=== PATIENT | female | born 1950 | race Caucasian/White ===

== ENCOUNTER → 2019-07-10 14:53 | Outpatient (CLI) | payer OTHER, SELFPAY ==
--- NOTE | 2019-07-10 15:08 | XR_ITS ---
PROCEDURE: XR LUMBAR SPINE 6V W BENDING CLINICAL INDICATION: LT LUMBAR RASICULOPATHY,H/O LUMBAR SURGERY,WEAKNESS LT FOOT COMPARISON: No exams were available for comparison FINDINGS: Mild dextroscoliosis of the lumbar spine with multilevel degenerative disc disease from T12-S1. There is 8 mm anterolisthesis of L3 on L4. There is mild wedging of L1 with loss of height anteriorly of approximately 20 percent. Age indeterminate. There is minimal wedging of L3 and L4 with loss of height anteriorly of approximately 10 percent age indeterminate. Flexion and extension views of lumbar spine show no abnormal subluxation in flexion or extension. There is generalized vascular calcification. IMPRESSION: Dextroscoliosis with multilevel lumbar spondylosis and age indeterminate wedging of L1, L3, and L4 with 8 mm anterolisthesis of L2 on L3 No abnormal subluxation in flexion or extension Dictated by: Iain Arriaga MD 07/10/2019 15:34 Electronically signed by Iain Arriaga MD in [place] 07/10/2019 15:34
== END ==
PROVIDERS: PCP Family Medicine; Visit Provider Family Medicine
DX: M54.16 Radiculopathy, lumbar region (principal); R29.898 Other symptoms and signs involving the musculoskeletal system; Z98.890 Other specified postprocedural states
CPT/HCPCS: 72114

== ENCOUNTER 2022-12-06 12:16 | Inpatient (IN) | payer MEDICARE, OTHER, SELFPAY ==
[2022-12-06] VITALS (14 sets, daily range): BP systolic 110–178; BP diastolic 69–90; PULSE 69–91; RESP 16–20; TEMP 36.6–37.1; O2SAT 94–97; BMI 21.0
--- NOTE | 2022-12-06 12:23 | XR_ITS ---
PROCEDURE INFORMATION: Exam: XR Left Knee Exam date and time: 12/06/2022 12:44 PM Age: 72 years old Clinical indication: Injury or trauma; Fall; Blunt trauma; Knee; Left TECHNIQUE: Imaging protocol: Radiologic exam of the left knee. Views: 3 views. COMPARISON: No relevant prior studies available. FINDINGS: Bones/joints: Diffuse osteopenia. There are pronounced degenerative changes of the knee joint, predominantly involving the medial joint compartment. No visible fracture or dislocation. No joint effusion Soft tissues: Normal. IMPRESSION: 1. There are pronounced degenerative changes of the knee joint, predominantly involving the medial joint compartment. 2. No visible fracture or dislocation.
--- NOTE | 2022-12-06 12:25 | XR_ITS ---
PROCEDURE INFORMATION: Exam: XR Left Hip Exam date and time: 12/06/2022 12:43 PM Age: 72 years old Clinical indication: Injury or trauma; Fall; Blunt trauma (contusions or hematomas); Left; Hip TECHNIQUE: Imaging protocol: Radiologic exam of the left hip. Views: 2 or 3 views hip with pelvis when performed. COMPARISON: CR XR LUMBAR SPINE 6V W BENDING 07/10/2019 3:10 PM FINDINGS: Bones/joints: No visible fracture or dislocation. Soft tissues: Unremarkable. IMPRESSION: No visible fracture or dislocation.
--- NOTE | 2022-12-06 12:25 | XR_ITS ---
PROCEDURE INFORMATION: Exam: XR Right Hip Exam date and time: 12/06/2022 12:40 PM Age: 72 years old Clinical indication: Injury or trauma; Fall; Blunt trauma (contusions or hematomas); Right; Hip TECHNIQUE: Imaging protocol: Radiologic exam of the right hip. Views: 2 or 3 views hip with pelvis when performed. COMPARISON: CR XR LUMBAR SPINE 6V W BENDING 07/10/2019 3:10 PM FINDINGS: Bones/joints: Acute impacted intertrochanteric fracture of the right femur. Mild varus angulation noted. Soft tissues: Unremarkable. IMPRESSION: Acute impacted intertrochanteric fracture of the right femur. Mild varus angulation noted.
--- NOTE | 2022-12-06 12:32 | HMH.EDGENADL ---
Discharge Plan Disposition Patient Disposition: Admitted Condition: Fair Clinical Impressions Clinical Impression: Closed intertrochanteric fracture of right femur Qualifiers: Encounter type: initial encounter Fracture alignment: nondisplaced Qualified Code(s): S72.144A - Nondisplaced intertrochanteric fracture of right femur, initial encounter for closed fracture Discharge ED Provider: Mg Monae Adult HPI General Chief complaint: Fall Stated complaint: fall Time Seen by Provider: 12/06/22 12:30 Mode of Arrival: EMS Source of Information: Patient and EMS Limitations: No Limitations Description of Symptoms (Recalled from ER Triage Doc. by RN): pt to ed c/o fall. pt states she was walking on hardwood floors with wool socks, slipped and fell. pt is c/o pelvic pain. History of Present Illness HPI narrative: This 72-year-old female with a history of diabetes, hyperlipidemia presents to the emergency department 5 days after fall. Patient states she fell 5 days ago, she denies losing consciousness and does not take any blood thinners, but she was unable to get up. She states she was crawling around her house primarily on her left side. She was unable to call for help. Her real estate consultant stop by the house today and found her down. Patient had urinated on herself. She is complaining of pain in the left hip and left knee and states she is generally weak. She has had minimal oral intake in the last few days. Patient also casually mentions that she has leukemia that she is not being treated for. Related Data Home Medications Medication Instructions Recorded Confirmed amlodipine 10 mg tablet 10 mg PO DAILY 12/06/22 12/06/22 atorvastatin 40 mg tablet 40 mg PO DAILY 12/06/22 12/06/22 lisinopril 40 mg tablet 40 mg PO DAILY 12/06/22 12/06/22 metformin 500 mg tablet 500 mg PO DAILY 12/06/22 12/06/22 Allergies Allergy/AdvReac Type Severity Reaction Status Date / Time No Known Allergies Allergy Verified 12/06/22 12:18 [facility] Disclaimer: The information contained in this section may have been updated after the patient was seen, as this information can be updated by other users. Medical History (Updated 12/06/22 @ 16:29 by Mg Monae MD) Diabetes HLD (hyperlipidemia) HTN (hypertension) Leukemia Family History Other No significant family history Social History (Updated 12/06/22 @ 16:19 by Camilla Seymour RN) Smoking Status: Never smoker alcohol intake: never current occupational status: other Travel in the last 8 weeks: None ROS Obtained: Yes All systems reviewed & no additional complaints except as documented Constitutional Constitutional: Reports body ache, Denies chills, Denies fever(s), Denies headache(s) and Reports weakness Eyes Eyes: Denies change in vision ENT Ears, Nose, Mouth, and Throat: Denies dizziness, Denies headache(s), Denies nasal congestion and Denies sore throat Cardiovascular Cardiovascular: Denies chest pain, Denies dyspnea and Denies leg edema Respiratory Respiratory: Denies cough and Denies dyspnea Gastrointestinal Gastrointestingal: Denies constipation, diarrhea, nausea or vomiting Genitourinary Female Genitourinary: Denies dysuria Musculoskeletal Musculoskeletal: Reports as per HPI, Reports arthralgias, Reports muscle weakness (Diffuse, baseline), Denies myalgias, Denies numbness and Denies tingling Integumentary/Breasts Skin/Breast: Denies change in pigmentation Neurologic Neurologic: Denies dizziness, Denies headache(s), Denies numbness, Denies tingling and Reports weakness Physical Exam General General appearance: alert, in no apparent distress and cachectic Head Head exam: atraumatic and normocephalic Eye Eye exam: Present PERRL and EOMI ENT ENT exam: Present mucous membranes moist Neck Neck exam: Present normal inspection and full ROM Chest Chest inspection: Present symmetric chest wall rise
[2022-12-06 12:33] LABS: Microscopic, Urine URINE MICROSCOPIC (MICROSCOPIC)
[2022-12-06 12:38] LABS: Appearance,Urine CLEAR (Clear); Bilirubin,Urine Negative (Negative); Blood, Urine Negative (Negative); Color,Urine YELLOW (Yellow); Glucose,Urine (UA) Negative (Negative); Ketones,Urine TRACE (Negative); Leukocyte Esterase,Urine Negative (Negative); Nitrate,Urine Negative (Negative); Protein,Urine Negative (Negative); Urobilinogen,Urine 0.2 EU/dl (0.2)
[2022-12-06 12:38] LABS: POC Glucose,Bedside 103 (70-110)
[2022-12-06 12:41] LABS: Squamous Epithelial Cell,Urine Occasional #/hpf (0-5); WBC,Urine Occasional #/hpf (0-3)
--- NOTE | 2022-12-06 12:59 | PC.NURSE ---
PT RETURNED FROM XR
[2022-12-06 13:36] LABS: Chloride 101 mmol/L (98-107); Potassium 3.9 mmoL/L (3.5-5.1); Sodium 136 mmol/L (136-145)
[2022-12-06 13:39] LABS: Alanine Aminotransferase 34 U/L (12-78); Albumin Level 3.8 g/dl (3.5-5.0); Albumin/Globulin Ratio 1.3 (1.1-1.8); Alkaline Phosphatase 79 U/L (38-126); Anion Gap 9.9 mEq/L (5-15); Aspartate Amino Transferase 50 U/L (14-36); Bilirubin,Total 1.3 mg/dl (0.2-1.3); Blood Urea Nitrogen 31 mg/dl (7-17); Calcium 8.9 mg/dl (8.4-10.2); Carbon Dioxide 29 mmol/L (22.0-30.0); Creatine Kinase 290 U/L (30-135); Creatinine Clearance Estimated 42 mL/min (50-200); Estimated Glomerular Filt Rate 99 ml/min (>60); GFR (African American) 119 ML/MIN (>60); Globulin 2.9 g/dL (1.3-3.2); Glucose 100 mg/dl (74-100); Total Protein,Serum 6.7 g/dl (6.3-8.2)
[2022-12-06 13:40] LABS: Lactic Acid 1.1 mmol/L (0.7-2.1)
--- NOTE | 2022-12-06 13:46 | ECG_ITS ---
APPROVED REPORT Exam: Resting ECG HR:83 bpm ECG Measurements Heart Rate 83 AXES QRSd 83 QRS 64 QT 380 T 31 QTc 419 Conclusion ATRIAL FIBRILLATION NONSPECIFIC ST & T-WAVE ABNORMALITY ABNORMAL RHYTHM ECG UNCONFIRMED REPORT Electronically signed by : Antonino De Leon MD 12/07/2022 20:25:23
[2022-12-06 14:14] LABS: Basophils # 3.2 K/mm3 (0-0.2); Eosinophils # 0.1 K/mm3 (0.0-0.4); Eosinophils % 0.1 % (0.1-12.0); Hematocrit 39.1 % (37.0-47.0); Hemoglobin 13.7 g/dL (12.2-16.2); Lymphocytes # 67.4 K/mm3 (0.7-4.5); Lymphocytes % 83.4 % (10-50); Mean Corpuscular Hemoglobin 29.6 pg (27.0-31.2); Mean Corpuscular Volume 84.5 fl (81-99); Mean Platelet Volume 8.4 fl (7.4-10.4); Monocytes % 1.2 % (1.7-9.3); Neutrophils # 12.3 K/mm3 (1.8-7.8); Neutrophils % 15.3 % (37.0-80.0); Platelet Count 278 K/mm3 (142-424); Red Blood Count 4.62 M/mm3 (4.20-5.40); Red Cell Distribution Width 13.8 % (11.5-17.5)
[2022-12-06 14:21] LABS: White Blood Count 80.8 K/mm3 (4.8-10.8)
[2022-12-06 14:22] LABS: MANUAL DIFFERENTIAL MANUAL DIFFERENTIAL (MANUAL DIFF)
[2022-12-06 14:34] LABS: Lymphocytes % 78 % (10-50); Monocytes % 3 % (2-9); Neutrophils % 19 % (42-76); Platelet Estimate Normal; RBC Morphology Normal; Total Cells Counted 100
--- NOTE | 2022-12-06 15:27 | EXP.HP ---
History of Present Illness *Admission Date: 12/06/22 *Reason for visit:: fall, hip pain *History of present illness: Ms. Ahumada is a 72-year-old female with history of hypertension, prediabetes, CLL (on no treatment), and hyperlipidemia. She was brought to the ER via EMS after being found on the floor at her home by her realtor. States she was walking on the floor in socks while taking her dog out approximately 5 days ago when she slipped and fell. Had onset of right hip pain. Has spent the past 5 days getting around her house on the floor and is skinned her knees and her left hip. Did not have the ability to get help as she lives by herself. Was found today by her realtor as she is in the process of selling her home. Denies any trauma to her head, loss of consciousness. Not on any blood thinners. No chest pain, shortness of breath, nausea or vomiting. She does smoke but has not had much to smoke, eat, or drink for the past 5 days. On evaluation she mentioned she has leukemia. Labs obtained in the ER along with imaging show intertrochanteric fracture of the right hip and leukocytosis of 80,000, lymphocyte predominant. Medicine was consulted for admission with orthopedics consult in the morning. Reviewed patient's chart in epic with as well as contacting [facility] in [place]. -Patient last seen at in 2016 after suspected stroke. Had some narrowing of her [employer] vasculature but CT does not mention jessica stroke. At that time A1c was at 6.6, TSH normal, white cell count 12, remainder of labs unremarkable -Most recent labs obtained on November 13 at [facility] with white cell count of 56,000. Last seen in the ER at [facility] in 2016 prior to being transferred to for reason above. On September 16, 2021, diagnosis of CLL was entered in her chart in the [facility] [employer] system. -Has seen oncology in [place], not currently on any treatment. No plan for chemotherapy or radiation. Patient does not want anything other than vitamins or supplements to treat her current condition. When discussing CODE STATUS and if she would want aggressive measures to bring her back to life if her heart stopped or if she , patient states she wants to be cared for to the best of our ability but if she dies she wants to pass peacefully. We will make her DNR. [facility] Disclaimer: The information contained in this section may have been updated after the patient was seen, as this information can be updated by other users. Medical History Diabetes HLD (hyperlipidemia) HTN (hypertension) Leukemia Surgical History No pertinent past surgical history Family History No significant family history Social History Smoking Status: Never smoker alcohol intake: never current occupational status: other Travel in the last 8 weeks: None Review of Systems Review of Systems Review of systems (narrative): 14 point review of systems performed, pertinent positives and negatives as per HPI Constitutional Constitutional: Denies headache(s) and Reports weakness ENT Ears, Nose, Mouth, and Throat: Denies dizziness and Denies headache(s) *Musculoskeletal Musculoskeletal: Denies numbness and Denies tingling *Neurologic Neurologic: Denies dizziness, Denies headache(s), Denies numbness, Denies tingling and Reports weakness Meds Home Medications and Allergies Home Medications Medication Instructions Recorded Confirmed Type amlodipine 10 mg tablet 10 mg PO DAILY 12/06/22 12/06/22 History atorvastatin 40 mg tablet 40 mg PO DAILY 12/06/22 12/06/22 History lisinopril 40 mg tablet 40 mg PO DAILY 12/06/22 12/06/22 History metformin 500 mg tablet 500 mg PO DAILY 12/06/22 12/06/22 History New Prescriptions to Start Prescriptions: Allergies Allergy/AdvReac Type Jillian
--- NOTE | 2022-12-06 15:35 | PC.NURSE ---
report called to lourdes RN
[2022-12-06 15:41] LABS: Lactate Dehydrogenase 285 U/L (313-618); Uric Acid 5.6 mg/dl (2.5-6.2)
[2022-12-06 15:43] LABS: Activated Partial Thrombo Time 28.3 seconds (22.8-30.6); INR 1.01 (0.9-1.1); Prothrombin Time 10.9 seconds (10.1-12.5)
--- NOTE | 2022-12-06 15:56 | PC.NURSE ---
arrived to floor by stretcher from ED
[2022-12-06 15:59] LABS: 25-OH Vitamin D, Total 68.1 ng/mL (30-100)
[2022-12-06 16:05] LABS: Hemoglobin A1C 5.7 % (4.0-6.0)
[2022-12-06 16:13] LABS: Thyroid Stimulating Hormone 9.95 uIU/mL (0.465-4.68)
--- NOTE | 2022-12-06 17:20 | CT_ITS ---
PROCEDURE INFORMATION: Exam: CT Right Lower Extremity Without Contrast, Hip Exam date and time: 12/06/2022 6:06 PM Age: 72 years old Clinical indication: Injury or trauma; Blunt trauma; Patient HX: Right hip pain due to fall; Additional info: Eval bone stability for surgery. TECHNIQUE: Imaging protocol: CT of the right lower extremity without contrast was performed. Exam focused on the hip. 3D rendering (Not supervised by radiologist): MIP and/or 3D reconstructed images were created by the technologist. Radiation optimization: All CT scans at this facility use at least one of these dose optimization techniques: automated exposure control; mA and/or kV adjustment per patient size (includes targeted exams where dose is matched to clinical indication); or iterative reconstruction. REPORTING DATA: Count of CT and Cardiac NM exams in prior 12 months: This patient has received 0 known CTs and 0 known cardiac nuclear medicine studies in the 12 months prior to the current study. COMPARISON: CR XR HIP RT 2-3V W/PELVIS 12/06/2022 12:40 PM FINDINGS: Bones/joints: Acute comminuted intertrochanteric fracture is re-identified. Alignment is not substantially changed from prior exam. Deformity along the distal sacrococcygeal junction favored sequela of prior injury. Soft tissues: Muscle edema noted. No discrete hematoma. IMPRESSION: Acute comminuted intertrochanteric fracture of the right femur.
[2022-12-06 17:25] LABS: POC Glucose,Bedside 102 (70-110)
--- NOTE | 2022-12-06 17:40 | XR_ITS ---
FINAL REPORT CLINICAL HISTORY: wheeze COMPARISON: 12/06/2022 FINDINGS: A single portable view of the chest was obtained. The heart size and pulmonary vascularity are within normal limits. The mediastinum is within normal limits. Persistent right base opacity of uncertain etiology but may represent unusual atelectasis or pneumonia. Mass is not excluded.. The bony thorax is intact. IMPRESSION: Persistent right base opacity may represent unusual atelectasis or pneumonia. Mass not excluded. Recommend chest CT with contrast. Reviewed, Interpreted and Dictated by Grant Lugo III, MD Transcribed by Mar Cerna Authenticated and [facility]
--- NOTE | 2022-12-06 17:44 | PC.WOUNDNOTE ---
LEFT OUTER KNEE LEFT HIP BRUISING TO RIGHT INNER THIGH
[2022-12-06 20:15] LABS: POC Glucose,Bedside 119 (70-110)
[2022-12-07] VITALS (21 sets, daily range): BP systolic 99–145; BP diastolic 44–74; PULSE 64–86; RESP 14–20; TEMP 36.4–43; O2SAT 87–95; BMI 22.1
--- NOTE | 2022-12-07 03:52 | PC.NURSE ---
No pain reported from patient. VS stable and patient remained on room air. Patient able to rest this shift.
[2022-12-07 06:06] LABS: POC Glucose,Bedside 108 (70-110)
[2022-12-07 06:21] LABS: Chloride 103 mmol/L (98-107); Potassium 4.2 mmoL/L (3.5-5.1); Sodium 133 mmol/L (136-145)
[2022-12-07 06:23] LABS: Alanine Aminotransferase 26 U/L (12-78); Aspartate Amino Transferase 42 U/L (14-36); Blood Urea Nitrogen 25 mg/dl (7-17); Creatinine Clearance Estimated 44 mL/min (50-200); Estimated Glomerular Filt Rate 99 ml/min (>60); GFR (African American) 119 ML/MIN (>60)
[2022-12-07 06:24] LABS: Albumin Level 3.1 g/dl (3.5-5.0); Albumin/Globulin Ratio 1.2 (1.1-1.8); Alkaline Phosphatase 61 U/L (38-126); Anion Gap 6.2 mEq/L (5-15); Calcium 8.3 mg/dl (8.4-10.2); Carbon Dioxide 28 mmol/L (22.0-30.0); Globulin 2.6 g/dL (1.3-3.2); Glucose 97 mg/dl (74-100); Magnesium 1.9 mg/dl (1.6-2.3); Total Protein,Serum 5.7 g/dl (6.3-8.2)
[2022-12-07 06:43] LABS: Basophils # 0.2 K/mm3 (0-0.2); Basophils % 0.3 % (0.1-2.0); Eosinophils # 0.2 K/mm3 (0.0-0.4); Eosinophils % 0.3 % (0.1-12.0); Hematocrit 33.1 % (37.0-47.0); Lymphocytes # 55.5 K/mm3 (0.7-4.5); Lymphocytes % 84.9 % (10-50); Mean Corpuscular HGB Conc 36.5 g/dL (31.8-35.4); Mean Corpuscular Hemoglobin 30.5 pg (27.0-31.2); Mean Corpuscular Volume 83.5 fl (81-99); Mean Platelet Volume 8.6 fl (7.4-10.4); Monocytes # 0.8 K/mm3 (0.1-1.0); Monocytes % 1.2 % (1.7-9.3); Neutrophils # 8.7 K/mm3 (1.8-7.8); Platelet Count 280 K/mm3 (142-424); Red Blood Count 3.96 M/mm3 (4.20-5.40); Red Cell Distribution Width 13.7 % (11.5-17.5)
[2022-12-07 06:50] LABS: Hemoglobin 12.1 g/dL (12.2-16.2)
[2022-12-07 06:51] LABS: Neutrophils % 13.3 % (37.0-80.0)
[2022-12-07 07:13] LABS: White Blood Count 65.4 K/mm3 (4.8-10.8)
[2022-12-07 07:14] LABS: MANUAL DIFFERENTIAL MANUAL DIFFERENTIAL (MANUAL DIFF)
--- NOTE | 2022-12-07 07:21 | EXP.ORTH.CON ---
History of Present Illness *Admission Date: 12/06/22 *Reason for visit:: Right hip fracture *History of present illness: Ms. Ahumada is a 72-year-old female with history of hypertension, prediabetes, CLL (on no treatment), and hyperlipidemia. She was brought to the ER via EMS after being found on the floor at her home by her realtor. States she was walking on the floor in socks while taking her dog out approximately 5 days ago when she slipped and fell. Had onset of right hip pain. Has spent the past 5 days getting around her house on the floor and is skinned her knees and her left hip. Did not have the ability to get help as she lives by herself. Was found today by her realtor as she is in the process of selling her home. Denies any trauma to her head, loss of consciousness. Not on any blood thinners. No chest pain, shortness of breath, nausea or vomiting. She does smoke but has not had much to smoke, eat, or drink for the past 5 days. On evaluation she mentioned she has leukemia. Labs obtained in the ER along with imaging show intertrochanteric fracture of the right hip and leukocytosis of 80,000, lymphocyte predominant. Reviewed patient's chart in epic with as well as contacting [facility] in [place]. -Patient last seen at in 2016 after suspected stroke. Had some narrowing of her [employer]CH [employer]PER[employer] vasculature but CT does not mention jessica stroke. At that time A1c was at 6.6, TSH normal, white cell count 12, remainder of labs unremarkable -Most recent labs obtained on November 13 at [facility] with white cell count of 56,000. Last seen in the ER at [facility] in 2016 prior to being transferred to for reason above. On September 16, 2021, diagnosis of CLL was entered in her chart in the [facility] system. -Has seen oncology in [place], not currently on any treatment. No plan for chemotherapy or radiation. Patient does not want anything other than vitamins or supplements to treat her current condition. [facility] Disclaimer: The information contained in this section may have been updated after the patient was seen, as this information can be updated by other users. Medical History Diabetes HLD (hyperlipidemia) HTN (hypertension) Leukemia Surgical History No pertinent past surgical history Family History Other No significant family history Social History Smoking Status: Never smoker alcohol intake: never current occupational status: other Travel in the last 8 weeks: None Review of Systems Constitutional Constitutional: Denies headache(s) and Reports weakness ENT Ears, Nose, Mouth, and Throat: Denies dizziness and Denies headache(s) *Musculoskeletal Musculoskeletal: Denies numbness and Denies tingling *Neurologic Neurologic: Denies dizziness, Denies headache(s), Denies numbness, Denies tingling and Reports weakness Meds Home Medications and Allergies Home Medications Medication Instructions Recorded Confirmed Type amlodipine 10 mg tablet 10 mg PO DAILY 12/06/22 12/06/22 History atorvastatin 40 mg tablet 40 mg PO DAILY 12/06/22 12/06/22 History lisinopril 40 mg tablet 40 mg PO DAILY 12/06/22 12/06/22 History metformin 500 mg tablet 500 mg PO DAILY 12/06/22 12/06/22 History New Prescriptions to Start Prescriptions: Allergies Allergy/AdvReac Type Severity Reaction Status Date / Time No Known Allergies Allergy Verified 12/06/22 12:18 Ortho Exam (Inpt) Vital signs and Labs for Last 24 Hours: Temp Pulse Resp BP Pulse Ox O2 Del Method 98.9 F 76 18 124/74 94 L Room Air 12/07/22 04:00 12/07/22 04:00 12/07/22 04:00 12/07/22 04:00 12/07/22 04:00 12/07/22 06:35 Laboratory Results - last 24 hr 12/06/22 12:29: Urine Color Yellow, Urine Appearance Clear, Urine pH 6.0, Ur Specif
[2022-12-07 07:36] LABS: Lymphocytes % 87 % (10-50); Neutrophils % 13 % (42-76); Total Cells Counted 100
[2022-12-07 07:40] LABS: Differential Comment YES; Platelet Estimate Normal; RBC Morphology Normal
--- NOTE | 2022-12-07 08:16 | EXP.ACUTE.PN ---
Subjective *Date: 12/07/22 *Time: 15:27 Interval history: Stable on room air. No nausea or vomiting. Pain responding to current regimen. Labs reviewed and stable. EKG this morning in normal sinus rhythm. Optimized for surgery. Medical Exam Vital signs and Labs for Last 24 Hours: Vital Signs Temp Pulse Pulse Resp BP BP Pulse Ox 12/07/22 07:53 98.3 F 86 18 126/69 94 L 12/07/22 06:35 12/07/22 05:07 12/07/22 04:00 98.9 F 76 18 124/74 94 L 12/07/22 03:05 12/07/22 01:03 12/06/22 23:48 77 12/06/22 23:03 12/06/22 20:07 12/06/22 21:05 12/06/22 20:00 98.7 F 78 16 110/69 94 L 12/06/22 18:10 12/06/22 18:08 12/06/22 17:45 74 12/06/22 17:45 74 12/06/22 17:00 12/06/22 15:00 12/06/22 15:51 97.9 F 78 20 144/78 H 12/06/22 15:00 72 16 149/80 H 95 12/06/22 14:45 76 17 145/80 H 96 12/06/22 14:30 74 153/84 H 97 12/06/22 14:16 73 169/90 H 96 12/06/22 14:01 16 167/85 H 95 12/06/22 13:45 76 16 178/81 H 94 L 12/06/22 13:30 91 H 138/90 94 L 12/06/22 13:22 69 176/79 H 95 12/06/22 12:30 82 171/75 H 94 L 12/06/22 12:19 97.9 F 86 20 153/85 H 96 O2 Del Method 12/07/22 07:53 Room Air 12/07/22 06:35 Room Air 12/07/22 05:07 Room Air 12/07/22 04:00 Room Air 12/07/22 03:05 Room Air 12/07/22 01:03 Room Air 12/06/22 23:48 12/06/22 23:03 Room Air 12/06/22 20:07 Room Air 12/06/22 21:05 Room Air 12/06/22 20:00 Room Air 12/06/22 18:10 Room Air 12/06/22 18:08 Room Air 12/06/22 17:45 12/06/22 17:45 12/06/22 17:00 Room Air 12/06/22 15:00 Room Air 12/06/22 15:51 Room Air 12/06/22 15:00 12/06/22 14:45 12/06/22 14:30 12/06/22 14:16 12/06/22 14:01 12/06/22 13:45 12/06/22 13:30 12/06/22 13:22 12/06/22 12:30 12/06/22 12:19 Room Air Intake and Output 12/06/22 12/07/22 12/07/22 23:59 07:59 15:59 Intake Total 240 / 240 Output Total 0 / 0 Balance 240 / 240 0 / 0 Intake: Intake, Oral Amount 240 / 240 Output: Output, Urine Amount 0 / 0 Other: Number of Unmeasured Voids 1 1 Weight 54.573 kg Patient Weight 12/07/22 23:59 Weight 54.573 kg Laboratory Results - last 24 hr 12/06/22 12:29: Urine Color Yellow, Urine Appearance Clear, Urine pH 6.0, Ur Specific [place] 1.020, Urine Protein Negative, Urine Glucose (UA) Negative, Urine Ketones Trace, Urine Blood Negative, Urine Nitrate Negative, Urine Bilirubin Negative, Urine Urobilinogen 0.2, Ur Leukocyte Esterase Negative, Urine RBC None, Urine WBC Occasional, Ur Squamous Epith Cells Occasional, Urine Bacteria None 12/06/22 12:30: POC Glucose 103 12/06/22 13:25: WBC 80.8 H*, RBC 4.62, Hgb 13.7, Hct 39.1, MCV 84.5, MCH 29.6, MCHC 35.0, RDW 13.8, Plt Count 278, MPV 8.4, Neut % (Auto) 15.3 L, Lymph % (Auto) 83.4 H, Taylor % (Auto) 1.2 L, Eos % (Auto) 0.1, Baso % (Auto) 4.0 H, Neut # (Auto) 12.3 H, Lymph # (Auto) 67.4 H, Taylor # (Auto) 1.0, Eos # (Auto) 0.1, Baso # (Auto) 3.2 H, Total Counted 100, Neutrophils % (Manual) 19 L, Lymphocytes % (Manual) 78 H, Monocytes % (Manual) 3, Platelet Estimate Normal, RBC Morphology Normal, PT 10.9, INR 1.01, APTT 28.3, Sodium 136, Potassium 3.9, Chloride 101, Carbon Dioxide 29, Anion Gap 9.9, BUN 31 H, Creatinine 0.60, Estimated Creat Clear 42, Estimated GFR 99, Est GFR ( Amer) 119, Glucose 100, Hemoglobin A1c 5.7, Lactate 1.1, Uric Acid 5.6, Calcium 8.9, Total Bilirubin 1.3, AST 50 H, ALT 34, Alkaline Phosphatase 79, Lactate Dehydrogenase 285 L, Total Creatine Kinase 290 H, Total Protein 6.7, Albumin 3.8, Globulin 2.9, Albumin/Globulin Ratio 1.3, 25-OH Vitamin D Total 68.1, TSH 9.95 H 12/06/22 17:17: POC Glucose 102 12/06/22 20:07: POC Glucose 119 H 12/07/22 05:58: POC Glucose 108 12/07/22 06:00: WBC 65.4 H*, RBC 3.96 L, Hgb 12.1 L D, Hct 33.1 L, MCV 83.5, MCH 30.5, MCHC 36.5 H, RDW 13.
--- NOTE | 2022-12-07 08:19 | ECG_ITS ---
APPROVED REPORT Exam: Resting ECG HR:67 bpm ECG Measurements Heart Rate 67 AXES CO 139 P 81 QRSd 84 QRS 35 QT 428 T 32 QTc 444 Conclusion SINUS RHYTHM NORMAL ECG UNCONFIRMED REPORT Electronically signed by : Antonino De Leon MD 12/07/2022 20:19:10
--- NOTE | 2022-12-07 08:56 | PC.NURSE ---
pt going off the floor to surgery at this time.
--- NOTE | 2022-12-07 08:56 | HMH.PHAINT1 ---
Pharmacy Intervention Comments: HOME MEDICATION LIST VERIFIED USING HOME BOTTLES
--- NOTE | 2022-12-07 09:23 | EXP.ANES.CKL ---
[facility] Disclaimer: The information contained in this section may have been updated after the patient was seen, as this information can be updated by other users. Medical History Diabetes HLD (hyperlipidemia) HTN (hypertension) Leukemia Surgical History No pertinent past surgical history Family History Other No significant family history Social History Smoking Status: Never smoker alcohol intake: never current occupational status: other Travel in the last 8 weeks: None [facility] Anesthesia Checklist Patient Identification Patient Identification: Arm Band Structural Data Admitted From: Inpatient Planned Operative Procedure/s: Right hip nailing Consent for Planned Operative Procedure(s) Verified: Yes Verified Documents: Surgical Consent and History and Physical NPO Status Verified Time NPO: 00:00 Additional verifications Patient : No Anesthesia Reactions: No Hx Blood Transfusions: No Blood Transfusion Reaction: No Cephalosporin Allergy: No Previous Colonoscopy: No Airway Assessment Mallampati Score:: Class III C-Spine Mobility Assessed: Yes TMJ Mobility Assessed: Yes Dentition: Poor Dentition Neurological Assessment Level of Consciousness: Awake, Alert, Appropriate and Follows Commands Hx Seizures: No Numbness or tingling in extremities: No Anesthesia Plan Anesthesia Risk discussed: Yes ASA Class: III Anesthesia Type: General Preoperative Comments Pre-Operative Comments: Leukemia. white coun 90,000 yesturday, 60,000 today
--- NOTE | 2022-12-07 10:57 | XR_ITS ---
FINAL REPORT CLINICAL HISTORY: NAILING IN OR fluoro time 1:02, 10.88 mgy FINDINGS: FLUOROSCOPY TIME LESS THAN ONE HOUR HISTORY: Right hip pinning intraoperative. FINDINGS: Fluoroscopy guidance was provided for positioning of intraoperative pins. 3 spot films were obtained. Fluoroscopy time was 1 minute and 2 seconds at a dosage of 10.88 MGy. IMPRESSION: As above. Reviewed, Interpreted and Dictated by Grant Lugo III, MD Transcribed by Mari Wooten Authenticated and [facility]
--- NOTE | 2022-12-07 11:19 | P.OP_ITS ---
Date of procedure: 12/07/22 Pre-op Diagnosis:: Right intertrochanteric hip fracture Post-op Diagnosis:: Same Procedure performed:: Cephalomedullary nailing right proximal femur Surgeon:: Jerome Beverly DO JUNIOR LEGAL SECRETARY:: Other Anesthesia: GETA Estimated blood loss (mL): 100 Operative findings:: See dictation Operative note:: Patient was identified preoperatively. Right hip marked with a yes and my initials. Transported operative suite. Beauchamp catheter placed. General anesthesia administered. Then placed on the fracture table. With all bony prominences well-padded. Her right hip was placed inline traction. The x-ray C arm machine was brought in. Reduction maneuver was performed to reduce the intertrochanteric hip fracture. Traction internal rotation created anatomic reduction of the hip fracture. Then the right hip was prepped and draped in normal sterile fashion. Once prepped and draped final operative timeout performed to identify proper patient procedure and extremity. Everyone involved in the case agreed. There were no counter indications to be given. She did receive preoperative antibiotics. Marking pen was made to make planned incision 2 fingerbreadths above the greater trochanter. Skin knife was used to incise through skin careful dissection is taken down IT band was split. The opening guidewire was then placed on the tip of the greater trochanter and advanced into the canal. This was confirmed on the AP and lateral x-rays. Opening reamer was then placed. Then a size 11 nail from the [employer] TFN system was utilized and placed over the guidewire and hammered down into place to adequate placement of the helical blade. The cannulated triple cannula set was put in place then the guidewire was placed and viewed on the AP and lateral views to get proper placement of the guidewire. Attention been made to the tip apex distance. Lateral cortex reamer was utilized and then step reamer was utilized and a size 95 nail was impacted in place. Attention was then brought superiorly where the sliding screw was locked into place with a flexible reamer. Attention was then brought distally. Where the distal locking screw was placed. Irrigation of the wound performed. X-rays taken the AP and lateral views and saved. Irrigation repeated. Deep layers of the IT band closed with 0 Vicryl stitch subcutaneous with 2-0 Vicryl stitch surgical clips in the skin for closure. Sterile hip dressing placed. Patient waken anesthesia taken recovery in stable condition. Condition: stable Disposition: PACU Complications:: None apparent
--- NOTE | 2022-12-07 11:22 | P.PNANES_ITS ---
[facility] Anesthesia Record Part I Anesthesia Record I Intake, IV Amount: 500 Hydration: Adequate Estimated blood loss (mL): 200 Urine output (mL): 300 Blood Products used (#): none Blood Pressure: 130/64 SaO2: 92 Pulse Rate: 85 Airway Patency: Patent Respiratory Rate: 14 Temperature: 98 F Patient is:: Drowsy and Stable Stable to PACU at:: 11:15
--- NOTE | 2022-12-07 11:26 | P.PNANES_ITS ---
[facility] Disclaimer: The information contained in this section may have been updated after the patient was seen, as this information can be updated by other users. Medical History Diabetes HLD (hyperlipidemia) HTN (hypertension) Leukemia Surgical History No pertinent past surgical history Family History Other No significant family history Social History Smoking Status: Never smoker alcohol intake: never substance use type: denies use current occupational status: other Travel in the last 8 weeks: None [facility] Anesthesia Checklist Patient Identification Patient Identification: Arm Band Structural Data Planned Operative Procedure/s: right hip nailing Consent for Planned Operative Procedure(s) Verified: Yes Verified Documents: Surgical Consent and History and Physical NPO Status Verified Time NPO: 00:00 Additional verifications Patient : No Anesthesia Reactions: No Hx Blood Transfusions: No Blood Transfusion Reaction: No Cephalosporin Allergy: No Previous Colonoscopy: No Airway Assessment Mallampati Score:: Class III C-Spine Mobility Assessed: Yes TMJ Mobility Assessed: Yes Dentition: Poor Dentition Neurological Assessment Level of Consciousness: Awake, Lethargic and Restless Hx Seizures: No Numbness or tingling in extremities: No Anesthesia Plan Anesthesia Risk discussed: Yes ASA Class: III Anesthesia Type: General Preoperative Comments Pre-Operative Comments: leukemia. WBC 90,000 yesterday, 60,000 today.
--- NOTE | 2022-12-07 12:00 | PC.NURSE ---
pt returned from surgery at this time. f/c in place and draining at bedside. pt aligned in the bed. pt pulling off gown. call light w/i reach, bed alarm on.
--- NOTE | 2022-12-07 13:30 | SW/DCPLANNER ---
Addendum entered by [facility] 12/11/22 10:01: Per Cesario w/ JULIO CÉSAR patient did pass a mini-mental and is able to sign her own paperwork for admission at [facility]. Cesario is fine w/ patient discharging to [facility] SNF level of care today. is fine w/ patient discharging to [facility]: Abi vergara/ [facility] is also agreeable. Patient will discharge to [facility] today SNF level of care. Addendum entered by Maren Macomb 12/11/22 07:36: Per Cesario w/ JULIO CÉSAR he will be onsite to speak w/ this patient between 8Am-12PM today. Cesario is aware that patient is medically stable for discharge. Addendum entered by [facility] 12/10/22 15:14: I attempted to contact the APS worker assigned to this case (Cesario Hines [phone]): no answer at this time/ VM left. Addendum entered by [facility] 12/09/22 13:14: Per Central Intake this case does meet criteria for investigation. I will update . Addendum entered by [facility] 12/09/22 12:47: I did make an APS report regarding patient's situation: laying in home for 5 days, AMS (at times does not know place/time/location), recently selling home without somewhere else to go, nobody to assist in decision making aside from realtor, son in fpc and being accepted to [facility] but not able to sign paperwork. ID# for this case is [id number]. Addendum entered by Maren Macomb 12/08/22 10:35: Updated patient information will be faxed to Abi vergara/ [facility]. The plan for this patient is to discharge tomorrow pending no setbacks. Addendum entered by [facility] 12/07/22 15:07: Abi vergara/ [facility] stated that she can accept this patient SNF level of care once medically stable for discharge. Original Note: I spoke w/ patient and her friend (Robert) that helps her at home. Per Robert patient will not have a home to discharge to once medically stable. Patient did have hip surgery this AM and was able to answer all questions appropriately. I did explain to patient and Robert the PT/OT will evaluate her tomorrow morning but will more than likely recommend SNF level of care. Patient is agreeable to placement if needed and prefers [facility]. Patient information will be faxed to Abi vergara/ [facility] today. I will continue to follow up w/ Robert lima [facility] and . Discharge date is unknown at this time.
--- NOTE | 2022-12-07 15:37 | DIET.NUTRFU ---
RD consulted to evaluate for malnutrition, low farhana score. Patient had sx today and unable to interview. Will access nutritional status tomorrow when more alert and able to answer questions. She is looking for placement currently for rehab.
[2022-12-07 16:13] LABS: Microscopic,Cath URINE MICROSCOPIC (MICROSCOPIC)
[2022-12-07 16:16] LABS: Appearance,Urine/Cath CLEAR (Clear); Bilirubin,Cath Negative (Negative); Blood, Urine/Cath Negative (Negative); Color,Urine/Cath YELLOW (Yellow); Glucose,Urine/Cath (UA) Negative (Negative); Ketones,Urine/Cath Negative (Negative); Leukocyte Esterase,Cath Negative (Negative); Nitrate,Cath Negative (Negative); Protein,Urine/Cath Negative (Negative); Urobilinogen,Cath 0.2 EU/dl (0.2)
[2022-12-08] VITALS (12 sets, daily range): BP systolic 122–147; BP diastolic 45–80; PULSE 68–87; RESP 17–20; TEMP 36.6–37.2; O2SAT 85–95; BMI 24.0
--- NOTE | 2022-12-08 03:36 | PC.NURSE ---
Patient easily aroused but very fatigued after surgery. No pain reported except for movement. VS stable. Patient able to sleep for most of shift
[2022-12-08 06:26] LABS: Chloride 103 mmol/L (98-107); Sodium 132 mmol/L (136-145)
[2022-12-08 06:27] LABS: Potassium 4.5 mmoL/L (3.5-5.1)
[2022-12-08 06:29] LABS: Alanine Aminotransferase 21 U/L (12-78); Alkaline Phosphatase 62 U/L (38-126); Anion Gap 4.5 mEq/L (5-15); Aspartate Amino Transferase 32 U/L (14-36); Bilirubin,Total 0.7 mg/dl (0.2-1.3); Blood Urea Nitrogen 17 mg/dl (7-17); Carbon Dioxide 29 mmol/L (22.0-30.0); Creatinine Clearance Estimated 48 mL/min (50-200); Estimated Glomerular Filt Rate 122 ml/min (>60); GFR (African American) 147 ML/MIN (>60)
[2022-12-08 06:30] LABS: Albumin/Globulin Ratio 1.3 (1.1-1.8); Globulin 2.4 g/dL (1.3-3.2); Glucose 102 mg/dl (74-100); Total Protein,Serum 5.4 g/dl (6.3-8.2)
[2022-12-08 06:32] LABS: Basophils % 1.6 % (0.1-2.0); Eosinophils # 0.1 K/mm3 (0.0-0.4); Eosinophils % 0.2 % (0.1-12.0); Hematocrit 31.8 % (37.0-47.0); Hemoglobin 11.1 g/dL (12.2-16.2); Lymphocytes # 53.9 K/mm3 (0.7-4.5); Lymphocytes % 81.9 % (10-50); Mean Corpuscular HGB Conc 34.9 g/dL (31.8-35.4); Mean Corpuscular Hemoglobin 29.5 pg (27.0-31.2); Mean Corpuscular Volume 84.3 fl (81-99); Mean Platelet Volume 7.8 fl (7.4-10.4); Monocytes # 0.9 K/mm3 (0.1-1.0); Monocytes % 1.3 % (1.7-9.3); Neutrophils # 9.9 K/mm3 (1.8-7.8); Platelet Count 294 K/mm3 (142-424); Red Blood Count 3.76 M/mm3 (4.20-5.40); Red Cell Distribution Width 13.9 % (11.5-17.5)
[2022-12-08 06:46] LABS: MANUAL DIFFERENTIAL MANUAL DIFFERENTIAL (MANUAL DIFF); White Blood Count 65.8 K/mm3 (4.8-10.8)
[2022-12-08 07:26] LABS: Lymphocytes % 77 % (10-50); Monocytes % 6 % (2-9); Neutrophils % 17 % (42-76); Total Cells Counted 100
[2022-12-08 07:27] LABS: Hypochromasia 1+; Macrocytosis 1+; Platelet Estimate Normal
--- NOTE | 2022-12-08 08:40 | P.PNANES_ITS ---
[facility] Anesthesia Record Part II Anesthesia Record Part II Discharge Time: 11:45 Destination: Medical Surgical Department PACU nurse assessment reviewed?: Yes Patient Condition:: Good Anesthesia Complications:: None Swallowing reflex intact?: Yes Airway Patency: Patent Cyanosis?: No Blood Pressure: 144/71 SaO2: 94 Respiratory Rate: 18 Pulse Rate: 69 Temperature: 98 F Mental Status: Alert & Oriented Pain level:: 1 Nausea and/or vomitting:: None Intake, IV Amount: 0 Hydration: Adequate
--- NOTE | 2022-12-08 10:47 | HMH.OTEV ---
OT Inpatient Evaluation Rehab OT IP Evaluation Start: 12/07/22 08:44 Freq: ONCE Status: Active Protocol: Document 12/08/22 10:38 [facility] (Rec: 12/08/22 10:46 [facility] [id number]) Rehab OT IP Assessment Subjective History Pt oriented x 3 on arrival. Pt admitted on 12/06/22 due to a fall at home with right hip pain. Pt required a Cephalomedullary nailing right proximal femur on 12/07/22. Pt has a past medical history of Cephalomedullary nailing right proximal femur. Pt claims prior to being in the hospital she lived at home alone. Pt claims she was independent with all ADLs and IADLs. She had recently sold her house with plans to move to [place]. Pt did not use a walker during ambulation. Pt also claims she still drives. Subjective I don't know if I can. Objective Patient Orientation Person,Place,Birthday Upper Extremity Gross ROM WFL Bed Mobility bed mobility-scooting,bed mobility - supine/sit Assist Level Maximum x 1 (75% assist) Transfer Training Sit/Stand Transfer Assist Level Minimal x 2 (25% assist) Chair Transfer Ability Minimal x 2 (25% assist) Chair Transfer Technique Sit to/from Ambulatory Chair Transfer Assistive Devices Rolling Walker Rehab OT IP prob,goals,plan Problems Date of Evaluation: 12/08/22 OT IP Problems Bed Mobility,Transfers,Balance ,Self care,Safety Rehab Potential Rehab Potential Good Equipment Needs Assistive Devices Rolling / Wheeled Walker Plan OT intervention Plan Bed Mobility,Transfers,Balance ,Self care,Safety,Therapeutic Exercise OT Plan Frequency BID Duration LOS Discharge Goals Bed Mobility Ability Assistance x1 Sit to Stand Chair Transfer Ability Minimal x 1 (25% assist) Chair Transfer Ability Minimal x 1 (25% assist) Chair Transfer Technique Sit to/from Ambulatory Chair Transfer Assistive Devices Rolling Walker Feeding Ability Assist with Tray Set Up Lower Body Dressing Ability Assistance X1 Upper Body Dressing Ability Assistance X1 Bathing Ability
--- NOTE | 2022-12-08 11:19 | HMH.PTEV ---
Physical Therapy Evaluation Rehab PT IP Evaluation Start: 12/07/22 08:44 Freq: ONCE Status: Active Protocol: Document 12/08/22 11:13 [facility] (Rec: 12/08/22 11:19 [facility] [id number]) Subjective/History History History 72 yowf adm to [facility] after ground level fall at home with resulting R hip fx, now S/P R femur IMN. She apparently was in the floor of her home for ~5 days after her fall before being found. She generally is independent with all mobility and ADLs without an AD, lives alone. She has PMH of HTN, HLD , and CLL. Subjective Subjective Pt c/o R LE pain this am. Appears somewhat confused, but unsure how much of this is baseline confusion per reports . New diagnosis of cancer in past 12 Yes months? Rehab PT IP Eval Objective Appearance Patient Behavior Appropriate Patient Orientation Person Difficulty following instructions mild Speech Pattern Clear Ambulation Patient Able to Ambulate Yes Ambulation Observation IP General Gait Pattern Observation Antalgic Gait,Shuffling Step, Decrease Weight Bear (R), Decrease Stride Lngth (R), Decrease Stride Lngth (L) Ambulation Distance (feet) 15 Ambulation Assistive Device Rolling Walker Ambulation Ability Minimal x 1 (25% assist) Balance Ability to Arise Unable Sitting Balance Steady, safe Standing Balance Steady, wide stance Dynamic Sitting Balance Ability Fair Dynamic Standing Balance Ability Fair Transfers Bed Transfer Ability Maximum x 1 (75% assist) Chair Transfer Ability Minimal x 2 (25% assist) Sit to Stand Bed Transfer Ability Minimal x 2 (25% assist) Sit to Stand Chair Transfer Ability Minimal x 2 (25% assist) Rehab PT IP prob,goals,plan Problems Date of Evaluation: 12/08/22 PT IP Problems Bed Mobility,Transfers,Gait Rehab Potential Rehab Potential Good Plan PT Intervention Plan Bed Mobility,Transfers,Gait, Self care,Therapeutic Exercise PT Plan Frequency BID Duration LOS Discharge Goals Bed Transfer Ability Moderate x 1 (50% assist) Sit to Stand Chair Transfer Ability Minimal x 1 (25% assist) Ambulation Assistive Device
--- NOTE | 2022-12-08 12:04 | EXP.ORTH.PN ---
Subjective *Date: 12/08/22 *Time: 12:04 Interval history: Patient sitting up in the chair. Reports that she feels some better. Has moderate amount of pain in her hip which is expected after surgery. Otherwise no complaints. Ortho Exam (Inpt) Vital signs and Labs for Last 24 Hours: Temp Pulse Resp BP Pulse Ox O2 Del Method 98.1 F 79 18 123/77 94 L Room Air 12/08/22 08:00 12/08/22 08:00 12/08/22 08:41 12/08/22 08:00 12/08/22 08:00 12/08/22 11:00 Laboratory Results - last 24 hr 12/07/22 09:43: Urine Color Yellow, Urine Appearance Clear, Urine pH 6.0, Ur Specific [place] 1.020, Urine Protein Negative, Urine Glucose (UA) Negative, Urine Ketones Negative, Urine Blood Negative, Urine Nitrate Negative, Urine Bilirubin Negative, Urine Urobilinogen 0.2, Ur Leukocyte Esterase Negative, Urine RBC None, Urine WBC None, Ur Squamous Epith Cells None, Urine Bacteria None 12/08/22 06:03: WBC 65.8 H*, RBC 3.76 L, Hgb 11.1 L, Hct 31.8 L, MCV 84.3, MCH 29.5, MCHC 34.9, RDW 13.9, Plt Count 294, MPV 7.8, Neut % (Auto) 15.0 L, Lymph % (Auto) 81.9 H, [place] % (Auto) 1.3 L, Eos % (Auto) 0.2, Baso % (Auto) 1.6, Neut # (Auto) 9.9 H, Lymph # (Auto) 53.9 H, [place] # (Auto) 0.9, Eos # (Auto) 0.1, Baso # (Auto) 1.0 H, Total Counted 100, Neutrophils % (Manual) 17 L, Lymphocytes % (Manual) 77 H, Monocytes % (Manual) 6, Differential Comment , Platelet Estimate Normal, Hypochromasia 1+, Macrocytosis 1+, Sodium 132 L, Potassium 4.5, Chloride 103, Carbon Dioxide 29, Anion Gap 4.5 L, BUN 17 D, Creatinine 0.50 L, Estimated Creat Clear 48, Estimated GFR 122, Est GFR ( Amer) 147 D, Glucose 102 H, Calcium 8.0 L, Magnesium 2.0, Total Bilirubin 0.7, AST 32, ALT 21, Alkaline Phosphatase 62, Total Protein 5.4 L, Albumin 3.0 L, Globulin 2.4, Albumin/Globulin Ratio 1.3 I & O for Labs for Last 24 Hours: Intake & Output 12/05/22 12/06/22 12/07/22 12/08/22 23:59 23:59 23:59 23:59 Intake Total 240 / 240 550 / 550 0 / 0 Output Total 550 / 550 300 / 300 Balance 240 / 240 0 / 0 -300 / -300 Weight 115 lb 120 lb 4.9 oz 130 lb 5 oz Additional findings:: Right hip: Surgical dressing in place. Compartments soft. Wiggles toes. Moves ankle and foot without difficulty. Grossly neurovascular intact. Assessment and Plan *Assessment and plan (1) Fracture, intertrochanteric, right femur: Problem Comment: Status post cephalomedullary nailing Status: Acute Qualifiers: Encounter type: initial encounter Fracture type: closed Fracture alignment: displaced Qualified Code(s): S72.141A - Displaced intertrochanteric fracture of right femur, initial encounter for closed fracture Category: Medical Code(s): S72.141A - Displaced intertrochanteric fracture of right femur, initial encounter for closed fracture Plan Patient doing as good as expected during the postoperative period. Continue with physical therapy. Patient would be a good candidate for rehabilitation at a retirement facility secondary to her living condition which is at home alone. Upon discharge patient will follow-up in the clinic 2 weeks for staple removal. Weightbearing as tolerated on rolling walker.
--- NOTE | 2022-12-08 14:10 | DIET.NUTRFU ---
Saw patient today to access nutritional status, she is at high risk for malnutrition based on current intake, skin breakdown and questionable weight loss. She seemed confused upon visit, not sure where baseline is. Was living alone, psychiatric social worker working on placement. seemed like she had a lack of motivation to cook for herself. To help with healing and meet nutritional needs will start ensure TID. She will need lots of encouragement she seems intent with drinking her coke at bedside. She could recall when last BM was, none noted here since admit, will continue to monitor. Full assessment completed with monitor meal intake
[2022-12-08 15:30] LABS: Peripheral Smear Review Scanned Result
--- NOTE | 2022-12-08 16:24 | PC.NURSE ---
pt has slept majority of shift. pt a&o x4 but has a hard time following commands and appears spaced out and confused at times. on initial assessment pt answered all questions correctly, when asked pt stated 51 this nurse asked if pts meant 51 and pt stated well it just depends on what my mother said . pt sat in chair for a few hrs, tolerated well. ivmf started due to pts poor oral intake. pt has ate less than 25% of meals this shift. pt will drink coke zero and has a candy bar at bs, pt has been eating. cb within reach waiting for placement.
--- NOTE | 2022-12-08 23:11 | EXP.PN ---
Subjective *Date: 12/09/22 *Time: 07:47 Interval history: Patient was seen and evaluated at the bedside. denies chest pain, shortness of breath, nausea, vomiting, abdominal pain. Patient does not have any complaints at this time. feels better overall Exam Data for Last 24 hours Vital signs and Labs for Last 24 Hours: Temp Pulse Resp BP Pulse Ox O2 Del Method 98.9 F 71 18 132/63 93 L Room Air 12/08/22 18:30 12/08/22 19:11 12/08/22 18:30 12/08/22 18:30 12/08/22 20:00 12/08/22 21:00 Laboratory Results - last 24 hr 12/08/22 06:03: WBC 65.8 H*, RBC 3.76 L, Hgb 11.1 L, Hct 31.8 L, MCV 84.3, MCH 29.5, MCHC 34.9, RDW 13.9, Plt Count 294, MPV 7.8, Neut % (Auto) 15.0 L, Lymph % (Auto) 81.9 H, [place] % (Auto) 1.3 L, Eos % (Auto) 0.2, Baso % (Auto) 1.6, Neut # (Auto) 9.9 H, Lymph # (Auto) 53.9 H, [place] # (Auto) 0.9, Eos # (Auto) 0.1, Baso # (Auto) 1.0 H, Total Counted 100, Neutrophils % (Manual) 17 L, Lymphocytes % (Manual) 77 H, Monocytes % (Manual) 6, Differential Comment , Platelet Estimate Normal, Hypochromasia 1+, Macrocytosis 1+, Sodium 132 L, Potassium 4.5, Chloride 103, Carbon Dioxide 29, Anion Gap 4.5 L, BUN 17 D, Creatinine 0.50 L, Estimated Creat Clear 48, Estimated GFR 122, Est GFR ( Amer) 147 D, Glucose 102 H, Calcium 8.0 L, Magnesium 2.0, Total Bilirubin 0.7, AST 32, ALT 21, Alkaline Phosphatase 62, Total Protein 5.4 L, Albumin 3.0 L, Globulin 2.4, Albumin/Globulin Ratio 1.3 I & O for Last 24 hours: Intake & Output 10/28/23 10/29/23 10/30/23 10/31/23 23:59 23:59 23:59 23:59 Intake Total 240 / 240 550 / 550 510 / 510 Output Total 550 / 550 301 / 301 Balance 240 / 240 0 / 0 209 / 209 Weight 52.163 kg 54.57 kg 59.109 kg Constitutional Constitutional: no acute distress *Routine HEENT Exam Head: Present normocephalic Eye: Present EOMI and PERRL ENT: Present mucous membranes moist *Routine Neck Exam Neck: Present supple; Absent lymphadenopathy *Routine Respiratory Exam Respiratory: Present CTA bilaterally *Routine Cardiovascular Exam Cardiovascular: Present RRR *Routine Abdominal Exam Abdominal: Present soft and normoactive bowel sounds; Absent tenderness *Routine Extremities Exam Extremities: Absent cyanosis, clubbing or edema *Routine Skin Exam Skin: Present warm; Absent rash *Routine Neurological Exam Neurological: Present alert and oriented X3 Assessment and Plan *Assessment and plan (1) Closed intertrochanteric fracture of right femur: Status: Acute Qualifiers: Encounter type: initial encounter Fracture alignment: nondisplaced Qualified Code(s): S72.144A - Nondisplaced intertrochanteric fracture of right femur, initial encounter for closed fracture Category: Medical Code(s): S72.141A - Displaced intertrochanteric fracture of right femur, initial encounter for closed fracture (2) HTN (hypertension): Status: Chronic Qualifiers: Hypertension type: primary hypertension Qualified Code(s): I10 - Essential (primary) hypertension Category: Medical Code(s): I10 - Essential (primary) hypertension (3) Hip pain: Status: Acute Qualifiers: Laterality: right Qualified Code(s): M25.551 - Pain in right hip Category: Medical Code(s): M25.559 - Pain in unspecified hip (4) Fracture, intertrochanteric, right femur: Problem Comment: Status post cephalomedullary nailing Status: Acute Qualifiers: Encounter type: initial encounter Fracture type: closed Fracture alignment: displaced Qualified Code(s): S72.141A - Displaced intertrochanteric fracture of right femur, initial encounter for closed fracture Category: Medical Code(s): S72.141A - Displaced intertrochanteric fracture of right femur, initial encounter for closed fracture (5) Leukemia: Status: Acute Qualifiers: Leukemia type: chronic, unspecified type Category: Medical Cod
[2022-12-09] VITALS (9 sets, daily range): BP systolic 130–164; BP diastolic 60–74; PULSE 64–87; RESP 16–18; TEMP 35.9–37.7; O2SAT 92–94; BMI 23.3
--- NOTE | 2022-12-09 01:20 | PC.NURSE ---
PATIENT HAS NOT VOIDED SICE 1700 WHEN F/C REMOVED. BLADDER SCANED X 1 (>198/> 106). ABDOMEN IS SOFT, NO SUPRAPUBIC TENDERNESS. NO BLADDER DISTENTION NOTED). WILL CONTINUE TO MONITOR.
--- NOTE | 2022-12-09 03:37 | PC.NURSE ---
RESTING IN BED. HOB UP 30 DEGREES. DSG TO R HIP C/DI. MEPILEX DRSG TO LEFT HIP C/D/I. NO C/O PAIN SINCE 2225.NORCO 5/325 MG APPEARS TO BE EFFECTIVE FOR PAIN CINTROL. HAS NOT VOIDED SINCE OCAMPO REMOVED.
[2022-12-09 06:13] LABS: Alanine Aminotransferase 19 U/L (12-78); Albumin Level 2.7 g/dl (3.5-5.0); Albumin/Globulin Ratio 1.1 (1.1-1.8); Alkaline Phosphatase 60 U/L (38-126); Anion Gap 8.7 mEq/L (5-15); Aspartate Amino Transferase 29 U/L (14-36); Bilirubin,Total 0.6 mg/dl (0.2-1.3); Blood Urea Nitrogen 11 mg/dl (7-17); Calcium 8.2 mg/dl (8.4-10.2); Carbon Dioxide 27 mmol/L (22.0-30.0); Chloride 101 mmol/L (98-107); Creatinine Clearance Estimated 47 mL/min (50-200); Estimated Glomerular Filt Rate 122 ml/min (>60); GFR (African American) 147 ML/MIN (>60); Globulin 2.4 g/dL (1.3-3.2); Glucose 115 mg/dl (74-100); Potassium 3.7 mmoL/L (3.5-5.1); Sodium 133 mmol/L (136-145); Total Protein,Serum 5.1 g/dl (6.3-8.2)
--- NOTE | 2022-12-09 10:27 | CT_ITS ---
FINAL REPORT CLINICAL HISTORY: AMS COMPARISON: None FINDINGS: Axial images of the head were obtained without contrast. Coronal reformatted images were also obtained. This study was performed with techniques to keep radiation doses as low as reasonably achievable (ALARA). Individualized dose reduction techniques using automated exposure control or adjustment of mA and/or kV according to the patient''s size were employed. There is generalized age-appropriate atrophy. Periventricular low-attenuation areas are seen consistent with mild chronic ischemic changes. There is no evidence of intracranial hemorrhage or mass. There is no evidence of acute infarct. There is no evidence of shift of the midline structures. No skull abnormality is seen on the bone window images. IMPRESSION: Atrophy and mild periventricular chronic ischemic changes. No acute intracranial abnormality identified. Reviewed, Interpreted and Dictated by Grant Lugo III, MD Transcribed by Mar Cerna Authenticated and [facility]
--- NOTE | 2022-12-09 11:45 | HMH.PTWOUND ---
Rehab Inpt Wound Evaluation Rehab IP Wound Evaluation Start: 12/06/22 17:07 Freq: ONCE Status: Active Protocol: Document 12/09/22 11:23 PHORNE (Rec: 12/09/22 11:44 PHORNE [id number]) Rehab PT Wound Assessment Subjective Subjective 72 yowf adm to [facility] after ground level fall at home with resulting R hip fx now S/P R femur IMN. She was found after laying in floor for ~ 5 days with resulting pressure injuries on the L LE at knee and hip. Wound Left Lateral Knee Wound Type Pressure Ulcer Is This a Chronic Wound No Wound Length (cm) 6.3 Wound Width (cm) 2.4 Wound Depth (cm) 0.1 Wound Bed Appearance Beefy Red,Yellow Percentage Granulated (%) 50 Percentage of Slough (%) 50 Wound Margins Description Well Defined Surrounding Tissue Appearance [place] Wound Drainage Description Serous Drainage Amount Small Primary Dressing Composite Comment polymem silver Wound Secondary Dressing Type Transparent Drape Comment tegaderm Wound Debridement Method Gauze Wound Debridement Amount of Tissue Minimal Removed Wound Debridement Result Necrotic Tissue Remains Dressing Change Patient Tolerance Tolerated Well Right Hip Wound Type Pressure Ulcer Is This a Chronic Wound No Wound Staging Stage II Query Text:Stage I - Unbroken, red skin, no blanching. Stage II - Skin broken, superficial skin loss involving epidermis alone or also dermis. Partial loss of skin layers. Stage III - Pressure area involves epidermis, dermis and subcutaneous tissue, full thickness skin loss. Stage IV - Pressure area involves epidermis, subcutaneous tissue, bone and other supportive tissue. Full thickness skin loss with extensive destruction of underlying tissue and structures. Wound Length (cm) 4.0 Wound Width (cm) 2.0 Wound Depth (cm) 0.1 Wound Bed Appearance [place] Wound Margins Description Well Defined Surrounding Tissue Appearance [place] Wound Drainage Description Serous Drainage Amount Scant Wound Topical Solution/Irrigant Saline Irrigant Primary Dressing Composite Comment bordered foam dressing.
--- NOTE | 2022-12-09 12:09 | P.PN_ITS ---
Subjective *Date: 12/09/22 *Time: 12:09 Interval history: Patient resting comfortably in bed. Upon waking no complaints. Normal amount of expected hip pain present. Ortho Exam (Inpt) Vital signs and Labs for Last 24 Hours: Temp Pulse Resp BP Pulse Ox O2 Del Method 97.5 F L 78 17 164/73 H 92 L Room Air 12/09/22 11:06 12/09/22 11:06 12/09/22 11:06 12/09/22 11:06 12/09/22 11:06 12/09/22 11:06 Laboratory Results - last 24 hr 12/09/22 05:36: Sodium 133 L, Potassium 3.7, Chloride 101, Carbon Dioxide 27, Anion Gap 8.7, BUN 11 D, Creatinine 0.50 L, Estimated Creat Clear 47, Estimated GFR 122, Est GFR ( Amer) 147, Glucose 115 H, Calcium 8.2 L, Total Bilirubin 0.6, AST 29, ALT 19, Alkaline Phosphatase 60, Total Protein 5.1 L, Albumin 2.7 L, Globulin 2.4, Albumin/Globulin Ratio 1.1 I & O for Labs for Last 24 Hours: Intake & Output 12/06/22 12/07/22 12/08/22 12/09/22 23:59 23:59 23:59 23:59 Intake Total 240 / 240 550 / 550 510 / 1438 2110 Output Total 550 / 550 301 / 301 0 / 0 Balance 240 / 240 0 / 0 209 / 1137 2110 Weight 115 lb 120 lb 4.9 oz 130 lb 5 oz 127 lb 1.6 oz Additional findings:: Right hip: Surgical dressing in place no saturation of the dressing. Compartments soft. Assessment and Plan *Assessment and plan (1) Fracture, intertrochanteric, right femur: Problem Comment: Status post cephalomedullary nailing Status: Acute Qualifiers: Encounter type: initial encounter Fracture type: closed Fracture alignment: displaced Qualified Code(s): S72.141A - Displaced intertrochanteric fracture of right femur, initial encounter for closed fracture Category: Medical Code(s): S72.141A - Displaced intertrochanteric fracture of right femur, initial encounter for closed fracture Plan Given home situation living by herself patient would best served with rehabilit ation placement. This is appropriate in her situation. She can be weightbearing as tolerated on the rolling walker. She will return to the clinic in 2 weeks after discharge for staple removal. Sterile dressing change prior to discharge.
--- NOTE | 2022-12-09 16:35 | EXP.PN ---
Subjective *Date: 12/09/22 *Time: 16:35 Interval history: Patient resting comfortably in bed. Upon waking no complaints. appears a little fatigued and drowsy, denied CP, SOB, N/V, holding conversations . Exam Data for Last 24 hours Vital signs and Labs for Last 24 Hours: Temp Pulse Resp BP Pulse Ox O2 Del Method 96.7 F L 85 17 132/65 94 L Room Air 12/09/22 15:09 12/09/22 15:09 12/09/22 15:12/09/22 15:12/09/22 15:09 12/09/22 15:09 Laboratory Results - last 24 hr 12/09/22 05:36: Sodium 133 L, Potassium 3.7, Chloride 101, Carbon Dioxide 27, Anion Gap 8.7, BUN 11 D, Creatinine 0.50 L, Estimated Creat Clear 47, Estimated GFR 122, Est GFR ( Amer) 147, Glucose 115 H, Calcium 8.2 L, Total Bilirubin 0.6, AST 29, ALT 19, Alkaline Phosphatase 60, Total Protein 5.1 L, Albumin 2.7 L, Globulin 2.4, Albumin/Globulin Ratio 1.1 I & O for Last 24 hours: Intake & Output 12/06/22 12/07/22 12/08/22 12/09/22 23:59 23:59 23:59 23:59 Intake Total 240 / 240 550 / 550 510 / 1438 2231 / 2231 Output Total 550 / 550 301 / 301 0 / 0 Balance 240 / 240 0 / 0 209 / 1137 2230 / 2231 Weight 52.163 kg 54.57 kg 59.109 kg 57.652 kg Constitutional Constitutional: no acute distress Comments: appears weak and frail *Routine HEENT Exam Head: Present normocephalic Eye: Present EOMI and PERRL ENT: Present mucous membranes moist *Routine Neck Exam Neck: Present supple; Absent lymphadenopathy *Routine Respiratory Exam Respiratory: Present CTA bilaterally *Routine Cardiovascular Exam Cardiovascular: Present RRR *Routine Abdominal Exam Abdominal: Present soft and normoactive bowel sounds; Absent tenderness *Routine Extremities Exam Extremities: Absent cyanosis, clubbing or edema *Routine Skin Exam Skin: Present warm; Absent rash *Routine Neurological Exam Neurological: Present alert and oriented X3 Assessment and Plan *Assessment and plan (1) Closed intertrochanteric fracture of right femur: Status: Acute Qualifiers: Encounter type: initial encounter Fracture alignment: nondisplaced Qualified Code(s): S72.144A - Nondisplaced intertrochanteric fracture of right femur, initial encounter for closed fracture Category: Medical Code(s): S72.141A - Displaced intertrochanteric fracture of right femur, initial encounter for closed fracture (2) HTN (hypertension): Status: Chronic Qualifiers: Hypertension type: primary hypertension Qualified Code(s): I10 - Essential (primary) hypertension Category: Medical Code(s): I10 - Essential (primary) hypertension (3) Hip pain: Status: Acute Qualifiers: Laterality: right Qualified Code(s): M25.551 - Pain in right hip Category: Medical Code(s): M25.559 - Pain in unspecified hip (4) Fracture, intertrochanteric, right femur: Problem Comment: Status post cephalomedullary nailing Status: Acute Qualifiers: Encounter type: initial encounter Fracture type: closed Fracture alignment: displaced Qualified Code(s): S72.141A - Displaced intertrochanteric fracture of right femur, initial encounter for closed fracture Category: Medical Code(s): S72.141A - Displaced intertrochanteric fracture of right femur, initial encounter for closed fracture (5) Leukemia: Status: Acute Qualifiers: Leukemia type: chronic, unspecified type Category: Medical Code(s): C95.90 - Leukemia, unspecified not having achieved remission (6) Hypothyroid: Status: Acute Qualifiers: Hypothyroidism type: acquired Qualified Code(s): E03.9 - Hypothyroidism, unspecified Category: Medical Code(s): E03.9 - Hypothyroidism, unspecified (7) Tobacco use disorder: Status: Acute Category: Medical Code(s): F17.200 - Nicotine dependence, unspecified, uncomplicated Plan Patient is a 72-year-old female who presented
--- NOTE | 2022-12-09 17:51 | PC.NURSE ---
pt has been up to chair majority of shit, pt alert to self and place. pt unable to give year and month. pt knows pt fell at home but cannot give as much detail as to when pt was admitted or even from yesterday. pt had a large bm this am in bsc. bed/chair alarm on for pt safety. pt has not c/o pain this shift, pt may grimace after transferring from bed to chair or when repositioning in chair but states not really needing pain meds. pt has done well so far physically. cb within reach.
[2022-12-10] VITALS (11 sets, daily range): BP systolic 127–150; BP diastolic 52–67; PULSE 61–97; RESP 16–18; TEMP 36.6–37.2; O2SAT 93–100; BMI 24.0
--- NOTE | 2022-12-10 04:11 | PC.NURSE ---
At the beginning of the shift pt was oriented to self and had moderate confusion, pt required reorientation to whereabouts and condition. Pt is alert and oriented x4 this morning @ 0400. Pt transfers with 2 assist at this time and seems to be in pain while doing so. Pt has complained of pain once this shift and otherwise offers no complaints.
[2022-12-10 06:38] LABS: Alanine Aminotransferase 19 U/L (12-78); Albumin Level 2.7 g/dl (3.5-5.0); Albumin/Globulin Ratio 1.1 (1.1-1.8); Alkaline Phosphatase 57 U/L (38-126); Anion Gap 7.1 mEq/L (5-15); Aspartate Amino Transferase 29 U/L (14-36); Bilirubin,Total 0.6 mg/dl (0.2-1.3); Blood Urea Nitrogen 8 mg/dl (7-17); Calcium 8.2 mg/dl (8.4-10.2); Carbon Dioxide 30 mmol/L (22.0-30.0); Chloride 101 mmol/L (98-107); Creatinine Clearance Estimated 48 mL/min (50-200); Estimated Glomerular Filt Rate 157 ml/min (>60); GFR (African American) 190 ML/MIN (>60); Globulin 2.4 g/dL (1.3-3.2); Glucose 98 mg/dl (74-100); Potassium 4.1 mmoL/L (3.5-5.1); Sodium 134 mmol/L (136-145); Total Protein,Serum 5.1 g/dl (6.3-8.2)
[2022-12-10 11:18] LABS: Ammonia 9 umol/L (9-30)
[2022-12-10 14:11] LABS: Microscopic, Urine URINE MICROSCOPIC (MICROSCOPIC)
[2022-12-10 15:03] LABS: Appearance,Urine CLEAR (Clear); Bilirubin,Urine Negative (Negative); Blood, Urine Negative (Negative); Color,Urine YELLOW (Yellow); Glucose,Urine (UA) Negative (Negative); Ketones,Urine Negative (Negative); Leukocyte Esterase,Urine Negative (Negative); Nitrate,Urine Negative (Negative); Protein,Urine Negative (Negative); Specific Gravity, Urine <= 1.005 (1.005-1.030); Urobilinogen,Urine 0.2 EU/dl (0.2)
--- NOTE | 2022-12-10 17:26 | EXP.PN ---
Subjective *Date: 12/10/22 *Time: 17:26 Interval history: Patient resting comfortably in bed. appears more confused today, seems waxing and wanning, delirium in hospital, denied CP, SOB, N/V, holding conversations . Exam Data for Last 24 hours Vital signs and Labs for Last 24 Hours: Temp Pulse Resp BP Pulse Ox O2 Del Method 98.9 F 78 17 127/52 L 98 Room Air 12/10/22 15:50 12/10/22 15:50 12/10/22 15:50 12/10/22 15:50 12/10/22 15:50 12/10/22 15:50 Laboratory Results - last 24 hr 12/10/22 05:29: Sodium 134 L, Potassium 4.1, Chloride 101, Carbon Dioxide 30, Anion Gap 7.1, BUN 8 D, Creatinine 0.40 L, Estimated Creat Clear 48, Estimated GFR 157, Est GFR ( Amer) 190 D, Glucose 98, Calcium 8.2 L, Total Bilirubin 0.6, AST 29, ALT 19, Alkaline Phosphatase 57, Total Protein 5.1 L, Albumin 2.7 L, Globulin 2.4, Albumin/Globulin Ratio 1.1 12/10/22 10:20: Ammonia 9 12/10/22 11:48: Urine Color Yellow, Urine Appearance Clear, Urine pH 6.0, Ur Specific [place] <= 1.005, Urine Protein Negative, Urine Glucose (UA) Negative, Urine Ketones Negative, Urine Blood Negative, Urine Nitrate Negative, Urine Bilirubin Negative, Urine Urobilinogen 0.2, Ur Leukocyte Esterase Negative, Urine RBC None, Urine WBC None, Ur Squamous Epith Cells None I & O for Last 24 hours: Intake & Output 12/07/22 12/08/22 12/09/22 12/10/22 23:59 23:59 23:59 23:59 Intake Total 550 / 550 510 / 1438 3157 / 3277 480 / 480 Output Total 550 / 550 301 / 301 0 / 0 252 / 252 Balance 0 / 0 209 / 1137 3157 / 3277 228 / 228 Weight 54.57 kg 59.109 kg 57.652 kg 59.148 kg Constitutional Constitutional: no acute distress Comments: appears weak and frail *Routine HEENT Exam Head: Present normocephalic Eye: Present EOMI and PERRL ENT: Present mucous membranes moist *Routine Neck Exam Neck: Present supple; Absent lymphadenopathy *Routine Respiratory Exam Respiratory: Present CTA bilaterally *Routine Cardiovascular Exam Cardiovascular: Present RRR *Routine Abdominal Exam Abdominal: Present soft and normoactive bowel sounds; Absent tenderness *Routine Extremities Exam Extremities: Absent cyanosis, clubbing or edema *Routine Skin Exam Skin: Present warm; Absent rash *Routine Neurological Exam Neurological: Present alert and oriented X3 Detailed Neurological Exam Comments: appears confused, and oriented to self and place only, not to time Assessment and Plan *Assessment and plan (1) Closed intertrochanteric fracture of right femur: Status: Acute Qualifiers: Encounter type: initial encounter Fracture alignment: nondisplaced Qualified Code(s): S72.144A - Nondisplaced intertrochanteric fracture of right femur, initial encounter for closed fracture Category: Medical Code(s): S72.141A - Displaced intertrochanteric fracture of right femur, initial encounter for closed fracture (2) HTN (hypertension): Status: Chronic Qualifiers: Hypertension type: primary hypertension Qualified Code(s): I10 - Essential (primary) hypertension Category: Medical Code(s): I10 - Essential (primary) hypertension (3) Hip pain: Status: Acute Qualifiers: Laterality: right Qualified Code(s): M25.551 - Pain in right hip Category: Medical Code(s): M25.559 - Pain in unspecified hip (4) Fracture, intertrochanteric, right femur: Problem Comment: Status post cephalomedullary nailing Status: Acute Qualifiers: Encounter type: initial encounter Fracture type: closed Fracture alignment: displaced Qualified Code(s): S72.141A - Displaced intertrochanteric fracture of right femur, initial encounter for closed fracture Category: Medical Code(s): S72.141A - Displaced intertrochanteric fracture of right femur, initial encounter for closed fracture (5) Leukemia: Status: Acute Qualifiers: Leukemia type: chronic, unspecified type Gianna
--- NOTE | 2022-12-10 18:28 | PC.NURSE ---
Pt has appeared to rest well this shift. she was up to the chair for a few hours this afternoon, but otherwise has rested in bed. lung sounds are clear throughout. bowel sounds are active in all quads. nad noted. pt is alert to self and place. pt states her birthday is [birth year]. per pt drivers license bday is [birth year].
[2022-12-11 04:00] VITALS: BP 148/68; PULSE 77; RESP 17; TEMP 36.6; O2SAT 94; BMI 23.2
--- NOTE | 2022-12-11 05:40 | PC.NURSE ---
Patient has not been able to sleep all night. Has been restless and picking at her dressing most of the night. RN has reinforced all dressings. Patient has been incontinent and continent through the night. Has been up tot the bedside. Remains a 2 assist to get up. Patient is alert to self and knows that she fell but is not alert to anything else. No other issue noted by nurse or patient
[2022-12-11 06:25] LABS: Anion Gap 8.9 mEq/L (5-15); Blood Urea Nitrogen 7 mg/dl (7-17); Calcium 8.4 mg/dl (8.4-10.2); Carbon Dioxide 29 mmol/L (22.0-30.0); Chloride 103 mmol/L (98-107); Creatinine Clearance Estimated 47 mL/min (50-200); Estimated Glomerular Filt Rate 157 ml/min (>60); GFR (African American) 190 ML/MIN (>60); Glucose 97 mg/dl (74-100); Potassium 3.9 mmoL/L (3.5-5.1); Sodium 137 mmol/L (136-145)
[2022-12-11 06:42] VITALS: PULSE 75; PULSE 76
[2022-12-11 06:58] LABS: Basophils # 0.4 K/mm3 (0-0.2); Basophils % 0.7 % (0.1-2.0); Eosinophils # 0.3 K/mm3 (0.0-0.4); Eosinophils % 0.6 % (0.1-12.0); Hematocrit 29.7 % (37.0-47.0); Lymphocytes # 50.7 K/mm3 (0.7-4.5); Lymphocytes % 85.1 % (10-50); Mean Corpuscular HGB Conc 33.8 g/dL (31.8-35.4); Mean Corpuscular Volume 85.8 fl (81-99); Mean Platelet Volume 8.2 fl (7.4-10.4); Monocytes # 0.8 K/mm3 (0.1-1.0); Monocytes % 1.4 % (1.7-9.3); Neutrophils # 7.3 K/mm3 (1.8-7.8); Platelet Count 378 K/mm3 (142-424); Red Blood Count 3.46 M/mm3 (4.20-5.40)
[2022-12-11 07:04] LABS: White Blood Count 59.6 K/mm3 (4.8-10.8)
[2022-12-11 07:05] LABS: Neutrophils % 12.3 % (37.0-80.0)
[2022-12-11 07:06] LABS: MANUAL DIFFERENTIAL MANUAL DIFFERENTIAL (MANUAL DIFF)
[2022-12-11 08:00] VITALS: BP 130/63; PULSE 85; RESP 16; TEMP 37; O2SAT 95
[2022-12-11 08:24] LABS: Lymphocytes % 77 % (10-50); Monocytes % 2 % (2-9); Neutrophils % 21 % (42-76); Platelet Estimate Normal; Total Cells Counted 100
[2022-12-11 08:25] LABS: RBC Morphology Normal
--- NOTE | 2022-12-11 08:58 | PC.NURSE ---
COURTESY TECH NOTE; ROUNDED ON PT 0815, PT DENIED NEED FOR DRINK, NEED TO REPOSITION IN BED, AND NEED FOR ASSISTANCE WITH RESTROOM. CALL LIGHT WITHIN REACH, NO FURTHER REQUESTS AT THIS TIME MELVI CHOWDARY
--- NOTE | 2022-12-11 10:36 | EXP.DC.SUM ---
General Admission date:: 12/06/22 Discharge date: 12/11/22 HPI HPI HPI: Ms. Ahumada is a 72-year-old female with history of hypertension, prediabetes, CLL (on no treatment), and hyperlipidemia. She was brought to the ER via EMS after being found on the floor at her home by her realtor. States she was walking on the floor in socks while taking her dog out approximately 5 days ago when she slipped and fell. Had onset of right hip pain. Has spent the past 5 days getting around her house on the floor and is skinned her knees and her left hip. Did not have the ability to get help as she lives by herself. Was found today by her realtor as she is in the process of selling her home. Denies any trauma to her head, loss of consciousness. Not on any blood thinners. No chest pain, shortness of breath, nausea or vomiting. She does smoke but has not had much to smoke, eat, or drink for the past 5 days. On evaluation she mentioned she has leukemia. Labs obtained in the ER along with imaging show intertrochanteric fracture of the right hip and leukocytosis of 80,000, lymphocyte predominant. Reviewed patient's chart in epic with [facility] [place]. -Patient last seen at in 2016 after suspected stroke. Had some narrowing of her [employer] vasculature but CT does not mention jessica stroke. At that time A1c was at 6.6, TSH normal, white cell count 12, remainder of labs unremarkable -Most recent labs obtained on November 13 at [place] with white cell count of 56,000. Last seen in the ER at [place] in 2016 prior to being transferred to for reason above. On September 16, 2021, diagnosis of CLL was entered in her chart in the [facility] system. -Has seen oncology in [place], not currently on any treatment. No plan for chemotherapy or radiation. Patient does not want anything other than vitamins or supplements to treat her current condition. Hospital Course Hospital Course Hospital Course: Patient was seen and evaluated at the bedside on the day of discharge. Patient is stable for discharge. Patient wishes to be discharged. All patient questions were answered and patient was given time to ask questions. Patient was discharged in stable condition. Patient is a 72-year-old female who presented to hospital for right hip pain, patient underwent inpatient surgery. Assessment Right hip pain Fall Closed intertrochanteric fracture of right femur Hypertension Hypothyroidism Hyperlipidemia Leukemia Tobacco use disorder Patient is much more alert and awake, patient is stable for discharge, patient agrees with the discharge plan Exam Data for Last 24 hours Vital signs and Labs for Last 24 Hours: Temp Pulse Resp BP Pulse Ox O2 Del Method 98.6 F 85 16 130/63 95 Room Air 12/11/22 08:00 12/11/22 08:00 12/11/22 08:00 12/11/22 08:00 12/11/22 08:00 12/11/22 09:00 Laboratory Results - last 24 hr 12/10/22 10:20: Ammonia 9 12/10/22 11:48: Urine Color Yellow, Urine Appearance Clear, Urine pH 6.0, Ur Specific [place] <= 1.005, Urine Protein Negative, Urine Glucose (UA) Negative, Urine Ketones Negative, Urine Blood Negative, Urine Nitrate Negative, Urine Bilirubin Negative, Urine Urobilinogen 0.2, Ur Leukocyte Esterase Negative, Urine RBC None, Urine WBC None, Ur Squamous Epith Cells None 12/11/22 05:26: WBC 59.6 H*, RBC 3.46 L, Hgb 10.0 L, Hct 29.7 L, MCV 85.8, MCH 29.0, MCHC 33.8, RDW 14.0, Plt Count 378 D, MPV 8.2, Neut % (Auto) 12.3 L, Lymph % (Auto) 85.1 H, [place] % (Auto) 1.4 L, Eos % (Auto) 0.6, Baso % (Auto) 0.7, Neut # (Auto) 7.3, Lymph # (Auto) 50.7 H, [place] # (Auto) 0.8, Eos # (Auto) 0.3, Baso # (Auto) 0.4 H, Total Counted 100, Neutrophils % (Manual) 21 L, Lymphocytes % (Manual) 77 H, Monocytes % (Manual) 2, Platelet Estimate Normal, RBC Morphology Normal, Sodium 137, Potassium 3.9, Chloride 103, Carbon Dioxide 29, Anion Gap 8.9, BUN 7, Creatinine 0.40 L, Estimated Creat Clear 47, Estimated GFR 157, Est GFR (
== END 2022-12-11 12:06 | DRG 481 ==
LOC: ER 13:00 → 2ND 14:04
PROVIDERS: Internal Medicine; Orthopaedic Surgery; Admitting Provider Internal Medicine Adolescent Medicine; Emergency Provider Emergency Medicine; Visit Provider Internal Medicine Adolescent Medicine
PROC: 0QS634Z Reposition Right Upper Femur with Internal Fixation Device, Percutaneous Approach (ICD-10-PCS; CPT 27245; principal; 2022-12-07 09:00)
DX: S72.141A Displaced intertrochanteric fracture of right femur, initial encounter for closed fracture (principal); C91.10 Chronic lymphocytic leukemia of B-cell type not having achieved remission; E11.9 Type 2 diabetes mellitus without complications; E78.5 Hyperlipidemia, unspecified; I10 Essential (primary) hypertension; E03.9 Hypothyroidism, unspecified; F17.200 Nicotine dependence, unspecified, uncomplicated; Z66 Do not resuscitate
CPT/HCPCS: 27245; 36415; 70450; 71045; 73502; 73562; 73700; 80048; 80053; 81001; 82140; 82306; 82550; 82962; 83036; 83605; 83615; 83735; 84443; 84550; 85007; 85025; 85610; 85730; 93005; 94640; 97110; 97116; 97163; 97166; 97530; 97535; 99285; C1713; C1769; C1776; J2405

== ENCOUNTER 2023-09-19 22:15 | Observation (INO) | payer MEDICARE, OTHER, SELFPAY ==
[2023-09-19 22:15] VITALS: BP 148/98; PULSE 86; RESP 22; TEMP 36.5; O2SAT 96; BMI 18.2
--- NOTE | 2023-09-19 22:16 | XR_ITS ---
PROCEDURE INFORMATION: Exam: XR Chest Exam date and time: 09/19/2023 10:18 PM Age: 73 years old Clinical indication: Cough; Additional info: Cough, copd TECHNIQUE: Imaging protocol: Radiologic exam of the chest. Views: 2 views. COMPARISON: CR XR CHEST PORTABLE 01/19/2023 5:24 PM FINDINGS: Lungs: Pulmonary vessels appear normal. Extensive patchy opacification right perihilar region. Linear atelectasis associated with the left hilum. Pleural spaces: Unremarkable. No pleural effusion. No pneumothorax. Heart/Mediastinum: Cardiac silhouette is normal. Bones/joints: Unremarkable. IMPRESSION: 1. Cardiac silhouette is normal. 2. Pulmonary vessels appear normal. 3. Extensive patchy opacification right perihilar region. Likely focal infiltrate. CT chest may be helpful to further delineate this finding. 4. Linear atelectasis associated with the left hilum.
--- NOTE | 2023-09-19 22:19 | [facility].EDCP ---
Discharge Plan Disposition Patient Disposition: Admitted Prescriptions Prescriptions: No Action hydrocodone-acetaminophen 5-325 mg tablet 1 tab PO Q6H 30 Days Qty: 90 0RF atorvastatin 40 mg Tablet 40 mg PO DAILY metformin 500 mg Tablet 500 mg PO DAILY amlodipine 10 mg Tablet 10 mg PO DAILY lisinopril 40 mg Tablet 40 mg PO DAILY ergocalciferol (vitamin D2) 1,250 mcg (50,000 unit) Capsule 1,250 mcg PO .2 TIMES A WEEK Referrals Follow up/Referrals: Provider,Referral, MD [Primary Care Provider] - See instructions Clinical Impressions Clinical Impression: Acute exacerbation of chronic obstructive pulmonary disease, Pneumonia, Elevated troponin Print Language Print Language: Fijian Discharge ED Provider: Андрей Gallegos HPI General Chief Complaint: Shortness of Breath/Dyspnea Stated Complaint: dyspnea Time Seen by Provider: 09/19/23 22:16 History of Present Illness HPI narrative: Patient is a 73-year-old female past medical history of COPD not on home oxygen who presents emergency department for evaluation of shortness of breath. Onset was acute, over the last 3 to 5 days, there is associated productive cough. Patient has a productive cough at baseline however this is much worse than normal. There is increased shortness of breath. No current chest pain. Due to persistent symptoms she presents here for continued evaluation. Related Data Home Medications ?Medication ?Instructions ?Recorded ?Confirmed amlodipine 10 mg tablet 10 mg PO DAILY 12/06/22 12/24/22 atorvastatin 40 mg tablet 40 mg PO DAILY 12/06/22 12/24/22 lisinopril 40 mg tablet 40 mg PO DAILY 12/06/22 12/24/22 metformin 500 mg tablet 500 mg PO DAILY 12/06/22 12/24/22 ergocalciferol (vitamin D2) 1,250 1,250 mcg PO .2 TIMES A WEEK 12/07/22 12/24/22 mcg (50,000 unit) capsule Previous Rx's ?Medication ?Instructions ?Recorded hydrocodone 5 mg-acetaminophen 325 1 tab PO Q6H pain 30 days #90 tabs 12/21/22 mg tablet Allergies Allergy/AdvReac Type Severity Reaction Status Date / Time No Known Allergies Allergy Verified 12/24/22 08:58 [facility] Disclaimer: The information contained in this section may have been updated after the patient was seen, as this information can be updated by other users. Medical History (Updated 09/19/23 @ 23:05 by Андрей Gallegos MD) Leukemia Diabetes HLD (hyperlipidemia) HTN (hypertension) Surgical History (Updated 01/10/23 @ 08:48 by Jerome Beverly DO) Status post-operative repair of hip fracture No pertinent past surgical history Family History Other No significant family history Social History Smoking Status: Current every day smoker alcohol intake: never substance use type: denies use current occupational status: other Travel in the last 8 weeks: None ROS Obtained: Yes Systems reviewed as appropriate & no additional complaints except as documented Physical Exam General General appearance: alert and in no apparent distress Head Head exam: atraumatic and normocephalic Eye Eye exam: Present PERRL and EOMI ENT ENT exam: Present mucous membranes moist Neck Neck exam: Present normal inspection Chest Chest inspection: Present normal inspection and symmetric chest wall rise Respiratory Respiratory exam: Present wheezes, accessory muscle use and prolonged expiratory phase; Absent respiratory distress Cardiovascular Cardiovascular exam: Present regular rate and normal rhythm Abdominal Exam Abdominal exam: Present soft; Absent tenderness Extremities Exam Extremities exam: Present normal inspection and other (No pitting edema) Neurological Exam Neurological exam: Present alert Psychiatric Psychiatric exam: Present normal affect Skin Skin exam: Present warm and dry HEART Score HEART Score HEART Score assessment performed?: Yes History (anamnesis): Slightly suspicious ECG: Non-specific disturbance Age: >65 years Risk factors: 1-2 risk factors Troponin: > 3x normal limit HEART Score: 6 Critical Care Critical Care Time Critical Care Time: Yes Attestation: On 09/19/23, the high probability of a clinically significant, sudden or life threatening deterioration of the following system(s) required my full and direct attention, intervention and personal management. The time I documented below is in addition to time spent performing reported procedures but includes the following listed in this critical care notation. Total Time Total Critical Care Time: 45 Medical Decision Making Merlin Inquiry Pt receiving controlled substance: No Vital Signs Vital Signs: 09/19/23 22:15 Temperature 97.7 F Temperature Source Oral Pulse Rate [Left Radial] 86 Respiratory Rate 22 Blood Pressure [Right Arm] 148/98 H Blood Pressure Mean [Right Arm] 114 Blood Pressure Source [Right Arm] Automatic Cuff Blood Pressure Position [Right Arm] Sitting 02 Sat by Pulse Oximetry 96 Oxygen Delivery Method Room Air Lab Data Labs: Lab Results 09/19/23 22:16: VBG pH 7.35, VBG pCO2 49.8, VBG pO2 38.8, VBG HCO3 26.6, VBG Total CO2 28.1 H, VBG O2 Saturation 71.6 H, VBG Base Excess 0.9, VBG Lactic Acid 1.3 09/19/23 22:25: WBC 36.0 H*, RBC 4.57, Hgb 12.5, Hct 39.5, MCV 86.3, MCH 27.4, MCHC 31.7 L, RDW 15.1, Plt Count 295, MPV 7.6, Neut % (Auto) 24.4 L, Lymph % (Auto) 71.2 H, [place] % (Auto) 1.5 L, Eos % (Auto) 1.7, Baso % (Auto) 1.1, Neut # (Auto) 8.8 H, Lymph # (Auto) 25.7 H, [place] # (Auto) 0.6, Eos # (Auto) 0.6 H, Baso # (Auto) 0.4 H, Sodium 135 L, Potassium 4.0, Chloride 105, Carbon Dioxide 28, Anion Gap 6.0, BUN 9, Creatinine 0.40 L, Estimated Creat Clear 44, Estimated GFR 157, Est GFR ( Amer) 190, Glucose 115 H, Calcium 8.5, Total Bilirubin 0.5, AST 24, ALT 12, Alkaline Phosphatase 98, Troponin I 0.15 H, Total Protein 6.0 L, Albumin 3.6, Globulin 2.4, Albumin/Globulin Ratio 1.5 09/19/23 22:25 09/19/23 22:25 Response Orders (Tests/Meds): ED MEDICATIONS Generic Name Dose Route Start Last Admin Trade Name Freq PRN Reason Stop Dose Admin Acetaminophen 650 mg 09/19/23 22:56 Acetaminophen 325mg Tab PO 10/19/23 22:55 Q4HP PRN Fever or Mild Pain (1-3) Albuterol/Ipratropium 3 ml 09/20/23 00:00 Ipratropium/Albuterol 3 Ml Neb IH 10/20/23 00:00 Q6RT MANAS Enoxaparin Sodium 40 mg 09/20/23 09:00 Enoxaparin 40mg/0.4ml Syringe SQ 10/20/23 08:59 DAILY MANAS Magnesium Sulfate 2 gm in 50 mls @ 50 mls/hr 09/19/23 22:24 09/19/23 22:53 Magnesium Sulfate 2gm/50ml Premix IV 09/19/23 23:23 50 mls/hr ONCE ONE Administration Ceftriaxone Sodium 1 gm/ 50 mls @ 100 mls/hr 09/19/23 22:43 Sodium Chloride IV 09/19/23 23:12 ONCE ONE Morphine Sulfate 2 mg 09/19/23 22:56 Morphine 2mg/Ml Syringe IV 10/19/23 22:55 Q2HP PRN Severe Pain (7-10) Nicotine 21 mg 09/19/23 22:56 Nicotine 21mg/24hr Patch TD 10/19/23 22:55 DAILYP PRN Nicotine Cravings Ondansetron HCl 4 mg 09/19/23 22:56 Ondansetron 4mg/2ml Vial IV 10/19/23 22:55 Q8HP PRN Nausea Pantoprazole Sodium 40 mg 09/20/23 09:00 Pantoprazole 40mg Tablet PO 10/20/23 08:59 DAILY MANAS Discontinued Medications Generic Name Dose Route Start Last Admin Trade Name Freq PRN Reason Stop Dose Admin Albuterol/Ipratropium 6 ml 09/19/23 22:18 Ipratropium/Albuterol 3 Ml Neb IH 09/19/23 22:19 ONCE ONE Azithromycin 500 mg/ Sodium 250 mls @ 250 mls/hr 09/19/23 22:17 09/19/23 22:37 Chloride IV 09/19/23 22:18 250 mls/hr ONCE ONE Administration ORDERS Category Date Time Status Cardiology Consult [Consult to Cardiology] [CONS] Cons 09/19/23 22:56 Active Routine Pulmonology Consult [Consult to Pulmonology] [CONS] Cons 09/19/23 22:56 Active Routine CXR 2 view (NOT portable) [XR chest 2V] Stat Exams 09/19/23 22:16 Taken CBC w/Auto Diff [Complete Blood Count Auto Diff] Stat Lab 09/19/23 22:25 Results CMP [Comprehensive Metabolic Panel] Stat Lab 09/19/23 22:25 Completed Complete Blood Count Auto Diff AMLAB Lab 09/20/23 06:00 Ordered Comprehensive Metabolic Panel AMLAB Lab 09/20/23 06:00 Ordered Magnesium AMLAB Lab 09/20/23 06:00 Ordered Trop I [Troponin I] Stat Lab 09/19/23 22:25 Completed Troponin I Q3H Lab 09/20/23 01:30 Ordered Troponin I Q3H Lab 09/20/23 04:30 Ordered VBG [Venous Blood Gas] Stat RT 09/19/23 22:16 Completed EKG Request [ECG Request] Stat Y 09/19/23 22:16 Ordered ECG Data Tracing #1: ECG Narrative: Independently interpreted by me rate is 87, rhythm is irregular, sinus with intermittent ventricular complexes, no ST elevation in anatomical contiguous leads, QTc 420. Tracing #2: ECG Narrative: Independently turbid by me rate is 106, rhythm is regular, axis is normal, no ST elevation in anatomical contiguous leads, QTc 401 MDM Narrative Medical Decision Narrative: In summary patient is a 73-year-old female past medical history described above who presents emergency department for evaluation of shortness cough in the setting of COPD. Patient is hemodynamically stable nontoxic-appearing upon arrival with diffuse expiratory phase wheezing and accessory muscle use upon arrival however no pending respiratory compromise. Patient likely has COPD exacerbation from virus however differential includes pneumonia, atypical ACS, among others. Workup will be conducted with hematologic labs, chest x-ray, EKG, troponin, VBG. Patient received single DuoNeb and methylprednisolone prehospital therefore interventions will be continued with 2 more DuoNebs, azithromycin, 2 g of magnesium sulfate. Initial workup reviewed by me, patient has white count of 36,000 however has chronic lymphocytic leukemia and is actually better compared to her baseline with terms of leukocytosis. No significant SHERIF or electrolyte abnormality. Chest x-ray informally interpreted by me, right middle lobe pneumonia, interstitial opacities. Patient will be broadened with ceftriaxone in addition to azithromycin for her pneumonia. Sepsis bolus fluids were considered but will be deferred given that she is not tachycardic and appears euvolemic upon my exam. Given pneumonia combined with patient age, comorbidities, respiratory status although she is not on oxygen she will benefit from admission to this institution. The case discussed with hospital medicine who admit the patient under service for continued evaluation at this time. After admission discussion patient's troponin came back 0.15, she is not currently having chest pain. Repeat EKG will be conducted. I suspect this is stress-induced myocardial injury.
[2023-09-19] MEDS: IPRATROPIUM/ALBUTEROL 3 ML NEB 6 ML IH (22:22)
--- NOTE | 2023-09-19 22:30 | ECG_ITS ---
APPROVED REPORT Exam: Resting ECG HR:87 bpm ECG Measurements Heart Rate 87 AXES GA 153 P 76 QRSd 89 QRS 64 QT 375 T 61 QTc 420 Conclusion SINUS RHYTHM WITH OCCASIONAL VENTRICULAR PREMATURE COMPLEXES WITH OCCASIONAL SUPRAVENTRICULAR PREMATURE COMPLEXES MINIMAL ST DEPRESSION [0.025+ mV ST DEPRESSION] BORDERLINE ECG Electronically signed by : RANCHO HAMILTON, 09/19/2023 23:29:01
[2023-09-19 22:31] LABS: Basophils # 0.4 K/mm3 (0-0.2); Basophils % 1.1 % (0.1-2.0); Eosinophils # 0.6 K/mm3 (0.0-0.4); Eosinophils % 1.7 % (0.1-12.0); Hematocrit 39.5 % (37.0-47.0); Hemoglobin 12.5 g/dL (12.2-16.2); Lymphocytes # 25.7 K/mm3 (0.7-4.5); Lymphocytes % 71.2 % (10-50); Mean Corpuscular HGB Conc 31.7 g/dL (31.8-35.4); Mean Corpuscular Hemoglobin 27.4 pg (27.0-31.2); Mean Corpuscular Volume 86.3 fl (81-99); Mean Platelet Volume 7.6 fl (7.4-10.4); Monocytes # 0.6 K/mm3 (0.1-1.0); Monocytes % 1.5 % (1.7-9.3); Neutrophils # 8.8 K/mm3 (1.8-7.8); Neutrophils % 24.4 % (37.0-80.0); Platelet Count 295 K/mm3 (142-424); Red Blood Count 4.57 M/mm3 (4.20-5.40); Red Cell Distribution Width 15.1 % (11.5-17.5)
[2023-09-19 22:36] LABS: Albumin Level 3.6 g/dl (3.5-5.0); Chloride 105 mmol/L (98-107); MANUAL DIFFERENTIAL MANUAL DIFFERENTIAL (MANUAL DIFF); Sodium 135 mmol/L (136-145)
[2023-09-19] MEDS: AZITHROMYCIN 500 MG in 0.9 % SODIUM CHLORIDE 250 ML 250 MG IV (22:37)
[2023-09-19 22:39] LABS: Alanine Aminotransferase 12 U/L (12-78); Albumin/Globulin Ratio 1.5 (1.1-1.8); Alkaline Phosphatase 98 U/L (38-126); Aspartate Amino Transferase 24 U/L (14-36); Bilirubin,Total 0.5 mg/dl (0.2-1.3); Blood Urea Nitrogen 9 mg/dl (7-17); Carbon Dioxide 28 mmol/L (22.0-30.0); Creatinine Clearance Estimated 44 mL/min (50-200); Estimated Glomerular Filt Rate 157 ml/min (>60); GFR (African American) 190 ML/MIN (>60); Globulin 2.4 g/dL (1.3-3.2)
[2023-09-19 22:40] VITALS: PULSE 85
[2023-09-19 22:40] LABS: Calcium 8.5 mg/dl (8.4-10.2); Glucose 115 mg/dl (74-100)
--- NOTE | 2023-09-19 22:46 | PC.NURSE ---
Will RT has green top for VBG. Dr Gallegos aware of pts hx of high WBCs, and WBC being 36 today. Pt given warm blanket at this time
[2023-09-19 22:48] LABS: Lactate Venous 1.3 mmol/L (0.4-2.0); VBG Base Excess 0.9 mmol/L (-2.4-2.3); VBG HCO3 26.6 mmol/L (23-30); VBG Oxygen Saturation 71.6 % (50-70); VBG PCO2 49.8 mmol/L (35-51); VBG PH 7.35 mmol/L (7.31-7.41); VBG PO2 38.8 mmol/L (28-40); VBG Total CO2 28.1 mmol/L (23-27)
[2023-09-19 22:51] LABS: Troponin I 0.15 ng/ml (0.00-0.034)
[2023-09-19] MEDS: MAGNESIUM SULFATE IN WATER 2 GM/50 ML PIGGYBACK IV (22:53)
--- NOTE | 2023-09-19 22:58 | EXP.HP ---
History of Present Illness *Admission Date: 09/19/23 *Reason for visit:: SOB *History of present illness: This is a 73-year-old female with PMHx of COPD, tobacco user, HTN, CLL, not on home oxygen who presents emergency department for evaluation of shortness of breath. Onset was acute, over the last 3 to 5 days, there is associated productive cough. Patient has a productive cough at baseline however this is much worse than normal. There is increased shortness of breath. No current chest pain. Due to persistent symptoms she presents here for continued evaluation. [facility] Disclaimer: The information contained in this section may have been updated after the patient was seen, as this information can be updated by other users. Medical History (Updated 09/20/23 @ 13:33 by BARBARA Liz) Leukemia Diabetes HLD (hyperlipidemia) HTN (hypertension) Surgical History Status post-operative repair of hip fracture No pertinent past surgical history Family History Other No significant family history Social History Smoking Status: Current every day smoker alcohol intake: never substance use type: denies use current occupational status: other Travel in the last 8 weeks: None Review of Systems Review of Systems Review of systems:: pertinent systems reviewed and negative unless documented below Meds Home Medications and Allergies Home Medications ?Medication ?Instructions ?Recorded ?Confirmed ?Type amlodipine 10 mg tablet 10 mg PO DAILY 12/06/22 09/20/23 History atorvastatin 40 mg tablet 40 mg PO HS 12/06/22 09/20/23 History lisinopril 40 mg tablet 40 mg PO DAILY 12/06/22 09/20/23 History albuterol sulfate 90 mcg/actuation 2 puff inhalation Q6H PRN 09/20/23 09/20/23 History aerosol inhaler Shortness Of Breath ascorbic acid (vitamin C) 500 mg 500 mg PO Q48H 09/20/23 09/20/23 History tablet aspirin 81 mg chewable tablet 81 mg PO DAILY 09/20/23 09/20/23 History ferrous sulfate 324 mg (65 mg 324 mg PO Q48H 09/20/23 09/20/23 History iron) tablet,delayed release fluticasone 250 mcg-salmeterol 50 1 inh inhalation BID 09/20/23 09/20/23 History mcg/dose blistr powdr for inhalation (Wixela Inhub) levothyroxine 125 mcg tablet 125 mcg PO DAILY 09/20/23 09/20/23 History (Synthroid) tiotropium bromide 1.25 2 puff inhalation DAILY 09/20/23 09/20/23 History mcg/actuation mist for inhalation (Spiriva Respimat) New Prescriptions to Start Prescriptions: Allergies Allergy/AdvReac Type Severity Reaction Status Date / Time Penicillins Allergy Verified 09/19/23 23:55 Exam Data for Last 24 hours Vital signs and Labs for Last 24 Hours: Temp Pulse Resp BP Pulse Ox O2 Del Method 97.7 F 86 22 148/98 H 96 Room Air 09/19/23 22:15 09/19/23 22:15 09/19/23 22:15 09/19/23 22:15 09/19/23 22:15 09/19/23 22:15 Laboratory Results - last 24 hr 09/19/23 22:16: VBG pH 7.35, VBG pCO2 49.8, VBG pO2 38.8, VBG HCO3 26.6, VBG Total CO2 28.1 H, VBG O2 Saturation 71.6 H, VBG Base Excess 0.9, VBG Lactic Acid 1.3 09/19/23 22:25: WBC 36.0 H*, RBC 4.57, Hgb 12.5, Hct 39.5, MCV 86.3, MCH 27.4, MCHC 31.7 L, RDW 15.1, Plt Count 295, MPV 7.6, Neut % (Auto) 24.4 L, Lymph % (Auto) 71.2 H, [place] % (Auto) 1.5 L, Eos % (Auto) 1.7, Baso % (Auto) 1.1, Neut # (Auto) 8.8 H, Lymph # (Auto) 25.7 H, [place] # (Auto) 0.6, Eos # (Auto) 0.6 H, Baso # (Auto) 0.4 H, Sodium 135 L, Potassium 4.0, Chloride 105, Carbon Dioxide 28, Anion Gap 6.0, BUN 9, Creatinine 0.40 L, Estimated Creat Clear 44, Estimated GFR 157, Est GFR ( Amer) 190, Glucose 115 H, Calcium 8.5, Total Bilirubin 0.5, AST 24, ALT 12, Alkaline Phosphatase 98, Troponin I 0.15 H, Total Protein 6.0 L, Albumin 3.6, Globulin 2.4, Albumin/Globulin Ratio 1.5 Temp Pulse Resp BP Pulse Ox O2 Del Method 97.9 F 72 16 149/80 H 95 Room Air 12/06/22 12:19 12/06/22 15:00 12/06/22 15:00 12/06/22 15:00 12/06/22 15:00 12/06/22 12:19 Laboratory Results - last 24 hr 12/06/22 12:29: Urine Color Yellow, Urine Appearance Clear, Urine pH 6.0, Ur Specific [place] 1.020, Urine Protein Negative, Urine Glucose (UA) Negative, Urine Ketones Trace, Urine Blood Negative, Urine Nitrate Negative, Urine Bilirubin Negative, Urine Urobilinogen 0.2, Ur Leukocyte Esterase Negative, Urine RBC None, Urine WBC Occasional, Ur Squamous Epith Cells Occasional, Urine Bacteria None 12/06/22 12:30: POC Glucose 103 12/06/22 13:25: WBC 80.8 H*, RBC 4.62, Hgb 13.7, Hct 39.1, MCV 84.5, MCH 29.6, MCHC 35.0, RDW 13.8, Plt Count 278, MPV 8.4, Neut % (Auto) 15.3 L, Lymph % (Auto) 83.4 H, [place] % (Auto) 1.2 L, Eos % (Auto) 0.1, Baso % (Auto) 4.0 H, Neut # (Auto) 12.3 H, Lymph # (Auto) 67.4 H, [place] # (Auto) 1.0, Eos # (Auto) 0.1, Baso # (Auto) 3.2 H, Total Counted 100, Neutrophils % (Manual) 19 L, Lymphocytes % (Manual) 78 H, Monocytes % (Manual) 3, Platelet Estimate Normal, RBC Morphology Normal, Sodium 136, Potassium 3.9, Chloride 101, Carbon Dioxide 29, Anion Gap 9.9, BUN 31 H, Creatinine 0.60, Estimated Creat Clear 42, Estimated GFR 99, Est GFR ( Amer) 119, Glucose 100, Lactate 1.1, Calcium 8.9, Total Bilirubin 1.3, AST 50 H, ALT 34, Alkaline Phosphatase 79, Total Creatine Kinase 290 H, Total Protein 6.7, Albumin 3.8, Globulin 2.9, Albumin/Globulin Ratio 1.3 I & O for Last 24 hours: Intake & Output 09/16/23 09/17/23 09/18/23 09/19/23 23:59 23:59 23:59 23:59 Weight 54.431 kg Intake & Output 12/03/22 12/04/22 12/05/22 12/06/22 23:59 23:59 23:59 23:59 Weight 52.163 kg Constitutional Constitutional: no acute distress, average body habitus, chronically ill appearing and disheveled *Routine HEENT Exam Head: Present normocephalic and atraumatic Eye: Present EOMI and PERRL ENT: Present mucous membranes moist *Routine Neck Exam Neck: Present supple; Absent lymphadenopathy Routine Chest/Breast/Axilla Exam Chest wall: Absent tenderness *Routine Respiratory Exam Respiratory: Present prolonged expiratory phase, wheezes and normal respiratory effort; Absent rhonchi or crackles *Routine Cardiovascular Exam Cardiovascular: Present RRR *Routine Abdominal Exam Abdominal: Present soft and normoactive bowel sounds; Absent tenderness *Routine Rectal Exam Rectal:: deferred *Routine Genitalia Exam Genitalia:: deferred *Routine Extremities Exam Extremities: Absent cyanosis, clubbing or edema Comments: Right leg shorter than left and externally rotated. Tender to palpation over right hip. Abrasions on bilateral knees and left hip *Routine Skin Exam Skin: Present warm; Absent rash Comments: Wounds as per extremity exam, abrasions bilaterally on knees and on left hip. *Routine Neurological Exam Neurological: Present alert, oriented X3 and moving all extremities; Absent altered mental status H&P: Result Imaging and Cardiology EKG: Status: image reviewed by me, Preliminary report and final report Chest x-ray: Status: image reviewed by me, Preliminary report and final report Assessment and Plan *Assessment and plan (1) Acute exacerbation of chronic obstructive pulmonary disease: Status: Acute Category: Medical Code(s): J44.1 - Chronic obstructive pulmonary disease with (acute) exacerbation (2) Pneumonia: Status: Acute Qualifiers: Laterality: right Lung location: middle lobe of lung Pneumonia type: due to unspecified organism Qualified Code(s): J18.9 - Pneumonia, unspecified organism Category: Medical Code(s): J18.9 - Pneumonia, unspecified organism (3) Elevated troponin: Status: Acute Category: Medical Code(s): R79.89 - Other specified abnormal findings of blood chemistry (4) Chronic lymphocytic leukemia: Status: Acute Category: Medical Code(s): C91.10 - Chronic lymphocytic leukemia of B-cell type not having achieved remission (5) HTN (hypertension): Status: Chronic Qualifiers: Hypertension type: primary hypertension Qualified Code(s): I10 - Essential (primary) hypertension Category: Medical Code(s): I10 - Essential (primary) hypertension Plan 73-year-old female with PMHx of COPD, tobacco user, HTN, CLL, not on home oxygen who presents emergency department for evaluation of shortness of breath. Onset was acute, over the last 3 to 5 days, there is associated productive cough. initial work up included CBC that showed leukocytosis of 36. however, is better or around baseline in the setting of CLL. troponin elevated. no chest pain or ST changes. Xray concern for right perihiliar pacthy opacity. patient started on IV ceftriaxone and zithro. ED requested admission. Findings discussed. Agreed for it. Plan as follow: -Acute on chronic hypercapnic respiratory failure. COPD exacerbation Right middle lobe opacity concerning for pneumonia. Elevated troponin. Likely higher oxygen demand CLL Admit patient for continuous monitoring. Dispo [facility] Cardiac and pulmonology consult X-ray reviewed. Concern for right opacity. CT ordered Trend troponin Monitor for chest pain. Rest of the vital signs per unit protocol Continue Rocephin 1 g IV every 24h and Zithromax 500 mg IV daily Sputum culture DuoNeb every 6h. Monitor O2 saturation oxygen as needed Monitor for daily CBC was watch leukocytosis Repeat labs in the morning -Other chronic conditions: Hypertension hyperlipidemia: Resume atorvastatin amlodipine and lisinopril Lovenox for DVT prophylaxis. Protonix for GI bleed prophylaxis Full code
[2023-09-19 23:04] LABS: Lymphocytes % 76 % (10-50); Monocytes % 3 % (2-9); Neutrophils % 21 % (42-76); Total Cells Counted 100
--- NOTE | 2023-09-19 23:04 | ECG_ITS ---
APPROVED REPORT Exam: Resting ECG HR:106 bpm ECG Measurements Heart Rate 106 AXES TX 153 P 81 QRSd 90 QRS 67 QT 339 T 67 QTc 401 Conclusion SINUS TACHYCARDIA ANTERIOR MYOCARDIAL INFARCTION , OF INDETERMINATE AGE [40+ ms Q WAVE AND/OR ST/T ABNORMALITY IN V3/V4] ABNORMAL ECG UNCONFIRMED REPORT Electronically signed by : PILLO WARD, 09/22/2023 06:56:44
[2023-09-19 23:16] LABS: Acanthocytes 2+
[2023-09-19 23:19] LABS: Ovalocytes 1+; Platelet Estimate Normal
[2023-09-19] MEDS: CEFTRIAXONE 1 GM 1 GM in 0.9 % SODIUM CHLORIDE 50 ML IV (23:34)
--- NOTE | 2023-09-19 23:56 | PC.NURSE ---
rounded on pt at this time. pt given warm blanket.
[2023-09-20] VITALS (15 sets, daily range): BP systolic 116–141; BP diastolic 69–96; PULSE 72–106; RESP 16–22; TEMP 36.3–36.8; O2SAT 92–98; BMI 17.0; BMI 18.3
--- NOTE | 2023-09-20 00:09 | PC.NURSE ---
Report called to YVONNE Aguilar at this time.
--- NOTE | 2023-09-20 00:23 | PC.NURSE ---
Patient arrived to floor via wheelchair from ED at 00:21.
--- NOTE | 2023-09-20 00:30 | PC.NURSE ---
Pt Pt unable to recall current medications and correct dosage. plans to call [facility] in am to bring them to her
[2023-09-20 01:58] LABS: Troponin I 1.34 ng/ml (0.00-0.034)
--- NOTE | 2023-09-20 02:04 | PC.NURSE ---
Lab notified this nurse of pt critical trop. 1.34, pt placed on tele at this time, EQ notified.
--- NOTE | 2023-09-20 03:51 | CT_ITS ---
PROCEDURE INFORMATION: Exam: CT Chest Without Contrast; Diagnostic Exam date and time: 09/20/2023 4:01 AM Age: 73 years old Clinical indication: Abnormal findings; Other: Right perihilar opacity TECHNIQUE: Imaging protocol: Diagnostic computed tomography of the chest without contrast. Radiation optimization: All CT scans at this facility use at least one of these dose optimization techniques: automated exposure control; mA and/or kV adjustment per patient size (includes targeted exams where dose is matched to clinical indication); or iterative reconstruction. COMPARISON: CR XR CHEST 2V 09/19/2023 10:18 PM FINDINGS: Lungs: Areas of focal consolidation are seen in the right middle lobe as well as the left upper lobe. The right middle lobe bronchus appears to be narrowed. Pleural spaces: Small right-sided pleural effusion is noted. Heart: Unremarkable. No cardiomegaly. No pericardial effusion. Coronary arteries: Coronary atherosclerosis is present. Lymph nodes: There is prominent mediastinal lymphadenopathy, precarinal lymph node measures 23 mm, right paratracheal lymph node 15 mm. Subcarinal lymph nodes 16 mm. Some calcified hilar lymph nodes are seen on the left. Vasculature: Unremarkable. No aortic aneurysm. Bones/joints: Unremarkable. No acute fracture. Soft tissues: Unremarkable. IMPRESSION: 1. There are bilateral areas of airspace opacity involving the right middle lobe and the medial left upper lobe. Both of these may be chronic in nature as there is evidence of bronchiectasis present. Consider follow-up examination in 3 months to demonstrate interval change, consider IV contrast at that time for further evaluation of the maik. 2. There is diffuse mediastinal lymphadenopathy present. Calcified left hilar lymph nodes consistent with chronic granulomatous disease is noted.
[2023-09-20 05:07] LABS: Basophils # 0.5 K/mm3 (0-0.2); Basophils % 1.1 % (0.1-2.0); Eosinophils % 0.1 % (0.1-12.0); Hematocrit 38.3 % (37.0-47.0); Hemoglobin 12.1 g/dL (12.2-16.2); Lymphocytes # 29.6 K/mm3 (0.7-4.5); Lymphocytes % 72.3 % (10-50); Mean Corpuscular HGB Conc 31.7 g/dL (31.8-35.4); Mean Corpuscular Hemoglobin 27.1 pg (27.0-31.2); Mean Corpuscular Volume 85.5 fl (81-99); Mean Platelet Volume 7.3 fl (7.4-10.4); Monocytes # 0.2 K/mm3 (0.1-1.0); Monocytes % 0.4 % (1.7-9.3); Neutrophils # 10.7 K/mm3 (1.8-7.8); Neutrophils % 26.1 % (37.0-80.0); Platelet Count 290 K/mm3 (142-424); Red Blood Count 4.48 M/mm3 (4.20-5.40); Red Cell Distribution Width 15.1 % (11.5-17.5)
[2023-09-20 05:11] LABS: Albumin Level 3.9 g/dl (3.5-5.0); Chloride 104 mmol/L (98-107); Potassium 4.7 mmoL/L (3.5-5.1); Sodium 134 mmol/L (136-145)
[2023-09-20 05:13] LABS: Blood Urea Nitrogen 11 mg/dl (7-17); Creatinine Clearance Estimated 44 mL/min (50-200); Estimated Glomerular Filt Rate 157 ml/min (>60); GFR (African American) 190 ML/MIN (>60)
[2023-09-20 05:14] LABS: Alanine Aminotransferase 23 U/L (12-78); Albumin/Globulin Ratio 1.5 (1.1-1.8); Alkaline Phosphatase 95 U/L (38-126); Anion Gap 6.7 mEq/L (5-15); Aspartate Amino Transferase 45 U/L (14-36); Bilirubin,Total 0.5 mg/dl (0.2-1.3); Calcium 8.9 mg/dl (8.4-10.2); Carbon Dioxide 28 mmol/L (22.0-30.0); Globulin 2.6 g/dL (1.3-3.2); Glucose 162 mg/dl (74-100); Magnesium 2.2 mg/dl (1.6-2.3); Total Protein,Serum 6.5 g/dl (6.3-8.2)
[2023-09-20 05:27] LABS: Troponin I 2.78 ng/ml (0.00-0.034)
--- NOTE | 2023-09-20 05:32 | PC.NURSE ---
EMILY MADRID and Dr. Maldonado notified of critical troponin 2.78 at this time. trending from 1.34. new orders obtained for lovenox 1mg per kg BID.
[2023-09-20] MEDS: ENOXAPARIN 60MG/0.6ML SYRINGE 55 MG SQ ×2 (05:52→18:32)
[2023-09-20 06:10] LABS: POC Glucose,Bedside 170 (70-110)
--- NOTE | 2023-09-20 06:12 | PC.NURSE ---
Pt is alert and oriented x4 and currently tolerating RA well @ 96%. Pt denies pain, has a persistent cough, and c/o SOA when ambulating to the BR. Troponin levels have trended upwards throughout this shift and are now at critical levels, hospitalist and archeologist classical are aware and orders implemented. Pt denies needs at this time.
[2023-09-20] MEDS: IPRATROPIUM/ALBUTEROL 3 ML NEB IH ×5 (06:26→23:26)
--- NOTE | 2023-09-20 09:51 | CARE MANAGER ---
[facility] is [facility]. [facility] do not have [facility] available for transfer.
--- NOTE | 2023-09-20 10:39 | PC.NURSE ---
spoke with pt's friend/person to notify at 0918 this am and he stated that [facility].
--- NOTE | 2023-09-20 10:48 | CA_ITS ---
APPROVED REPORT EXAM: Comprehensive 2D, Doppler, and color-flow Echocardiogram Engineer Third Assistant: Halle Wright RT(R) Ht: 5 ft 8 in Wt: 121lbs BSA: 1.65 BP: 148/98 mmHg Indications: NSTEMI, COPD, smoker, HTN, SOB, hyperlipidemia, CLL 2D Dimensions Left Atrium 3.19 cm F: 2.7 - 3.8 EF AP4 39.30 % GL Strain -6.3 % M-Mode Dimensions RVDd 2.47 cm (0.9-2.6) LVDd 4.89 cm (3.5-5.7) Ao Diam 2.83 cm (2.0-3.7) LVDs 3.57 cm (3.5-5.7) IVSd 0.86 cm (0.6-1.1) PWd 0.71 cm (0.6-1.1) EF (Teich) 52.50% FS 27.00% EDV (Teich) 112.30 mL ESV (Teich) 53.30 mL LV Diastology E Decel Time 150 (160-240 msec) E/A Ratio 0.8 MED E' 6.6 (>= 7 cm/sec) E'/MED E' Ratio 9.94 (<= 14) LAT E' 4.7 (>= 10 cm/sec) E/LAT E' Ratio 13.96 (<= 14) Aortic Valve LVOT Max 99.0 (70-110 cm/s) LVOT VTI 18.83 cm AoV Peak Trevor. 126.0 (50-130 cm/s) AO Mean GR. 3.20 (<5 mmHg) AO VTI 24.9 (18-25 cm) Mitral Valve MV E Max Trevor. 66.0 (40-130 cm/s) MV A Velocity 88.0 (40-130 cm/s) E/A Ratio 0.75 MV Decel. Time 150 (160-240 ms) Tricuspid Valve TR P. Velocity 272.00 cm/s RAP Estimate 10.00 mmHg RVSP 39.60 mmHg Left Ventricle The left ventricle is normal size. Left ventricular systolic function is moderate to severely decreased. There is increased LV wall thickness. Proximal septal thickening is noted. There is moderate to severe hypokinesis. The mid to distal septal, anteroseptal, and inferoseptal LV ornelas, as well as the LV apex, are akinetic. Grade 2 diastolic dysfunction. LVEF is 30%. Right Ventricle Right ventricle is mildly dilated. The right ventricular systolic function is normal. Atria Left atrium is mildly dilated. Right atrium is mildly dilated. There is no Doppler evidence of interatrial shunt. Aortic Valve The aortic valve is mildly thickened. There is no aortic valvular stenosis. Trace aortic regurgitation. Mitral Valve The mitral valve is normal in structure. No evidence of mitral valve stenosis. Trace mitral regurgitation. Tricuspid Valve The tricuspid valve leaflets are thin and pliable. Mild tricuspid regurgitation. RVSP is 25-30 mmHg. Pulmonic Valve The pulmonary valve is normal in structure. Trace pulmonic regurgitation. Great Vessels The aortic root is normal in size. The ascending aorta is not well visualized. IVC is normal in size and collapses >50% with inspiration. Pericardium Trivial, anterior pericardial effusion. No echo indications of tamponade. Other Information Study Quality: Fair Conclusion Moderate to severe reduction in LV systolic function (LVEF 30%). Mid to distal septal, anteroseptal, and inferoseptal LV ornelas, as well as the LV apex, are akinetic. Mild RV dilation with normal RV function. Mild biatrial dilation. Mild tricuspid regurgitation. RVSP is 25-30 mmHg. Trivial, anterior pericardial effusion. No echo indications of tamponade. Electronically signed by : Faby Negrete MD 09/20/2023 15:10:28
[2023-09-20] MEDS: predniSONE 20MG TAB 40 MG PO (10:54)
--- NOTE | 2023-09-20 11:20 | P.CONPHA_ITS ---
Pharmacy Intervention Comments: home medication list verified using list from [facility]
--- NOTE | 2023-09-20 13:26 | EXP.CARD.CON ---
History of Present Illness History of Present Illness Consult date: 09/20/23 Requesting physician: Candis Dunbar Consult reason: shortness of breath Chief complaint: SOA, CHF, NSTEMI Additional Medical History:: 1. Tobacco use A. COPD B. Chest CT, 09/20/2023, bilateral airspace opacity, RML and medial MOOSE. Diffuse mediastinal lymphadenopathy present. Coronary atherosclerosis noted. 2. Hypertension 3. Chronic lymphocytic leukemia 4. Non-STEMI, 09/19/2023 5. History of recent right hip fracture per patient 6. History of recent head trauma with questionable TIA/CVA, 09/[address], 12/2022, atrophy and mild periventricular chronic ischemic changes. No acute intracranial abnormality identified. History of present illness: This is a 73-year-old female with PMHx of COPD, tobacco user, HTN, CLL, not on home oxygen who presents emergency department for evaluation of shortness of breath. Onset was acute, over the last 3 to 5 days, there is associated productive cough. Patient has a productive cough at baseline however this is much worse than normal. There is increased shortness of breath. No current chest pain. Due to persistent symptoms she presents here for continued evaluation. The above per Davon Burgos APRN for the hospitalist service. Cardiology consulted due to elevated troponins. Patient denies any prior cardiac history but has had most of her care at the [facility]. She is somewhat of a poor historian but relates recent fall at home with right hip fracture and head trauma. Reportedly was treated at the [facility]. Echocardiogram is pending but preliminary review shows mild-moderately decreased ejection fraction. [facility] Disclaimer: The information contained in this section may have been updated after the patient was seen, as this information can be updated by other users. Medical History (Updated 09/20/23 @ 13:33 by BARBARA Liz) Leukemia Diabetes HLD (hyperlipidemia) HTN (hypertension) Surgical History Status post-operative repair of hip fracture No pertinent past surgical history Family History Other No significant family history Social History Smoking Status: Current every day smoker alcohol intake: never substance use type: denies use current occupational status: other Travel in the last 8 weeks: None Review of Systems Review of Systems Review of systems:: pertinent systems reviewed and negative unless documented below *Cardiovascular Cardiovascular: Denies chest pain and Reports dyspnea *Respiratory Respiratory: Reports cough and Reports dyspnea Exam Data for Last 24 hours Vital signs and Labs for Last 24 Hours: Temp Pulse Resp BP Pulse Ox O2 Del Method 98.0 F 80 22 116/69 95 Room Air 09/20/23 08:00 09/20/23 12:00 09/20/23 08:00 09/20/23 08:00 09/20/23 08:00 09/20/23 10:38 Laboratory Results - last 24 hr 09/19/23 22:16: VBG pH 7.35, VBG pCO2 49.8, VBG pO2 38.8, VBG HCO3 26.6, VBG Total CO2 28.1 H, VBG O2 Saturation 71.6 H, VBG Base Excess 0.9, VBG Lactic Acid 1.3 09/19/23 22:25: WBC 36.0 H*, RBC 4.57, Hgb 12.5, Hct 39.5, MCV 86.3, MCH 27.4, MCHC 31.7 L, RDW 15.1, Plt Count 295, MPV 7.6, Neut % (Auto) 24.4 L, Lymph % (Auto) 71.2 H, [place] % (Auto) 1.5 L, Eos % (Auto) 1.7, Baso % (Auto) 1.1, Neut # (Auto) 8.8 H, Lymph # (Auto) 25.7 H, [place] # (Auto) 0.6, Eos # (Auto) 0.6 H, Baso # (Auto) 0.4 H, Total Counted 100, Neutrophils % (Manual) 21 L, Lymphocytes % (Manual) 76 H, Monocytes % (Manual) 3, Platelet Estimate Normal, Ovalocytes 1+, Acanthocytes (Spur) 2+, Sodium 135 L, Potassium 4.0, Chloride 105, Carbon Dioxide 28, Anion Gap 6.0, BUN 9, Creatinine 0.40 L, Estimated Creat Clear 44, Estimated GFR 157, Est GFR ( Amer) 190, Glucose 115 H, Calcium 8.5, Total Bilirubin 0.5, AST 24, ALT 12, Alkaline Phosphatase 98, Troponin I 0.15 H, Total Protein 6.0 L, Albumin 3.6, Globulin 2.4, Albumin/Globulin Ratio 1.5 09/20/23 01:25: Troponin I 1.34 H 09/20/23 04:53: WBC 41.0 H*, RBC 4.48, Hgb 12.1 L, Hct 38.3, MCV 85.5, MCH 27.1, MCHC 31.7 L, RDW 15.1, Plt Count 290, MPV 7.3 L, Neut % (Auto) 26.1 L, Lymph % (Auto) 72.3 H, [place] % (Auto) 0.4 L, Eos % (Auto) 0.1, Baso % (Auto) 1.1, Neut # (Auto) 10.7 H, Lymph # (Auto) 29.6 H, [place] # (Auto) 0.2, Eos # (Auto) 0.0, Baso # (Auto) 0.5 H, Sodium 134 L, Potassium 4.7, Chloride 104, Carbon Dioxide 28, Anion Gap 6.7, BUN 11, Creatinine 0.40 L, Estimated Creat Clear 44, Estimated GFR 157, Est GFR ( Amer) 190, Glucose 162 H D, Calcium 8.9, Magnesium 2.2, Total Bilirubin 0.5, AST 45 H D, ALT 23 D, Alkaline Phosphatase 95, Troponin I 2.78 H, Total Protein 6.5, Albumin 3.9, Globulin 2.6, Albumin/Globulin Ratio 1.5 09/20/23 05:54: POC Glucose 170 H I & O for Last 24 hours: Intake & Output 09/18/23 09/19/23 09/20/23 09/21/23 11:59 11:59 11:59 11:59 Intake Total 240 / 240 Output Total 0 / 0 Balance 240 / 240 Weight 121 lb 6 oz Constitutional Constitutional: no acute distress *Routine Respiratory Exam Respiratory: Present decreased breath sounds; Absent rhonchi or wheezes *Routine Cardiovascular Exam Cardiovascular: Present RRR; Absent murmur, gallop or rubs *Routine Extremities Exam Extremities: Absent edema *Routine Neurological Exam Neurological: Present alert Meds Home Medications and Allergies Home Medications ?Medication ?Instructions ?Recorded ?Confirmed ?Type amlodipine 10 mg tablet 10 mg PO DAILY 12/06/22 09/20/23 History atorvastatin 40 mg tablet 40 mg PO HS 12/06/22 09/20/23 History lisinopril 40 mg tablet 40 mg PO DAILY 12/06/22 09/20/23 History albuterol sulfate 90 mcg/actuation 2 puff inhalation Q6H PRN 09/20/23 09/20/23 History aerosol inhaler Shortness Of Breath ascorbic acid (vitamin C) 500 mg 500 mg PO Q48H 09/20/23 09/20/23 History tablet aspirin 81 mg chewable tablet 81 mg PO DAILY 09/20/23 09/20/23 History ferrous sulfate 324 mg (65 mg 324 mg PO Q48H 09/20/23 09/20/23 History iron) tablet,delayed release fluticasone 250 mcg-salmeterol 50 1 inh inhalation BID 09/20/23 09/20/23 History mcg/dose blistr powdr for inhalation (Wixela Inhub) levothyroxine 125 mcg tablet 125 mcg PO DAILY 09/20/23 09/20/23 History (Synthroid) tiotropium bromide 1.25 2 puff inhalation DAILY 09/20/23 09/20/23 History mcg/actuation mist for inhalation (Spiriva Respimat) New Prescriptions to Start Prescriptions: Allergies Allergy/AdvReac Type Severity Reaction Status Date / Time Penicillins Allergy Verified 09/19/23 23:55 Assessment and Plan *Assessment and plan (1) NSTEMI (non-ST elevated myocardial infarction): Status: Acute Category: Medical Code(s): I21.4 - Non-ST elevation (NSTEMI) myocardial infarction (2) Pneumonia: Status: Acute Qualifiers: Laterality: right Lung location: middle lobe of lung Pneumonia type: due to unspecified organism Qualified Code(s): J18.9 - Pneumonia, unspecified organism Category: Medical Code(s): J18.9 - Pneumonia, unspecified organism (3) Chronic lymphocytic leukemia: Status: Acute Category: Medical Code(s): C91.10 - Chronic lymphocytic leukemia of B-cell type not having achieved remission (4) Tobacco use disorder: Status: Acute Category: Medical Code(s): F17.200 - Nicotine dependence, unspecified, uncomplicated (5) HFrEF (heart failure with reduced ejection fraction): Status: Acute Category: Medical Code(s): I50.20 - Unspecified systolic (congestive) heart failure (6) Coronary artery calcification seen on CAT scan: Status: Acute Category: Medical Code(s): I25.10 - Atherosclerotic heart disease of [place] coronary artery without angina pectoris Plan 1. Non-STEMI -Echo pending but preliminary shows reduced ejection fraction -Start aspirin and Plavix -Patient will need left heart catheterization 2. New diagnosis of HFrEF -Lasix and potassium started today -Start Entresto 3. Possible pneumonia -Antibiotics started 4. Chronic lymphocytic leukemia -White count 36-41K Begin DAPT and goal-directed medical therapy for HFrEF Plan left heart catheterization if able to perform here or transfer to [place] for further treatment
[2023-09-20] MEDS: FUROSEMIDE 40MG/4ML VIAL 40 MG IV (13:44)
[2023-09-20] MEDS: SACUBITRIL/VALSARTAN 24-26MG TABLET 1 EACH PO ×2 (13:44→20:22)
[2023-09-20] MEDS: POTASSIUM CHLORIDE 20MEQ TAB 20 MEQ PO ×2 (13:44→20:22)
--- NOTE | 2023-09-20 13:46 | HMH.OTEV ---
OT Inpatient Evaluation Rehab OT IP Evaluation Start: 09/20/23 11:58 Freq: ONCE Status: Active Protocol: Document 09/20/23 13:41 [facility] (Rec: 09/20/23 13:45 [facility] [id number]) Rehab OT IP Assessment Subjective History Pt oriented x 3 on arrival. Pt agreeable to engage in therapy evaluation. Pt admitted on 09/19/23 due to PNA . History and Physical: This is a 73-year-old female with PMHx of COPD, tobacco user, HTN, CLL, not on home oxygen who presents emergency department for evaluation of shortness of breath. Onset was acute, over the last 3 to 5 days, there is associated productive cough. Patient has a productive cough at baseline however this is much worse than normal. There is increased shortness of breath. No current chest pain. Due to persistent symptoms she presents here for continued evaluation. Subjective Prior to being in the hospital , pt lived at home alone. No steps to enter home. Pt is normally independent with all ADLs and simple IADLs. Pt does have a cleaning lady come in weekly to clean and do her laundry. Her laundry is in her basement, but she no longer goes up and down the stair. Normally she uses a rolling walker during functional transfers. She is able to cook simple meals and do light cleaning. Objective Patient Orientation Person,Place,Birthday Right Upper Extremity Gross ROM WFL Left Upper Extremity Gross ROM WFL Bed Mobility bed mobility-scooting,bed mobility - supine/sit Assist Level Supervision/Stand by Transfer Training Sit/Stand Transfer Assist Level Supervision/Stand by Chair Transfer Ability Supervision/Stand by Chair Transfer Technique Sit to/from Ambulatory Chair Transfer Assistive Devices Rolling Walker Lower Body Dressing Ability Standby Assistance Performing Toilet Hygiene Ability Standby Assistance Overall Commode/Toilet Transfer Ability Standby Assistance Commode/Toilet Transfer Technique Sit to/from Ambulatory Rehab OT IP prob,goals,plan Problems Date of Evaluation: 09/20/23 Rehab Potential Rehab Potential Innapropriate for Skilled Therapy Discharge Plan OT Discharge Plan Pt appears to be at baseline with functional transfers and ADL independence. Pt can return home once medically stable per physician. Therapist does recommend HH OT evaluation upon returning home as needed. Eval Complexity Eval Charge Codes 20400 - Low Complexity PHYSICIAN CERTIFICATION: I certify the specified therapy services for Zoey Charles Ahumada are required, authorized, and reviewed every 30 days.
--- NOTE | 2023-09-20 13:46 | HMH.PTEV ---
Physical Therapy Evaluation Rehab PT IP Evaluation Start: 09/20/23 11:58 Freq: ONCE Status: Active Protocol: Document 09/20/23 13:41 [facility] (Rec: 09/20/23 13:46 [facility] [id number]) Subjective/History History History Per H&P: This is a 73-year- old female with PMHx of COPD, tobacco user, HTN, CLL, not on home oxygen who presents emergency department for evaluation of shortness of breath. Onset was acute, over the last 3 to 5 days, there is associated productive cough . Patient has a productive cough at baseline however this is much worse than normal. There is increased shortness of breath. No current chest pain. Due to persistent symptoms she presents here for continued evaluation. Subjective Subjective PLOF Per pt report: Lives alone in single-level home with basement. No BOYD. Used RW and SPC for IND ambulation. Avoids the basement stairs. Pt has a rack cleaner who comes and does laundry. Denies recent falls. New diagnosis of cancer in past 12 No months? Rehab PT IP Eval Objective Appearance Patient Behavior Appropriate,Cooperative Patient Orientation Person,Place Difficulty following instructions none Speech Pattern Clear Ambulation Patient Able to Ambulate Yes Ambulation Observation IP General Gait Pattern Observation No Deviations/Normal Ambulation Distance (feet) 30 Ambulation Assistive Device Standard Walker Ambulation Ability Supervision/Stand by Balance Ability to Arise Able, uses arms to help Sitting Balance Steady, safe Standing Balance Steady, wide stance Transfers Bed Transfer Ability Supervision/Stand by Sit to Stand Bed Transfer Ability Supervision/Stand by Rehab PT IP prob,goals,plan Problems Date of Evaluation: 09/20/23 Rehab Potential Rehab Potential Innapropriate for Skilled Therapy Discharge Plan PT Discharge Plan Pt safe to d/c home when deemed medically necessary d/t current level of mobility and home set-up. Pt not appropriate for skilled acute care PT at this time d/t pt?s mobility being at baseline. Eval Complexity Eval Charge Codes 80297 - Moderate Complexity PHYSICIAN CERTIFICATION: I certify the specified therapy services for Zoey Ahumada are required, authorized, and reviewed every 30 days.
[2023-09-20 14:29] LABS: Hemoglobin A1C 5.8 % (4.0-6.0)
--- NOTE | 2023-09-20 15:25 | EXP.PN ---
Subjective *Date: 09/20/23 *Time: 15:44 Interval history: patient was seen and evaluated at the bedside. No reported acute events overnight, denies chest pain, shortness of breath, nausea, vomiting, abdominal pain. Exam Data for Last 24 hours Vital signs and Labs for Last 24 Hours: Temp Pulse Resp BP Pulse Ox O2 Del Method 98.0 F 80 22 116/69 95 Room Air 09/20/23 08:00 09/20/23 12:00 09/20/23 08:00 09/20/23 08:00 09/20/23 08:00 09/20/23 13:00 Laboratory Results - last 24 hr 09/19/23 22:16: VBG pH 7.35, VBG pCO2 49.8, VBG pO2 38.8, VBG HCO3 26.6, VBG Total CO2 28.1 H, VBG O2 Saturation 71.6 H, VBG Base Excess 0.9, VBG Lactic Acid 1.3 09/19/23 22:25: WBC 36.0 H*, RBC 4.57, Hgb 12.5, Hct 39.5, MCV 86.3, MCH 27.4, MCHC 31.7 L, RDW 15.1, Plt Count 295, MPV 7.6, Neut % (Auto) 24.4 L, Lymph % (Auto) 71.2 H, [place] % (Auto) 1.5 L, Eos % (Auto) 1.7, Baso % (Auto) 1.1, Neut # (Auto) 8.8 H, Lymph # (Auto) 25.7 H, [place] # (Auto) 0.6, Eos # (Auto) 0.6 H, Baso # (Auto) 0.4 H, Total Counted 100, Neutrophils % (Manual) 21 L, Lymphocytes % (Manual) 76 H, Monocytes % (Manual) 3, Platelet Estimate Normal, Ovalocytes 1+, Acanthocytes (Spur) 2+, Sodium 135 L, Potassium 4.0, Chloride 105, Carbon Dioxide 28, Anion Gap 6.0, BUN 9, Creatinine 0.40 L, Estimated Creat Clear 44, Estimated GFR 157, Est GFR ( Amer) 190, Glucose 115 H, Calcium 8.5, Total Bilirubin 0.5, AST 24, ALT 12, Alkaline Phosphatase 98, Troponin I 0.15 H, Total Protein 6.0 L, Albumin 3.6, Globulin 2.4, Albumin/Globulin Ratio 1.5 09/20/23 01:25: Troponin I 1.34 H 09/20/23 04:53: WBC 41.0 H*, RBC 4.48, Hgb 12.1 L, Hct 38.3, MCV 85.5, MCH 27.1, MCHC 31.7 L, RDW 15.1, Plt Count 290, MPV 7.3 L, Neut % (Auto) 26.1 L, Lymph % (Auto) 72.3 H, [place] % (Auto) 0.4 L, Eos % (Auto) 0.1, Baso % (Auto) 1.1, Neut # (Auto) 10.7 H, Lymph # (Auto) 29.6 H, [place] # (Auto) 0.2, Eos # (Auto) 0.0, Baso # (Auto) 0.5 H, Sodium 134 L, Potassium 4.7, Chloride 104, Carbon Dioxide 28, Anion Gap 6.7, BUN 11, Creatinine 0.40 L, Estimated Creat Clear 44, Estimated GFR 157, Est GFR ( Amer) 190, Glucose 162 H D, Calcium 8.9, Magnesium 2.2, Total Bilirubin 0.5, AST 45 H D, ALT 23 D, Alkaline Phosphatase 95, Troponin I 2.78 H, Total Protein 6.5, Albumin 3.9, Globulin 2.6, Albumin/Globulin Ratio 1.5 09/20/23 05:54: POC Glucose 170 H 09/20/23 13:55: Hemoglobin A1c 5.8, Troponin I 5.00 H I & O for Last 24 hours: Intake & Output 09/17/23 09/18/23 09/19/23 09/20/23 23:59 23:59 23:59 23:59 Intake Total 480 / 480 Output Total 0 / 0 Balance 480 / 480 Weight 54.431 kg 55.055 kg Constitutional Constitutional: no acute distress *Routine HEENT Exam Head: Present normocephalic Eye: Present EOMI and PERRL ENT: Present mucous membranes moist *Routine Neck Exam Neck: Present supple; Absent lymphadenopathy *Routine Respiratory Exam Respiratory: Present wheezes *Routine Cardiovascular Exam Cardiovascular: Present RRR *Routine Abdominal Exam Abdominal: Present soft and normoactive bowel sounds; Absent tenderness *Routine Extremities Exam Extremities: Absent cyanosis, clubbing or edema *Routine Skin Exam Skin: Present warm; Absent rash *Routine Neurological Exam Neurological: Present alert and oriented X3 Assessment and Plan *Assessment and plan (1) Acute exacerbation of chronic obstructive pulmonary disease: Status: Acute Category: Medical Code(s): J44.1 - Chronic obstructive pulmonary disease with (acute) exacerbation (2) Pneumonia: Status: Acute Qualifiers: Laterality: right Lung location: middle lobe of lung Pneumonia type: due to unspecified organism Qualified Code(s): J18.9 - Pneumonia, unspecified organism Category: Medical Code(s): J18.9 - Pneumonia, unspecified organism (3) Elevated troponin: Status: Acute Category: Medical Code(s): R79.89 - Other specified abnormal findings of blood chemistry (4) Chronic lymphocytic leukemia: Status: Acute Category: Medical Code(s): C91.10 - Chronic lymphocytic leukemia of B-cell type not having achieved remission (5) HTN (hypertension): Status: Chronic Qualifiers: Hypertension type: primary hypertension Qualified Code(s): I10 - Essential (primary) hypertension Category: Medical Code(s): I10 - Essential (primary) hypertension Plan 73-year-old female with PMHx of COPD, tobacco user, HTN, CLL, not on home oxygen who presents emergency department for evaluation of shortness of breath. Onset was acute, over the last 3 to 5 days, there is associated productive cough. initial work up included CBC that showed leukocytosis of 36. however, is better or around baseline in the setting of CLL. troponin elevated. no chest pain or ST changes. Xray concern for right perihiliar pacthy opacity. patient started on IV ceftriaxone and zithro. ED requested admission. Findings discussed. Agreed for it. Plan as follow: Acute on chronic hypercapnic respiratory failure COPD exacerbation Right middle lobe opacity concerning for pneumonia. Elevated troponin. Likely higher oxygen demand CLL NSTEMI Cardiac and pulmonology consulted Cardiology plans for [facility], patient is a [place] patien X-ray reviewed. Concern for right opacity. CT ordered - There are bilateral areas of airspace opacity involving the right middle lobe and the medial left upper lobe Trend troponin Continue Rocephin 1 g IV every 24h and Zithromax 500 mg IV daily Sputum culture DuoNeb every 6h, prednisone. Monitor O2 saturation oxygen as needed Monitor for daily CBC was watch leukocytosis -Other chronic conditions: Hypertension hyperlipidemia: Resume atorvastatin amlodipine and lisinopril Lovenox for DVT prophylaxis. Protonix for GI bleed prophylaxis Full code
--- NOTE | 2023-09-20 18:35 | PC.NURSE ---
Lung sounds remain wheezy this evening throughout bilateral lungs. VSS. Trops have trended up to 5.0 today and MD is aware. Remains alert and oriented with periods of confusion.
[2023-09-20] MEDS: CEFTRIAXONE 1 GM 1 GM in 0.9 % SODIUM CHLORIDE 50 ML IV (20:19)
[2023-09-20] MEDS: AZITHROMYCIN 500 MG in 0.9 % SODIUM CHLORIDE 250 ML 250 MG IV (20:22)
[2023-09-20] MEDS: ALBUTEROL-HFA 90MCG/PUFF INHALER 8GM 2 PUFF IH (22:50)
[2023-09-20] MEDS: METHYLPREDNISOLONE SOD SUCC 125MG VIAL 60 MG IV (23:43)
[2023-09-21] VITALS (8 sets, daily range): BP systolic 113–144; BP diastolic 65–84; PULSE 75–103; RESP 16–26; TEMP 36.4–36.9; O2SAT 90–94; BMI 16.9
[2023-09-21] MEDS: ONDANSETRON 4MG/2ML VIAL 4 MG IV (01:15)
[2023-09-21] MEDS: IPRATROPIUM/ALBUTEROL 3 ML NEB IH ×4 (01:16→13:10)
--- NOTE | 2023-09-21 01:36 | XR_ITS ---
PROCEDURE INFORMATION: Exam: XR Chest Exam date and time: 09/21/2023 1:40 AM Age: 73 years old Clinical indication: Shortness of breath; Additional info: SOB worsening TECHNIQUE: Imaging protocol: Radiologic exam of the chest. Views: 1 view. COMPARISON: CT CHEST WO CON 09/20/2023 4:01 AM FINDINGS: Lungs: Focal bilateral perihilar airspace disease appears unchanged when compared to recent CT. Pleural spaces: Unremarkable. No pleural effusion. No pneumothorax. Heart/Mediastinum: Unremarkable. No cardiomegaly. Bones/joints: Unremarkable. IMPRESSION: Focal bilateral perihilar airspace disease appears unchanged when compared to recent CT.
[2023-09-21] MEDS: FUROSEMIDE 40MG/4ML VIAL 40 MG IV (01:48)
--- NOTE | 2023-09-21 05:20 | PC.NURSE ---
Alert and oriented, intermittent confusion at times, easily reoriented. Uses bedside commode. Pt began to desat to 86%, placed on 2L NC, O2 sat >90%. Pt started to have audible wheezes and SOA, OPTICAL INSTRUMENT INSPECTOR notified, duonebs and solu-medrol administered. Patient continued, chest xray obtained and lasix ordered by EMILY Burgos. Pt now comfortable in room and rested. HR was in 100s at beginning of shift, now HR is in 80s. Patient states she is feeling better than she was and no longer complains of SOA. Lung sounds inspiratory/expiratory wheezing noted. Bed alarm on. Call light in reach.
[2023-09-21] MEDS: ENOXAPARIN 60MG/0.6ML SYRINGE 55 MG SQ (05:46)
[2023-09-21 07:17] LABS: Anion Gap 15.1 mEq/L (5-15); Blood Urea Nitrogen 17 mg/dl (7-17); Calcium 8.8 mg/dl (8.4-10.2); Carbon Dioxide 18 mmol/L (22.0-30.0); Chloride 104 mmol/L (98-107); Creatinine Clearance Estimated 41 mL/min (50-200); Estimated Glomerular Filt Rate 157 ml/min (>60); GFR (African American) 190 ML/MIN (>60); Glucose 168 mg/dl (74-100); Potassium 5.1 mmoL/L (3.5-5.1); Sodium 132 mmol/L (136-145)
[2023-09-21 07:41] LABS: Basophils # 0.4 K/mm3 (0-0.2); Eosinophils % 0.1 % (0.1-12.0); Hematocrit 37.9 % (37.0-47.0); Hemoglobin 12.8 g/dL (12.2-16.2); Lymphocytes # 24.8 K/mm3 (0.7-4.5); Lymphocytes % 64.8 % (10-50); Mean Corpuscular HGB Conc 33.7 g/dL (31.8-35.4); Mean Corpuscular Hemoglobin 30.8 pg (27.0-31.2); Mean Corpuscular Volume 91.3 fl (81-99); Mean Platelet Volume 8.7 fl (7.4-10.4); Monocytes # 0.3 K/mm3 (0.1-1.0); Monocytes % 0.7 % (1.7-9.3); Neutrophils # 12.8 K/mm3 (1.8-7.8); Neutrophils % 33.4 % (37.0-80.0); Platelet Count 263 K/mm3 (142-424); Red Blood Count 4.15 M/mm3 (4.20-5.40); Red Cell Distribution Width 15.1 % (11.5-17.5); White Blood Count 38.3 K/mm3 (4.8-10.8)
[2023-09-21 07:52] LABS: MANUAL DIFFERENTIAL MANUAL DIFFERENTIAL (MANUAL DIFF)
[2023-09-21 09:48] LABS: Lymphocytes % 67 % (10-50); Neutrophils % 33 % (42-76); Platelet Estimate Normal; RBC Morphology Normal; Total Cells Counted 100
[2023-09-21] MEDS: POTASSIUM CHLORIDE 20MEQ TAB 20 MEQ PO (10:11)
[2023-09-21] MEDS: DEXAMETHASONE 4MG/ML 1ML VIAL 6 MG IV (10:11)
[2023-09-21] MEDS: PANTOPRAZOLE 40MG TABLET 40 MG PO (10:11)
[2023-09-21] MEDS: SACUBITRIL/VALSARTAN 24-26MG TABLET 1 EACH PO (10:11)
--- NOTE | 2023-09-21 10:16 | P.PN_ITS ---
Subjective Subjective Date: 09/21/23 Time: 10:17 Principal diagnosis: Non-STEMI Interval history: 73-year-old white female in bed in no acute distress. Patient is reluctant to proceed with cardiac catheterization despite concerns for non-STEMI and reduced ejection fraction. There is some concern regarding the patient's mental status and ability to consent to any procedures. I discussed this with Dr. Wallis and he will contact her POA for further evaluation. Exam Data for Last 24 hours Vital signs and Labs for Last 24 Hours: Temp Pulse Resp BP Pulse Ox O2 Del Method O2 Flow Rate 98.1 F 80 26 H 129/78 94 L Room Air 2 09/21/23 08:00 09/21/23 09:20 09/21/23 08:00 09/21/23 08:00 09/21/23 09:20 09/21/23 09:20 09/21/23 05:00 Laboratory Results - last 24 hr 09/20/23 13:55: Hemoglobin A1c 5.8, Troponin I 5.00 H 09/21/23 05:57: WBC 38.3 H*, RBC 4.15 L, Hgb 12.8, Hct 37.9, MCV 91.3, MCH 30.8, MCHC 33.7, RDW 15.1, Plt Count 263, MPV 8.7, Neut % (Auto) 33.4 L, Lymph % (Auto) 64.8 H, [place] % (Auto) 0.7 L, Eos % (Auto) 0.1, Baso % (Auto) 1.0, Neut # (Auto) 12.8 H, Lymph # (Auto) 24.8 H, [place] # (Auto) 0.3, Eos # (Auto) 0.0, Baso # (Auto) 0.4 H, Total Counted 100, Neutrophils % (Manual) 33 L, Lymphocytes % (Manual) 67 H, Platelet Estimate Normal, RBC Morphology Normal, Sodium 132 L, Potassium 5.1, Chloride 104, Carbon Dioxide 18 L, Anion Gap 15.1 H, BUN 17 D, Creatinine 0.40 L, Estimated Creat Clear 41, Estimated GFR 157, Est GFR ( Amer) 190, Glucose 168 H, Calcium 8.8 I & O for Last 24 hours: Intake & Output 09/18/23 09/19/23 09/20/23 09/21/23 11:59 11:59 11:59 11:59 Intake Total 240 / 240 1310 / 1310 Output Total 0 / 0 500 / 500 Balance 240 / 240 810 / 810 Weight 121 lb 6 oz 111 lb 14.4 oz Microbiology Reports for the Last 24 Hours: Microbiology 09/20/23 08:26 Sputum - Expectorated Sputum Gram Stain - Final Constitutional Constitutional: no acute distress *Routine Respiratory Exam Respiratory: Present CTA bilaterally *Routine Cardiovascular Exam Cardiovascular: Present RRR *Routine Neurological Exam Neurological: Present alert and oriented X3 Progress Note: A&P Assessment and plan (1) Acute exacerbation of chronic obstructive pulmonary disease: Status: Acute (2) Pneumonia: Status: Acute (3) Elevated troponin: Status: Acute (4) Chronic lymphocytic leukemia: Status: Acute (5) HTN (hypertension): Status: Chronic Assessment and Plan Assessment and Plan for All Diagnoses:: 1. Non-STEMI -Echo EF 30% -Start aspirin and Plavix -Patient will need left heart catheterization but will hold for now due to concerns for mental status and ability to consent to any procedure. 2. New diagnosis of HFrEF -Start Lasix -Start Entresto and coreg 3. Possible pneumonia -Antibiotics started 4. Chronic lymphocytic leukemia -White count 36-41K Continue Entresto Begin Coreg Continue lasix and monitor renal status stop potassium Pt does not want any procedure at this time.
[2023-09-21 11:22] LABS: Troponin I 2.08 ng/ml (0.00-0.034)
--- NOTE | 2023-09-21 13:12 | EXP.DC.SUM ---
General Admission date:: 09/20/23 Discharge date: 09/21/23 HPI HPI HPI: This is a 73-year-old female with PMHx of COPD, tobacco user, HTN, CLL, not on home oxygen who presents emergency department for evaluation of shortness of breath. Onset was acute, over the last 3 to 5 days, there is associated productive cough. Patient has a productive cough at baseline however this is much worse than normal. There is increased shortness of breath. No current chest pain. Due to persistent symptoms she presents here for continued evaluation. Hospital Course Hospital Course Hospital Course: 73-year-old female with PMHx of COPD, tobacco user, HTN, CLL, not on home oxygen who presents emergency department for evaluation of shortness of breath. Onset was acute, over the last 3 to 5 days, there is associated productive cough. initial work up included CBC that showed leukocytosis of 36. however, is better or around baseline in the setting of CLL. troponin elevated. no chest pain or ST changes. Xray concern for right perihiliar pacthy opacity. patient started on IV ceftriaxone and azithromycin. ED requested admission. Patient did well and was weaned to room air. Tolerating antibiotics. Afebrile. No chest pain. Stable to discharge home with further management as an outpatient. Problems addressed as follows: Acute on chronic hypercapnic respiratory failure COPD exacerbation Right middle lobe opacity concerning for pneumonia. -Chest imaging showing concern for pneumonia. Symptoms consistent with COPD exacerbation. Initiated on empiric antibiotics and steroids with ceftriaxone, azithromycin, prednisone. Transition to oral cefdinir and azithromycin to complete 5-day course along with prednisone at discharge. Weaned to room air. Stable oxygen saturations above 90 for more than 24 hours prior to discharge. Non-STEMI New diagnosis heart failure with reduced ejection fraction -Likely supply/demand mismatch given the setting of COPD exacerbation/pneumonia. Echo obtained showing EF of 30%. Started on aspirin and Plavix. Cardiology consulted and evaluated patient. Recommended considering left heart cath. Patient not interested in pursuing any procedure at this time. Wants to think about it. Recommend close follow-up with cardiology and further evaluation as an outpatient. -Initiated on goal-directed therapy including Entresto and carvedilol. Will initiate Lasix for fluid management. Patient tolerating well with good blood pressure control. -Troponin peaked at 5, decreasing by day of discharge to 2. Patient asymptomatic and chest pain-free. CLL - White count 36-41K, around patient's baseline per chart review Total time spent on discharge 32 minutes in counseling, documentation, chart review, and direct care with patient. Exam Data for Last 24 hours Vital signs and Labs for Last 24 Hours: Temp Pulse Resp BP Pulse Ox O2 Del Method O2 Flow Rate 98.1 F 80 26 H 129/78 94 L Room Air 2 09/21/23 08:00 09/21/23 09:20 09/21/23 08:00 09/21/23 08:00 09/21/23 09:20 09/21/23 09:20 09/21/23 05:00 Laboratory Results - last 24 hr 09/20/23 13:55: Hemoglobin A1c 5.8, Troponin I 5.00 H 09/21/23 05:57: WBC 38.3 H*, RBC 4.15 L, Hgb 12.8, Hct 37.9, MCV 91.3, MCH 30.8, MCHC 33.7, RDW 15.1, Plt Count 263, MPV 8.7, Neut % (Auto) 33.4 L, Lymph % (Auto) 64.8 H, [place] % (Auto) 0.7 L, Eos % (Auto) 0.1, Baso % (Auto) 1.0, Neut # (Auto) 12.8 H, Lymph # (Auto) 24.8 H, [place] # (Auto) 0.3, Eos # (Auto) 0.0, Baso # (Auto) 0.4 H, Total Counted 100, Neutrophils % (Manual) 33 L, Lymphocytes % (Manual) 67 H, Platelet Estimate Normal, RBC Morphology Normal, Sodium 132 L, Potassium 5.1, Chloride 104, Carbon Dioxide 18 L, Anion Gap 15.1 H, BUN 17 D, Creatinine 0.40 L, Estimated Creat Clear 41, Estimated GFR 157, Est GFR ( Amer) 190, Glucose 168 H, Calcium 8.8 09/21/23 09:35: Troponin I 2.08 H I & O for Last 24 hours: Intake & Output 09/18/23 09/19/23 09/20/23 09/21/23 23:59 23:59 23:59 23:59 Intake Total 780 / 1280 770 / 770 Output Total 0 / 0 700 / 700 Balance 780 / 1280 70 / 70 Weight 54.431 kg 55.055 kg 50.757 kg Microbiology Reports for the Last 24 Hours: Microbiology 09/20/23 08:26 Sputum - Expectorated Sputum Gram Stain - Final Constitutional Constitutional: no acute distress, thin, chronically ill appearing and cooperative *Routine HEENT Exam Head: Present normocephalic Eye: Present EOMI and PERRL ENT: Present mucous membranes moist *Routine Neck Exam Neck: Present supple; Absent lymphadenopathy *Routine Respiratory Exam Respiratory: Present prolonged expiratory phase, rhonchi, wheezes and normal respiratory effort; Absent crackles *Routine Cardiovascular Exam Cardiovascular: Present RRR *Routine Abdominal Exam Abdominal: Present soft and normoactive bowel sounds; Absent tenderness *Routine Rectal Exam Patient deferred: visual exam *Routine Exam Patient deferred: external exam *Routine Extremities Exam Extremities: Absent cyanosis, clubbing or edema *Routine Skin Exam Skin: Present intact and warm; Absent rash *Routine Neurological Exam Neurological: Present alert, oriented X3 and moving all extremities; Absent altered mental status Comments: poor insight Results Data Completed and Pending Labs on day of discharge: Labs from last 24 hours 09/21/23 09/21/23 09/20/23 09:35 05:57 13:55 WBC 38.3 H* RBC 4.15 L Hgb 12.8 Hct 37.9 MCV 91.3 MCH 30.8 MCHC 33.7 RDW 15.1 Plt Count 263 MPV 8.7 Neut % (Auto) 33.4 L Lymph % (Auto) 64.8 H [place] % (Auto) 0.7 L Eos % (Auto) 0.1 Baso % (Auto) 1.0 Neut # (Auto) 12.8 H Lymph # (Auto) 24.8 H [place] # (Auto) 0.3 Eos # (Auto) 0.0 Baso # (Auto) 0.4 H Total Counted 100 Neutrophils % (Manual) 33 L Lymphocytes % (Manual) 67 H Platelet Estimate Normal RBC Morphology Normal Sodium 132 L Potassium 5.1 Chloride 104 Carbon Dioxide 18 L Anion Gap 15.1 H BUN 17 D Creatinine 0.40 L Estimated Creat Clear 41 Estimated GFR 157 Est GFR ( Amer) 190 Glucose 168 H Hemoglobin A1c 5.8 Calcium 8.8 Troponin I 2.08 H 5.00 H DS: Diagnosis Discharge Diagnosis (1) Acute exacerbation of chronic obstructive pulmonary disease: Status: Acute Code(s): J44.1 - Chronic obstructive pulmonary disease with (acute) exacerbation (2) Pneumonia: Status: Acute Code(s): J18.9 - Pneumonia, unspecified organism Qualifiers: Laterality: right Lung location: middle lobe of lung Pneumonia type: due to unspecified organism Qualified Code(s): J18.9 - Pneumonia, unspecified organism (3) Elevated troponin: Status: Acute Code(s): R79.89 - Other specified abnormal findings of blood chemistry (4) Chronic lymphocytic leukemia: Status: Acute Code(s): C91.10 - Chronic lymphocytic leukemia of B-cell type not having achieved remission (5) HTN (hypertension): Status: Chronic Code(s): I10 - Essential (primary) hypertension Qualifiers: Hypertension type: primary hypertension Qualified Code(s): I10 - Essential (primary) hypertension Meds Home Medications and Allergies Home Medications ?Medication ?Instructions ?Recorded ?Confirmed ?Type amlodipine 10 mg tablet 10 mg PO DAILY 12/06/22 09/20/23 History atorvastatin 40 mg tablet 40 mg PO HS 12/06/22 09/20/23 History albuterol sulfate 90 mcg/actuation 2 puff inhalation Q6H PRN 09/20/23 09/20/23 History aerosol inhaler Shortness Of Breath ascorbic acid (vitamin C) 500 mg 500 mg PO Q48H 09/20/23 09/20/23 History tablet aspirin 81 mg chewable tablet 81 mg PO DAILY 09/20/23 09/20/23 History ferrous sulfate 324 mg (65 mg 324 mg PO Q48H 09/20/23 09/20/23 History iron) tablet,delayed release fluticasone 250 mcg-salmeterol 50 1 inh inhalation BID 09/20/23 09/20/23 History mcg/dose blistr powdr for inhalation (Wixela Inhub) levothyroxine 125 mcg tablet 125 mcg PO DAILY 09/20/23 09/20/23 History (Synthroid) tiotropium bromide 1.25 2 puff inhalation DAILY 09/20/23 09/20/23 History mcg/actuation mist for inhalation (Spiriva Respimat) azithromycin 250 mg tablet 500 mg (2 x 250 mg) PO DAILY 2 09/21/23 Rx days #4 tabs carvedilol 3.125 mg tablet 3.125 mg PO BID 30 days #60 tabs 09/21/23 Rx cefdinir 300 mg capsule 300 mg PO BID 2 days #4 caps 09/21/23 Rx prednisone 20 mg tablet 40 mg (2 x 20 mg) PO DAILY 3 days 09/21/23 Rx #6 tabs sacubitril 24 mg-valsartan 26 mg 1 tab PO BID 30 days #60 tabs 09/21/23 Rx tablet (Entresto) New Prescriptions to Start Prescriptions: azithromycin Bimal,Eugenio carvedilol Bimal,Eugenio cefdinir Bimal,Eugenio prednisone Bimal,Eugenio sacubitril-valsartan [Entresto] Eugenio Wallis Allergies Allergy/AdvReac Type Severity Reaction Status Date / Time Penicillins Allergy Verified 09/19/23 23:55 Discharge Plan Disposition Patient Disposition: Home, Self-Care Condition: Fair Follow up Plan Follow up with: Alonso Druan PA [Physician Dog Food Shredder Operator] - 10/05/23 1:30 pm Janet Elliott APRN [Referring] - Enter time for follow up Prescriptions/Medication Reconciliation: New azithromycin 250 mg Tablet 500 mg PO DAILY 2 Days Qty: 4 0RF prednisone 20 mg Tablet 40 mg PO DAILY 3 Days Qty: 6 0RF cefdinir 300 mg Capsule 300 mg PO BID 2 Days Qty: 4 0RF carvedilol 3.125 mg Tablet 3.125 mg PO BID 30 Days Qty: 60 0RF Entresto 24-26 mg Tablet 1 tab PO BID 30 Days Qty: 60 0RF Continued atorvastatin 40 mg Tablet 40 mg PO HS amlodipine 10 mg Tablet 10 mg PO DAILY fluticasone propion-salmeterol [Wixela Inhub] 250-50 mcg/dose Blister With Device 1 inh INHALATION BID ascorbic acid (vitamin C) 500 mg Tablet 500 mg PO Q48H levothyroxine [Synthroid] 125 mcg Tablet 125 mcg PO DAILY aspirin 81 mg Tablet,Chewable 81 mg PO DAILY albuterol sulfate 90 mcg/actuation Hfa Aerosol Inhaler 2 puff INHALATION Q6H PRN (Reason: Shortness Of Breath) ferrous sulfate 324 mg (65 mg iron) Tablet,Delayed Release (Dr/Ec) 324 mg PO Q48H Spiriva Respimat 1.25 mcg/actuation Mist 2 puff INHALATION DAILY Discontinued lisinopril 40 mg Tablet 40 mg PO DAILY Problem Reconciliation Problems Reviewed?: Yes Patient Discharge Instructions ACTIVITY: Continue current activity DIET: continue same diet Patient Instructions: DI for Pneumonia -- Adult, DI for Shortness of Breath Print Language: Croatian Providers Primary Care Provider: Provider,Referral Admit Provider: Candis Dunbar Attending Provider: Candis Dunbar
[2023-09-21] MEDS: CEFDINIR 300MG CAPSULE 300 MG PO (13:39)
[2023-09-21] MEDS: CARVEDILOL 3.125MG TABLET 3.125 MG PO (13:39)
--- NOTE | 2023-09-22 14:12 | CARE MANAGER ---
Called and spoke with patient regarding recent discharge. She stated that she is struggling a little bit with SOA, but is using her inhaler and her nebulizers. Feels like she will get to feeling better once she gets some rest. Her medications [facility] delivered [facility] tomorrow.
== END 2023-09-21 17:55 | disposition home or self-care (01) ==
LOC: ER 23:05 → 2ND 09-20 00:01
PROVIDERS: Nurse Practitioner Family; Physician Assistant; Admitting Provider Internal Medicine; Emergency Provider Emergency Medicine; Visit Provider Internal Medicine
DX: J18.9 Pneumonia, unspecified organism (principal); J44.1 Chronic obstructive pulmonary disease with (acute) exacerbation; C91.10 Chronic lymphocytic leukemia of B-cell type not having achieved remission; I21.4 Non-ST elevation (NSTEMI) myocardial infarction; I50.20 Unspecified systolic (congestive) heart failure; I11.0 Hypertensive heart disease with heart failure; I25.10 Atherosclerotic heart disease of native coronary artery without angina pectoris; E11.9 Type 2 diabetes mellitus without complications; F17.210 Nicotine dependence, cigarettes, uncomplicated; J96.22 Acute and chronic respiratory failure with hypercapnia; Z79.899 Other long term (current) drug therapy
CPT/HCPCS: 36415; 71045; 71046; 71250; 80048; 80053; 82803; 82962; 83036; 83735; 84484; 85007; 85025; 85027; 87070; 87205; 93005; 93306; 94640; 94761; 97162; 97165; 99285; 99291; G0378; J0456; J0696; J1100; J1650; J1940; J2405; J2919; J3475; J7050; J7620

== ENCOUNTER 2024-03-23 22:36 | Emergency (ER) | payer OTHER, SELFPAY ==
[2024-03-23 22:36] VITALS: BP 134/77; PULSE 71; RESP 16; TEMP 37.2; O2SAT 95; BMI 18.2
[2024-03-23 22:40] VITALS: PULSE 70; O2SAT 94
--- NOTE | 2024-03-23 22:44 | PC.NURSE ---
Rounding complete. Patient has no needs at this time.
[2024-03-23 22:45] VITALS: PULSE 72; O2SAT 93
[2024-03-23 22:58] LABS: Microscopic, Urine URINE MICROSCOPIC (MICROSCOPIC)
--- NOTE | 2024-03-23 22:59 | XR_ITS ---
PROCEDURE INFORMATION: Exam: XR Chest Exam date and time: 03/23/2024 11:03 PM Age: 74 years old Clinical indication: Shortness of breath TECHNIQUE: Imaging protocol: Radiologic exam of the chest. Views: 2 views. COMPARISON: CR XR CHEST PORTABLE 09/21/2023 1:40 AM FINDINGS: Lungs: Right middle lobe infiltrate. Left suprahilar atelectasis. No significant change since 09/21/2023. Pleural spaces: Unremarkable. No pleural effusion. No pneumothorax. Heart/Mediastinum: Unremarkable. No cardiomegaly. Bones/joints: Unremarkable. IMPRESSION: Right middle lobe infiltrate. Left suprahilar atelectasis. No significant change since 09/21/2023.
[2024-03-23 23:00] VITALS: PULSE 105; O2SAT 95
[2024-03-23 23:04] LABS: Basophils # 0.1 K/mm3 (0-0.2); Basophils % 0.3 % (0.1-2.0); Eosinophils # 0.7 K/mm3 (0.0-0.4); Eosinophils % 1.4 % (0.1-12.0); Hematocrit 40.4 % (37.0-47.0); Hemoglobin 13.5 g/dL (12.2-16.2); Lymphocytes # 40.2 K/mm3 (0.7-4.5); Lymphocytes % 78.9 % (10-50); Mean Corpuscular HGB Conc 33.4 g/dL (31.8-35.4); Mean Corpuscular Hemoglobin 28.4 pg (27.0-31.2); Mean Corpuscular Volume 84.9 fl (81-99); Mean Platelet Volume 9.8 fl (7.4-10.4); Monocytes # 1.5 K/mm3 (0.1-1.0); Monocytes % 2.9 % (1.7-9.3); Neutrophils # 8.2 K/mm3 (1.8-7.8); Neutrophils % 16.1 % (37.0-80.0); Platelet Count 257 K/mm3 (142-424); Red Blood Count 4.76 M/mm3 (4.20-5.40); Red Cell Distribution Width 13.7 % (11.5-17.5)
--- NOTE | 2024-03-23 23:08 | PC.NURSE ---
Rounding complete; no needs at this time
[2024-03-23 23:10] LABS: Appearance,Urine CLEAR (Clear); Bilirubin,Urine Negative (Negative); Blood, Urine TRACE-L (Negative); Color,Urine YELLOW (Yellow); Glucose,Urine (UA) Negative (Negative); Ketones,Urine Negative (Negative); Leukocyte Esterase,Urine 1+ (Negative); Nitrate,Urine Negative (Negative); Protein,Urine Negative (Negative); Urobilinogen,Urine 0.2 EU/dl (0.2)
--- NOTE | 2024-03-23 23:10 | ECG_ITS ---
APPROVED REPORT Exam: Resting ECG HR:65 bpm ECG Measurements Heart Rate 65 AXES MA 122 P 48 QRSd 94 QRS 46 QT 405 T 62 QTc 416 Conclusion SINUS RHYTHM NORMAL ECG Electronically signed by : LORETTA NOBLE, 03/24/2024 05:56:59
[2024-03-23 23:11] LABS: White Blood Count 50.9 K/mm3 (4.8-10.8)
--- NOTE | 2024-03-23 23:11 | CT_ITS ---
PROCEDURE INFORMATION: Exam: CTA Chest With Contrast Exam date and time: 03/23/2024 11:44 PM Age: 74 years old Clinical indication: Cough and shortness of breath; Additional info: Cough SOA wbc 50.9 TECHNIQUE: Imaging protocol: Computed tomographic angiography of the chest with contrast. Exam focused on the arteries. 3D rendering (Not supervised by radiologist): MIP and/or 3D reconstructed images were created by the technologist. Radiation optimization: All CT scans at this facility use at least one of these dose optimization techniques: automated exposure control; mA and/or kV adjustment per patient size (includes targeted exams where dose is matched to clinical indication); or iterative reconstruction. Contrast material: ISOVUE; Contrast volume: 80 ml; Contrast route: INTRAVENOUS (IV); COMPARISON: CT CHEST WO CON 09/20/2023 4:01 AM FINDINGS: Pulmonary arteries: No acute pulmonary emboli. Aorta: Unremarkable. No aortic aneurysm. No aortic dissection. Lungs: Moderate bilateral upper and lower lobe bronchial wall thickening, compatible with reactive airways disease or bronchitis. Scarring and associated localized bronchiectasis within the medial left upper lobe and within the posterior right middle lobe. Pleural spaces: Unremarkable. No pneumothorax. No pleural effusion. Heart: Unremarkable. No cardiomegaly. No pericardial effusion. Coronary arteries: Moderate three-vessel coronary artery atherosclerotic calcification. Lymph nodes: Calcified left hilar lymph nodes, compatible with prior granulomatous disease. Multiple enlarged lymph nodes throughout the mediastinum and axillary regions bilaterally, with the largest in the precarinal region measuring approximately 16 mm in short axis diameter, similar to comparison study. Spleen: Splenomegaly. Adrenal glands: 13 mm left adrenal nodule, likely benign, but not definitively characterized on this study. Bones/joints: Multilevel thoracic spine degenerative disc space narrowing and osteophyte formation. Soft tissues: Unremarkable. IMPRESSION: 1. No acute pulmonary emboli. 2. Moderate bilateral upper and lower lobe bronchial wall thickening, compatible with reactive airways disease or bronchitis. 3. 13 mm left adrenal nodule, likely benign, but not definitively characterized on this study. 4. Multiple enlarged lymph nodes throughout the mediastinum and axillary regions bilaterally, with the largest in the precarinal region measuring approximately 16 mm in short axis diameter, similar to comparison study.
--- NOTE | 2024-03-23 23:11 | PC.NURSE ---
WBC 50.[address] Monae [id number]
[2024-03-23 23:12] LABS: MANUAL DIFFERENTIAL MANUAL DIFFERENTIAL (MANUAL DIFF)
[2024-03-23 23:13] LABS: Chloride 100 mmol/L (98-107)
[2024-03-23 23:14] LABS: Potassium 4.5 mmoL/L (3.5-5.1); Sodium 134 mmol/L (136-145)
[2024-03-23 23:16] LABS: Alanine Aminotransferase 15 U/L (12-78); Anion Gap 11.5 mEq/L (5-15); Aspartate Amino Transferase 31 U/L (14-36); Blood Urea Nitrogen 9 mg/dl (7-17); Carbon Dioxide 27 mmol/L (22.0-30.0); Creatinine Clearance Estimated 43 mL/min (50-200); Estimated Glomerular Filt Rate 98 ml/min (>60); GFR (African American) 119 ML/MIN (>60)
[2024-03-23 23:16] LABS: Coronavirus 19, PCR Not Detected (NotDetected); Influenza A, PCR Not Detected (NotDetected); Influenza B, PCR Not Detected (NotDetected)
[2024-03-23 23:17] LABS: Albumin/Globulin Ratio 1.7 (1.1-1.8); Alkaline Phosphatase 84 U/L (38-126); Bilirubin,Total 0.5 mg/dl (0.2-1.3); Calcium 8.9 mg/dl (8.4-10.2); Globulin 2.4 g/dL (1.3-3.2); Glucose 110 mg/dl (74-100); Total Protein,Serum 6.4 g/dl (6.3-8.2)
[2024-03-23 23:29] LABS: D-Dimer 0.86 ug/mL (0.0-0.5); Troponin I < 0.01 ng/ml (0.00-0.034)
[2024-03-23 23:30] VITALS: BP 116/68; PULSE 66; O2SAT 94
[2024-03-23] MEDS: VANCOMYCIN CONSULT REQUEST 1 EACH NOTAPPLIC (23:34)
--- NOTE | 2024-03-23 23:35 | PC.NURSE ---
Rounding complete; no needs at this time
[2024-03-23 23:37] LABS: Bacteria,Urine 1+ /lpf; RBC,Urine Occasional #/hpf (0-3)
[2024-03-23 23:45] LABS: Eosinophils % 2 % (0-3); Monocytes % 1 % (2-9); Neutrophils % 13 % (42-76); Ovalocytes 1+; Platelet Estimate Normal; Poikilocytosis 1+; Total Cells Counted 100
[2024-03-23 23:47] LABS: Burr Cells 1+
[2024-03-23 23:49] LABS: Lymphocytes % 84 % (10-50)
[2024-03-23] MEDS: SODIUM CHLORIDE 0.9% 10ML SYR (RAD ONLY) 10 ML IV (23:52)
[2024-03-23] MEDS: 0.9 % SODIUM CHLORIDE 50 ML VIAL IV (23:52)
[2024-03-23] MEDS: IOPAMIDOL-370 (76%);100ML BOTTLE 80 ML IV (23:52)
[2024-03-24] MEDS: LACTATED RINGERS 1000ML 1,500 ML 999 ML IV (00:10)
[2024-03-24] MEDS: PIPERACILLIN/TAZO 4.5 GM in 0.9 % SODIUM CHLORIDE 100 ML IV (00:10)
[2024-03-24] MEDS: IPRATROPIUM/ALBUTEROL 3 ML NEB 9 ML IH (00:15)
[2024-03-24 00:16] VITALS: BP 120/73; PULSE 64; O2SAT 95
[2024-03-24 00:33] VITALS: PULSE 70; PULSE 74
--- NOTE | 2024-03-24 00:35 | PC.NURSE ---
YVONNE Victoria obtained VBG on pt, CamillaRT walking it to lab at this time.
[2024-03-24 00:39] LABS: Lactate Venous 1.2 mmol/L (0.4-2.0); VBG Base Excess 1.5 mmol/L (-2.4-2.3); VBG HCO3 26.6 mmol/L (23-30); VBG Oxygen Saturation 75.1 % (50-70); VBG PH 7.38 mmol/L (7.31-7.41); VBG PO2 39.3 mmol/L (28-40)
--- NOTE | 2024-03-24 00:47 | PC.NURSE ---
Rounding complete; no needs at this time
[2024-03-24] MEDS: VANCOMYCIN HCL 1,000 MG in 0.9 % SODIUM CHLORIDE 250 ML 125 MG IV (01:10)
[2024-03-24 01:20] VITALS: BP 133/73; PULSE 68; O2SAT 95
--- NOTE | 2024-03-24 01:21 | PC.NURSE ---
Rounding done; patient has no needs
--- NOTE | 2024-03-24 01:21 | PC.NURSE ---
Helped ambulate the Pt to the bathroom per the physicians request o2 sats stayed above 90%
[2024-03-24 01:30] VITALS: BP 117/71; PULSE 63; O2SAT 96
--- NOTE | 2024-03-24 01:53 | PC.NURSE ---
Called House for a bed
[2024-03-24 02:00] VITALS: BP 126/75; PULSE 73; O2SAT 96
--- NOTE | 2024-03-24 02:09 | PC.NURSE ---
Report given to thanh
--- NOTE | 2024-03-24 02:14 | PC.NURSE ---
Patient decided she does not want to stay in the hospital. She is currently trying to call someone to get her.
[2024-03-24] MEDS: ALBUTEROL-HFA 90MCG/PUFF INHALER 8GM 2 PUFF IH (02:20)
[2024-03-24] MEDS: AEROCHAMBER/OPTIHALER 1 UNIT MC (02:28)
--- NOTE | 2024-03-24 02:28 | PC.NURSE ---
Rounding done, patient has no needs at this time
--- NOTE | 2024-03-24 02:37 | PC.NURSE ---
Patient IV removed. Catheter tip intact. Bleeding controlled
[2024-03-24 03:03] VITALS: BP 116/72; PULSE 76; RESP 16; TEMP 36.6; O2SAT 96
--- NOTE | 2024-03-24 03:04 | [facility].EDCP ---
Discharge Plan Disposition Patient Disposition: Home, Self-Care Condition: Good Prescriptions Prescriptions: No Action atorvastatin 40 mg Tablet 40 mg PO HS amlodipine 10 mg Tablet 10 mg PO DAILY fluticasone propion-salmeterol [Wixela Inhub] 250-50 mcg/dose Blister With Device 1 inh INHALATION BID ascorbic acid (vitamin C) 500 mg Tablet 500 mg PO Q48H levothyroxine [Synthroid] 125 mcg Tablet 125 mcg PO DAILY aspirin 81 mg Tablet,Chewable 81 mg PO DAILY albuterol sulfate 90 mcg/actuation Hfa Aerosol Inhaler 2 puff INHALATION Q6H PRN (Reason: Shortness Of Breath) ferrous sulfate 324 mg (65 mg iron) Tablet,Delayed Release (Dr/Ec) 324 mg PO Q48H Spiriva Respimat 1.25 mcg/actuation Mist 2 puff INHALATION DAILY azithromycin 250 mg Tablet 500 mg PO DAILY 2 Days Qty: 4 0RF prednisone 20 mg Tablet 40 mg PO DAILY 3 Days Qty: 6 0RF cefdinir 300 mg Capsule 300 mg PO BID 2 Days Qty: 4 0RF carvedilol 3.125 mg Tablet 3.125 mg PO BID 30 Days Qty: 60 0RF sacubitril-valsartan [Entresto] 24-26 mg Tablet 1 tab PO BID 30 Days Qty: 60 0RF Referrals Follow up/Referrals: Provider,Referral, MD [Primary Care Provider] - See instructions Clinical Impressions Clinical Impression: Pneumonia, Sepsis Instructions Patient Instructions: DI for Pneumonia -- Adult, DI for Sepsis -- Adult Print Language Print Language: Turkmen Discharge ED Provider: Mg Monae [facility] General Chief Complaint: Shortness of Breath/Dyspnea Stated Complaint: SOA, green phlegm Time Seen by Provider: 03/23/24 23:02 Mode of Arrival: EMS Source of Information: Patient and EMS Limitations: Physical Limitations Description of Symptoms (Recalled from ER Triage Doc. by RN): Patient reports shortness of breath, wheezing. States she is coughing up green stuff. States she is not on O2 at home. Has a history of COPD. History of Present Illness HPI narrative: 74-year-old female presents to the ER complaining of cough, shortness of breath, wheezing. Symptoms have been going for multiple days. She reports she does not wear oxygen at home but does have a history of COPD. Patient has to be redirected in order to obtain an accurate history, but she does state that she lives with other people who have recently had flu. She states she has an inhaler that has been helping her symptoms, but she believes it is out and her refill has not yet arrived in the mail. She does not have chest pain or pressure. She denies abdominal pain, nausea, vomiting, diarrhea, dysuria, hematuria, headache, dizziness, she does report subjective fever and chills. Cough is reportedly productive of green mucus. Patient reports she gets around with a wheelchair at home after recent heart attack and fall. Related Data Home Medications ?Medication ?Instructions ?Recorded ?Confirmed amlodipine 10 mg tablet 10 mg PO DAILY 12/06/22 03/23/24 atorvastatin 40 mg tablet 40 mg PO HS 12/06/22 03/23/24 albuterol sulfate 90 mcg/actuation 2 puff inhalation Q6H PRN 09/20/23 03/23/24 aerosol inhaler Shortness Of Breath ascorbic acid (vitamin C) 500 mg 500 mg PO Q48H 09/20/23 03/23/24 tablet aspirin 81 mg chewable tablet 81 mg PO DAILY 09/20/23 03/23/24 ferrous sulfate 324 mg (65 mg 324 mg PO Q48H 09/20/23 03/23/24 iron) tablet,delayed release fluticasone 250 mcg-salmeterol 50 1 inh inhalation BID 09/20/23 03/23/24 mcg/dose blistr powdr for inhalation (Wixela Inhub) levothyroxine 125 mcg tablet 125 mcg PO DAILY 09/20/23 03/23/24 (Synthroid) tiotropium bromide 1.25 2 puff inhalation DAILY 09/20/23 03/23/24 mcg/actuation mist for inhalation (Spiriva Respimat) Previous Rx's ?Medication ?Instructions ?Recorded azithromycin 250 mg tablet 500 mg (2 x 250 mg) PO DAILY 2 09/21/23 days #4 tabs carvedilol 3.125 mg tablet 3.125 mg PO BID 30 days #60 tabs 09/21/23 cefdinir 300 mg capsule 300 mg PO BID 2 days #4 caps 09/21/23 prednisone 20 mg tablet 40 mg (2 x 20 mg) PO DAILY 3 days 09/21/23 #6 tabs sacubitril 24 mg-valsartan 26 mg 1 tab PO BID 30 days #60 tabs 09/21/23 tablet (Entresto) Allergies Allergy/AdvReac Type Severity Reaction Status Date / Time Penicillins Allergy Verified 09/19/23 23:55 [facility] Disclaimer: The information contained in this section may have been updated after the patient was seen, as this information can be updated by other users. Medical History (Updated 03/24/24 @ 01:51 by Mg Monae MD) Fracture, intertrochanteric, right femur Leukemia Diabetes HLD (hyperlipidemia) HTN (hypertension) Surgical History Status post-operative repair of hip fracture No pertinent past surgical history Family History Other No significant family history Social History Smoking Status: Current every day smoker alcohol intake: never substance use type: denies use current occupational status: other Travel in the last 8 weeks: None Have you lived/traveled outside [place] in past 30 days?: No Contact w/someone who lives/traveled outside US past 30 days?: No Exposure to someone with infectious disease in past 14 days?: No Do you have a fever (greater than 100.4 F or 38 C)?: No Have you tested positive for COVID-19: No Exposed to someone with COVID-19 in past 14 days?: No Do you have a sore throat?: No Do you have a cough?: No Do you have any weakness?: No Do you have any diarrhea?: No Are you experiencing any unusual bleeding?: No Do you have any muscle aches/pain?: No Do you have any abdominal pain?: No Are you experiencing loss of taste or smell?: No Other Medical History Have you received the Flu Vaccine for this season: No Have you received the Pneumonia Vaccine: No ROS Obtained: Yes Systems reviewed as appropriate & no additional complaints except as documented Per HPI Physical Exam General General appearance: alert and in no apparent distress Comment: Chronically ill-appearing but nontoxic, not an extremis Head Head exam: atraumatic and normocephalic Eye Eye exam: Present PERRL and EOMI ENT ENT exam: Present mucous membranes moist Neck Neck exam: Present normal inspection and full ROM Chest Chest inspection: Present symmetric chest wall rise Respiratory Respiratory exam: Present normal lung sounds bilaterally (Rhonchi and rales bilaterally worse on the right than the left) and wheezes (Mild end expiratory); Absent respiratory distress or stridor Cardiovascular Cardiovascular exam: Present regular rate and normal rhythm Abdominal Exam Abdominal exam: Present soft; Absent distention, tenderness, guarding or rebound Extremities Exam Extremities exam: Present full ROM; Absent tenderness or edema Neurological Exam Neurological exam: Present alert, oriented X3 and normal gait (Ambulated in the ER with one-person support); Absent motor sensory deficit Psychiatric Psychiatric exam: Present normal affect and normal mood Skin Skin exam: Present warm and dry HEART Score HEART Score HEART Score assessment performed?: Yes History (anamnesis): Slightly suspicious ECG: Normal Age: >65 years Risk factors: Atherosclerosis history Troponin: </= normal limit HEART Score: 4 Critical Care Critical Care Time Critical Care Time: Yes Attestation: On 03/23/24, the high probability of a clinically significant, sudden or life threatening deterioration of the following system(s) (hemodynamic, respiratory) required my full and direct attention, intervention and personal management. The time I documented below is in addition to time spent performing reported procedures but includes the following listed in this critical care notation. Total Time Total Critical Care Time: 35 Medical Decision Making Medical Records Medical records reviewed: Yes I reviewed the patient's medical records. MR Comment: Patient was seen by cardiology while hospitalized in September 2023 with COPD exacerbation, NSTEMI. EF 30% started on aspirin and Plavix at that time. Also started Lasix, Entresto, Coreg. On antibiotics for possible pneumonia. Merlin Inquiry Pt receiving controlled substance: No Vital Signs Vital Signs: 03/23/24 22:36 03/23/24 22:40 03/23/24 22:45 Temperature 98.9 F Temperature Source Oral Pulse Rate 70 72 Pulse Rate [Right Radial] 71 Respiratory Rate 16 Blood Pressure Blood Pressure [Right Arm] 134/77 Blood Pressure Mean [Right Arm] 96 Blood Pressure Source Blood Pressure Source [Right Arm] Automatic Cuff Blood Pressure Position 02 Sat by Pulse Oximetry 95 94 L 93 L Oxygen Delivery Method Room Air 03/23/24 23:00 03/23/24 23:30 03/24/24 00:16 Temperature Temperature Source Pulse Rate 105 H 66 64 Pulse Rate [Right Radial] Respiratory Rate Blood Pressure 116/68 120/73 Blood Pressure [Right Arm] Blood Pressure Mean [Right Arm] Blood Pressure Source Blood Pressure Source [Right Arm] Blood Pressure Position 02 Sat by Pulse Oximetry 95 94 L 95 Oxygen Delivery Method 03/24/24 00:33 03/24/24 00:33 03/24/24 01:20 Temperature Temperature Source Pulse Rate 74 70 68 Pulse Rate [Right Radial] Respiratory Rate Blood Pressure 133/73 Blood Pressure [Right Arm] Blood Pressure Mean [Right Arm] Blood Pressure Source Blood Pressure Source [Right Arm] Blood Pressure Position 02 Sat by Pulse Oximetry 95 Oxygen Delivery Method 03/24/24 01:30 03/24/24 02:00 03/24/24 03:03 Temperature 97.9 F Temperature Source Oral Pulse Rate 63 73 76 Pulse Rate [Right Radial] Respiratory Rate 16 Blood Pressure 117/71 126/75 116/72 Blood Pressure [Right Arm] Blood Pressure Mean [Right Arm] Blood Pressure Source Automatic Cuff Blood Pressure Source [Right Arm] Blood Pressure Position Supine 02 Sat by Pulse Oximetry 96 96 Oxygen Delivery Method Room Air Lab Data Labs: Lab Results 03/23/24 22:40: WBC 50.9 H*, RBC 4.76, Hgb 13.5, Hct 40.4, MCV 84.9, MCH 28.4, MCHC 33.4, RDW 13.7, Plt Count 257, MPV 9.8, Neut % (Auto) 16.1 L, Lymph % (Auto) 78.9 H, [place] % (Auto) 2.9, Eos % (Auto) 1.4, Baso % (Auto) 0.3, Neut # (Auto) 8.2 H, Lymph # (Auto) 40.2 H, [place] # (Auto) 1.5 H, Eos # (Auto) 0.7 H, Baso # (Auto) 0.1, Total Counted 100, Neutrophils % (Manual) 13 L, Lymphocytes % (Manual) 84 H, Monocytes % (Manual) 1 L, Eosinophils % (Manual) 2, Platelet Estimate Normal, Poikilocytosis 1+, Ovalocytes 1+, [place] Cells 1+, D-Dimer 0.86 H, Sodium 134 L, Potassium 4.5, Chloride 100, Carbon Dioxide 27, Anion Gap 11.5, BUN 9, Creatinine 0.60, Estimated Creat Clear 43, Estimated GFR 98, Est GFR ( Amer) 119, Glucose 110 H, Calcium 8.9, Total Bilirubin 0.5, AST 31, ALT 15, Alkaline Phosphatase 84, Troponin I < 0.01, Total Protein 6.4, Albumin 4.0, Globulin 2.4, Albumin/Globulin Ratio 1.7 03/23/24 22:43: Urine Color Yellow, Urine Appearance Clear, Urine pH 7.0, Ur Specific [place] 1.010, Urine Protein Negative, Urine Glucose (UA) Negative, Urine Ketones Negative, Urine Blood Trace-l, Urine Nitrate Negative, Urine Bilirubin Negative, Urine Urobilinogen 0.2, Ur Leukocyte Esterase 1+ A, Urine RBC Occasional, Urine WBC 5-10, Ur Squamous Epith Cells 5-10, Urine Bacteria 1+ 03/23/24 22:55: SARS-CoV-2 (PCR) Not detected, Influenza A Untype (PCR) Not detected, Influenza Type B (PCR) Not detected 03/24/24 00:06: VBG pH 7.38, VBG pCO2 46.0, VBG pO2 39.3, VBG HCO3 26.6, VBG Total CO2 28.0 H, VBG O2 Saturation 75.1 H, VBG Base Excess 1.5, VBG Lactic Acid 1.2 03/23/24 22:40 03/23/24 22:40 Response Orders (Tests/Meds): ED MEDICATIONS Discontinued Medications Generic Name Dose Route Start Last Admin Trade Name Freq PRN Reason Stop Dose Admin Albuterol Sulfate 2 puff 03/24/24 01:51 03/24/24 02:20 Albuterol-Hfa 90mcg/Puff Inhaler 8gm 04/23/24 01:50 2 puff Q4HP PRN Administration Shortness Of Breath Albuterol/Ipratropium 9 ml 03/23/24 23:44 03/24/24 00:15 Ipratropium/Albuterol 3 Ml Neb 03/23/24 23:45 9 ml ONCE ONE Administration Piperacillin Sod/Tazobactam 100 mls @ 200 mls/hr 03/23/24 23:12 03/24/24 00:10 Sod 4.5 gm/ Sodium Chloride IV 03/23/24 23:41 200 mls/hr ONCE ONE Administration Lactated Ringer's 1,500 mls @ 999 mls/hr 03/23/24 23:29 03/24/24 00:10 Lactated Ringer's 1000 Ml Bag IV 03/24/24 00:59 999 mls/hr .Q1H31M ONE Administration Vancomycin HCl 1,000 mg/ 250 mls @ 125 mls/hr 03/23/24 23:45 03/24/24 01:10 Sodium Chloride IV 03/24/24 01:44 125 mls/hr ONCE ONE Administration Doxycycline Hyclate 100 mg/ 250 mls @ 166.667 mls/hr 03/24/24 00:59 03/24/24 01:21 Sodium Chloride IV 03/24/24 01:00 Not Given ONCE ONE Iopamidol 80 ml 03/23/24 23:51 03/23/24 23:52 Iopamidol-370 (76%);100ml Bottle IV 03/23/24 23:52 80 ml ONCE ONE Administration Miscellaneous 1 each 03/23/24 23:15 03/23/24 23:34 Vancomycin Consult Request NOTAPPLIC 04/22/24 23:14 1 each CONSULT PHARMACY MANAS Administration Miscellaneous 1 unit 03/24/24 01:51 03/24/24 02:28 Aerochamber/Optihaler MC 03/24/24 01:52 1 unit ONCE ONE Administration Sodium Chloride 50 ml 03/23/24 23:51 03/23/24 23:52 0.9 % Sodium Chloride 50 Ml Vial IV 03/23/24 23:52 50 ml ONCE ONE Administration Sodium Chloride 10 ml 03/23/24 23:51 03/23/24 23:52 Sodium Chloride 0.9% 10ml Syr (Rad Only) IV 03/23/24 23:52 10 ml ONCE ONE Administration ORDERS Category Date Time Status CT angio chest PE protocol Stat Cat Scan 03/23/24 23:11 Completed CXR 2 view (NOT portable) [XR chest 2V] Stat Exams 03/23/24 22:59 Completed Complete Blood Count Auto Diff Stat Lab 03/23/24 22:40 Completed Comprehensive Metabolic Panel Stat Lab 03/23/24 22:40 Completed D-Dimer Stat Lab 03/23/24 22:40 Completed Rapid PCR Covid and Flu A/B Stat Lab 03/23/24 22:55 Completed Troponin I Stat Lab 03/23/24 22:40 Completed UA [Urinalysis and Microscopic] Stat Lab 03/23/24 22:43 Completed Urine Culture Stat Micro 03/23/24 22:43 Received VBG [Venous Blood Gas] Stat RT 03/24/24 00:06 Completed MDM Narrative Medical Decision Narrative: In summary, this 74-year-old female with history of CLL, COPD, NSTEMI, HFrEF, hypertension presents to the emergency department today with shortness of breath, cough, fever. On initial evaluation patient is hemodynamically stable during my exam, tachycardia that was present on arrival is absent during my exam, she has mild expiratory wheezing, no respiratory distress, saturating in the mid 90s on room air, she does have rhonchi and rales worse in the right lung than the left, no peripheral edema, abdominal exam benign, GCS 15 with no neurologic deficits. Differential diagnosis includes but is not limited to ACS, PE, pneumonia, viral syndrome, asthma/COPD exacerbation, hypercarbia, lactic acidosis. Patient technically met sepsis criteria on arrival with trace tachycardia and fever and suspected pulmonary source. She received fluids but is not receiving full 30 mL/kg fluid bolus due to history of HFrEF, she is also receiving broad-spectrum antibiotics with vancomycin and Zosyn. Based on these concerns, I ordered serum labs, cardiac workup, CT imaging, viral swab. ECG personally interpreted demonstrates normal sinus rhythm, rate 65, normal axis, normal IA and QTc, no STEMI. Patient received fluids, broad-spectrum antibiotics, DuoNebs for treatment. Labs personally reviewed demonstrate leukocytosis WBC 50.9, this is slightly elevated but similar to prior and appropriate given the patient's history of CLL and likely active infection. Hemoglobin normal, platelets normal, patient has lymphocytosis consistent with CLL, D-dimer 0.86, patient is already going for CTA PE. VBG with normal pH, no hypercarbia, VBG lactic normal at 1.2. CMP with trace hyponatremia, patient is receiving IV fluids, good kidney function, troponin undetectably low less than 0.01 which is significantly reassuring given the patient's duration of symptoms. Unlikely to be cardiac in etiology with reassuring troponin and ECG. UA negative for findings of infection, COVID and influenza negative. Chest x-ray personally interpreted demonstrates right middle lobe infiltrate concerning for pneumonia. Patient is already being appropriately treated With broad-spectrum antibiotics that were administered earlier.. See radiology read for final interpretation. CTA personally interpreted does not demonstrate PE, stable lymphadenopathy, right middle lobe infiltrate evident. See radiology read for full interpretation. Patient was informed of incidental findings and instructed to follow these up outpatient. On reassessment patient reports she feels dramatically improved. She has not required any oxygen support while awake or asleep. I recommended admission since she met sepsis criteria on arrival. Patient demanded to be discharged stating she did not want to stay in the hospital. I explained to her the risks of this, however she still wants to be discharged. Her vitals are reassuring and she even ambulated in the ER which she does not typically do at home. Her oxygen saturation stayed above 92% while ambulating and she has not required nasal cannula support. Her fever and tachycardia improved and she is breathing very comfortably without wheezing. She is moving good air. She has capacity to make the decision to be discharged. I provided her with albuterol MDI which she was instructed how to use. She attempted to contact a friend who takes care of her, Robert. She was unable to make contact and was therefore going to be admitted, I talked to the hospitalist and he had accepted the patient for admission, however when the hospitalist came to her room, she again changed her mind and demanded to be discharged. We were eventually able to get a hold of Robert and I spoke to him on the phone. Because patient typically gets her prescriptions as mail-order through the [place], we discussed that someone is going to have to apple picking supervisor her prescriptions in person to not delay continued antibiotics for treatment of pneumonia, she requested they be sent to [place]. Because she had initially been placed in admitted status in the computer I was unable to E-prescribe, but did call Sally Moody as requested by the patient and left a voicemail for doxycycline 100 mg twice daily for 7 days. Patient and Robert are aware of this. He states she does have a [facility] customer sales representative who comes to the house as well as friends in the apartment complex who check on her, he and the patient are comfortable with her going home. He states he is able to come apple picking supervisor the patient, and she is still demanding to be discharged. I gave both him and the patient strict instructions on continued symptomatic monitoring and management including use of the provided albuterol inhaler, antibiotics, follow-up instructions, and return precautions for the ER. They both indicated understanding and the patient was discharged in stable condition. Because patient was originally going to be admitted, her discharge tab was not able to be edited. I provided her the following written instructions which she also received verbally: You were evaluated in the ER and are appropriate for discharge at this time.? Take the prescribed doxycycline antibiotics as directed.? Do not skip doses, do not stop taking it early. Use the provided albuterol inhaler 2 puffs every 6 hours if needed for shortness of breath. Take Tylenol or ibuprofen if needed for fever, do not exceed the recommended dose on the bottle.? Drink water and eat a small snack each time you take these medications to avoid side effects. Follow-up with your primary care doctor for reevaluation in 2 to 3 days. Return to the ER with new, worsening, or otherwise concerning symptoms.
--- NOTE | 2024-03-26 15:27 | PC.NURSE ---
Discussed with urine culture results, contacted pt and she denies urinary symptoms at this time, reports that she is feeling better than she has been. no new orders
--- NOTE | 2024-03-28 17:12 | PC.NURSE ---
URINE CULTURE DISCUSSED WITH DR MAC, NO NEW ORDERS
== END 2024-03-24 03:19 | disposition home or self-care (01) ==
LOC: ER 03-24 01:51 → 2ND 03-24 01:58
PROVIDERS: Emergency Provider Emergency Medicine
DX: A41.9 Sepsis, unspecified organism (principal); J18.9 Pneumonia, unspecified organism
CPT/HCPCS: 71046; 71275; 80053; 81001; 82803; 84484; 85007; 85025; 85027; 85378; 87086; 87088; 87186; 87636; 93005; 94640; 96365; 96367; 99291; J2543; J3370; J7050; J7120; J7620; Q9967